=== PATIENT | male | born 1960 | race Asian ===

== ENCOUNTER 2016-09-11 18:20 | Emergency (ER) | payer SELFPAY ==
[2016-09-11] MEDS ORDERED: ASPIRIN 81 MG TABLET, CHEWABLE PO ONE (18:41)
[2016-09-11 19:02] LABS: ABSOLUTE EOSINOPHILS # (AUTO) 0.1 10^3/uL (0.0-0.6); ABSOLUTE LYMPHOCYTES (AUTO) 1.1 10^3/uL (0.5-4.7); ABSOLUTE MONOCYTES (AUTO) 0.4 10^3/uL (0.1-1.4); ABSOLUTE NEUT (AUTO) 2.6 10^3/uL (1.7-8.2); EOSINOPHILS % (AUTO) 2.5 % (0-6); HEMATOCRIT 41.3 % (37.9-51.0); HEMOGLOBIN 13.6 g/dL (13.5-17.0); HGB HCT DIFFERENCE -0.5; LYMPHOCYTES % (AUTO) 25.3 % (13-45); MEAN CORPUSCULAR HEMOGLOBIN 32.6 pg (27.0-33.4); MEAN CORPUSCULAR HGB CONC 32.9 g/dL (32.0-36.0); MEAN CORPUSCULAR VOLUME 99 fl (80-97); MONOCYTES % (AUTO) 9.1 % (3-13); RED BLOOD COUNT 4.17 10^6/uL (4.35-5.55); RED CELL DISTRIBUTION WIDTH 13.1 % (11.5-14.0); SEGMENTED NEUTROPHILS % (AUTO) 62.1 % (42-78); WHITE BLOOD COUNT 4.2 10^3/uL (4.0-10.5)
--- NOTE | 2016-09-11 19:12 | RADIOLOGY REPORT (SQ) ---
EXAM DESCRIPTION: CHEST SINGLE VIEW COMPLETED DATE/TIME: 09/11/2016 7:05 pm REASON FOR STUDY: bed 13 cp COMPARISON: 08/30/2015 EXAM PARAMETERS: NUMBER OF VIEWS: One view. TECHNIQUE: Single frontal radiographic view of the chest acquired. RADIATION DOSE: NA LIMITATIONS: None. FINDINGS: LUNGS AND PLEURA: No opacities, masses or pneumothorax. No pleural effusion. MEDIASTINUM AND HILAR STRUCTURES: No masses. Contour normal. HEART AND VASCULAR STRUCTURES: Heart normal in size. Normal vasculature. BONES: No acute findings. HARDWARE: EKG leads overlie the chest. OTHER: No other significant finding. IMPRESSION: NO ACUTE RADIOGRAPHIC FINDING IN THE CHEST. TECHNICAL DOCUMENTATION: JOB ID: [id number]
[2016-09-11 19:15] LABS: ALANINE AMINOTRANSFERASE 25 U/L (21-72); ALBUMIN 3.7 g/dL (3.5-5.0); ALKALINE PHOSPHATASE 56 U/L (38-126); ANION GAP 10 (5-19); ASPARTATE AMINO TRANSFERASE 26 U/L (17-59); BILIRUBIN,DIRECT 0.3 mg/dL (0.0-0.4); BILIRUBIN,TOTAL 0.8 mg/dL (0.2-1.3); BLOOD UREA NITROGEN 6 mg/dL (7-20); CALCIUM 8.9 mg/dL (8.4-10.2); CARBON DIOXIDE 23 mmol/L (22-30); CHLORIDE 105 mmol/L (98-107); CREATINE KINASE 236 U/L (55-170); CREATININE RESULT 0.83 mg/dL (0.52-1.25); GLUCOSE 91 mg/dL (75-110); POTASSIUM 3.9 mmol/L (3.6-5.0); SODIUM 138.1 mmol/L (137-145); TOTAL PROTEIN 6.4 g/dL (6.3-8.2)
[2016-09-11 19:27] LABS: CREATINE KINASE MB 1.24 ng/mL (<4.55)
[2016-09-11 19:28] LABS: TROPONIN I < 0.012 ng/mL
[2016-09-11] MEDS ORDERED: ALBUTEROL SULFATE 0.083% NEB 2.5 MG/3 ML AMPUL NEB ONE (19:54)
[2016-09-11] MEDS ORDERED: IBUPROFEN 600 MG TABLET PO ONE (19:54)
--- NOTE | 2016-09-11 19:56 | ER Document Report ---
ED Cardiac - General Chief Complaint: Chest Pain Stated Complaint: CHEST PAIN Time Seen by Provider: 09/11/16 18:50 Mode of Arrival: Ambulatory Information source: Patient TRAVEL OUTSIDE OF THE [place] IN LAST 30 DAYS: No - HPI Patient complains to provider of: Chest pain Was the onset of pain: Gradual When did pain begin: 3-4 days Is the pain a: New problem Chest pain location: Other - left chest wall Quality of pain: Achy Severity now: Mild Severity at worst: Mild Chest pain precipitating factors: At Rest Cardiac risk factors: Smoker Associated symptoms: Shortness of breath Exacerbated by: Coughing Similar symptoms previously: No Recently seen / treated by doctor: No Notes: Patient is a 55-year-old male in the emergency room complaining of left-sided chest wall pain that has been going on for the past 3-4 days, he reports it is worsened with coughing, or certain movements, he does report shortness of breath at times, denies a headache, no nausea or vomiting, states he has not had much of an appetite recently and has had decreased p.o. intake, he did not take anything for pain at home prior to coming to the emergency room, has no history of [place] or coronary artery disease that he is aware of - Related Data Allergies/Adverse Reactions: No Known Allergies Allergy (Verified 10/28/14 11:34) Past Medical History - General Information source: Patient - Social History Smoking Status: Current Every Day Smoker Chew tobacco use (# tins/day): Yes - 1/2 ppd Frequency of alcohol use: Rare Drug Abuse: None Family History: CAD, DM, Hyperlipidemia, Hypertension, Malignancy - Past Medical History Cardiac Medical History: Reports: Hx Heart Attack, Hx Hypercholesterolemia, Hx Hypertension Pulmonary Medical History: Reports: Hx Asthma, Hx Pneumonia Neurological Medical History: Reports: Hx Cerebrovascular Accident Endocrine Medical History: Reports: Hx Diabetes Mellitus Type 2 Musculoskeltal Medical History: Reports Hx Arthritis, Reports Hx Musculoskeletal Trauma Skin Medical History: Reports Hx Cellulitis Traumatic Medical History: Reports: Hx Fractures - Right ankle and leg Past Surgical History: Reports: Hx Appendectomy, Hx Orthopedic Surgery - orif left leg - Immunizations Immunizations up to date: Yes Hx Diphtheria, Pertussis, Tetanus Vaccination: Yes - PT UNSURE Review of Systems - Review of Systems Constitutional: No symptoms reported EENT: No symptoms reported Cardiovascular: See HPI Respiratory: See HPI Gastrointestinal: No symptoms reported Genitourinary: No symptoms reported Male Genitourinary: No symptoms reported Musculoskeletal: No symptoms reported Skin: No symptoms reported Hematologic/Lymphatic: No symptoms reported Neurological/Psychological: No symptoms reported -: Yes All other systems reviewed and negative Physical Exam - Vital signs Vitals: Pulse Ox 99 09/11/16 18:55 Interpretation: Normal - General General appearance: Appears well, Alert - HEENT Head: Normocephalic, Atraumatic Eyes: Normal Pupils: PERRL - Respiratory Respiratory status: No respiratory distress Chest status: Tender - tender to palpate in left anterior chest wall Breath sounds: Normal Chest palpation: Normal - Cardiovascular Rhythm: Regular Heart sounds: Normal auscultation Murmur: No - Abdominal Inspection: Normal Distension: No distension Bowel sounds: Normal Tenderness: Nontender Organomegaly: No organomegaly - Back Back: Normal, Nontender - Extremities General upper extremity: Normal inspection, Nontender, Normal color, Normal ROM , Normal temperature General lower extremity: Normal inspection, Nontender, Normal color, Normal ROM , Normal temperature, Normal weight bearing. No: Maria A's sign - Neurological Neuro grossly intact: Yes Cognition: Normal Orientation: AAOx4 [place] Coma Scale Eye Opening: Spontaneous [place] Coma Scale Verbal: Oriented [place] Coma Scale Motor: Obeys Commands [place] Coma Scale Total: 15 Speech: Normal Motor strength normal: LUE, RUE, LLE, RLE Sensory: Normal - Psychological Associated symptoms: Normal affect, Normal mood - Skin Skin Temperature: Warm Skin Moisture: Dry Skin Color: Normal Course - Re-evaluation Re-evalutation: 09/11/16 22:27 Patient symptoms consistent with musculoskeletal chest pain, likely from COPD/ bronchitis, he was advised to quit smoking, provided with an albuterol inhaler and prescription for Motrin, as well as information for follow-up, advised to return if any additional concerns, patient acknowledges understanding and agreement with this plan - Vital Signs Vital signs: Temp Pulse Resp BP Pulse Ox 98.3 F 16 149/83 H 97 09/11/16 19:02 09/11/16 21:01 09/11/16 21:01 09/11/16 21:01 - Laboratory Result Diagrams: 09/11/16 18:53 09/11/16 18:53 Laboratory results interpreted by me: 09/11/16 09/11/16 18:53 18:53 RBC 4.17 L MCV 99 H BUN 6 L Creatine Kinase 236 H - Diagnostic Test Radiology reviewed: Image reviewed, Reports reviewed - EKG Interpretation by Me EKG shows normal: Sinus rhythm Rate: Normal Rhythm: NSR Discharge - Discharge Clinical Impression: Chest wall pain, Bronchitis Condition: Stable Disposition: HOME, SELF-CARE Instructions: Bronchitis ([facility]), Bronchitis With Bronchospasm (Wheezing) ([facility]) Additional Instructions: Follow up with your primary care provider in one to 2 days. Return to the emergency room immediately if symptoms worsen or any additional concerns. Prescriptions: Albuterol Sulfate [Proair HFA Inhalation Aerosol 8.5 gm MDI] 1 puff IH Q4 PRN # 1 mdi PRN Reason: Ibuprofen [Motrin 600 Mg Tablet] 600 mg PO TID #30 tablet Forms: Smoking Cessation Education, Return to Work
[2016-09-11 21:14] VITALS: BP 149/83
--- NOTE | 2016-09-11 23:44 | EKG REPORT ---
SEVERITY:- ABNORMAL ECG - SINUS RHYTHM PROBABLE LEFT VENTRICULAR HYPERTROPHY ANTERIOR ST ELEVATION, PROBABLY DUE TO LVH : Confirmed by: Catalino Hsu 11-Sep-2016 23:43:35
== END 2016-09-11 21:21 | disposition home or self-care (01) ==
LOC: ER 18:20
DX: J40 Bronchitis, not specified as acute or chronic (principal); R07.89 Other chest pain; R06.02 Shortness of breath; F17.210 Nicotine dependence, cigarettes, uncomplicated; E78.00 Pure hypercholesterolemia, unspecified; I10 Essential (primary) hypertension; E11.9 Type 2 diabetes mellitus without complications; I25.2 Old myocardial infarction
CPT/HCPCS: 36415; 71010; 80053; 82550; 82553; 84484; 85025; 93005; 93010; 94640; 99285

== ENCOUNTER 2017-02-04 11:22 | Emergency (ER) | payer SELFPAY ==
[2017-02-04 11:29] VITALS: BP 120/78
== END 2017-02-04 12:37 | disposition left against medical advice (07) ==
LOC: ER 11:22
DX: Z53.21 Procedure and treatment not carried out due to patient leaving prior to being seen by health care provider (principal)

== ENCOUNTER 2017-03-18 16:47 | Emergency (ER) | payer SELFPAY ==
--- NOTE | 2017-03-18 17:47 | ER Document Report ---
ED Medical Screen (RME) - General Chief Complaint: Flu Symptoms Stated Complaint: SICK Time Seen by Provider: 03/18/17 17:40 Notes: 56-year-old heavy smoking alcoholic comes emergency room complaining of nausea vomiting, chest pain, chills, yellow productive cough sometimes with blood in it , yellow heavy nasal discharge with blood and sometimes. This going on for 3 weeks. No regular medical care. Brief exam shows patient have wheezes and rhonchi when he coughs. He does have nasal sinus congestion. There is a smell of alcohol although he claims he only drinks one a day. I have greeted and performed a rapid initial assessment of this patient. A comprehensive ED assessment and evaluation of the patient, analysis of test results and completion of the medical decision making process will be conducted by additional ED providers. TRAVEL OUTSIDE OF THE [place] IN LAST 30 DAYS: No - Related Data Allergies/Adverse Reactions: No Known Allergies Allergy (Verified 03/18/17 17:28) Home Medications: Current Home Medications No Home Medications 03/18/17 [History] Past Medical History - Social History Chew tobacco use (# tins/day): No Frequency of alcohol use: Occasional Drug Abuse: None - Past Medical History Cardiac Medical History: Reports: Hx Heart Attack, Hx Hypercholesterolemia, Hx Hypertension Pulmonary Medical History: Reports: Hx Asthma, Hx Bronchitis, Hx COPD, Hx Pneumonia Neurological Medical History: Reports: Hx Cerebrovascular Accident Endocrine Medical History: Reports: Hx Diabetes Mellitus Type 2 Renal/ Medical History: Denies: Hx Peritoneal Dialysis Musculoskeltal Medical History: Reports Hx Arthritis, Reports Hx Musculoskeletal Trauma Skin Medical History: Reports Hx Cellulitis Traumatic Medical History: Reports: Hx Fractures - Right ankle and leg Past Surgical History: Reports: Hx Appendectomy, Hx Orthopedic Surgery - orif left leg - Immunizations Immunizations up to date: Yes Hx Diphtheria, Pertussis, Tetanus Vaccination: Yes - PT UNSURE Physical Exam - Vital signs Vitals: Temp Pulse Resp BP Pulse Ox 97.8 F 88 12 95/64 L 97 03/18/17 17:03/18/17 17:09 03/18/17 17:03/18/17 17:03/18/17 17:09 Course - Vital Signs Vital signs: Temp Pulse Resp BP Pulse Ox 97.8 F 88 12 95/64 L 97 03/18/17 17:09 03/18/17 17:09 03/18/17 17:09 03/18/17 17:09 03/18/17 17:09
--- NOTE | 2017-03-18 18:07 | RADIOLOGY REPORT (SQ) ---
EXAM DESCRIPTION: CHEST PA/LAT COMPLETED DATE/TIME: 03/18/2017 5:55 pm REASON FOR STUDY: Wheezes, rhonchi, productive cough 3 weeks COMPARISON: 2015. TECHNIQUE: Frontal and lateral radiographic views of the chest acquired. NUMBER OF VIEWS: Two view. LIMITATIONS: None. FINDINGS: LUNGS AND PLEURA: No opacities, masses or pneumothorax. No pleural effusion. MEDIASTINUM AND HILAR STRUCTURES: No masses or contour abnormalities. HEART AND VASCULAR STRUCTURES: Heart normal size. No evidence for failure. BONES: No acute findings. HARDWARE: None in the chest. OTHER: No other significant finding. IMPRESSION: NO SIGNIFICANT RADIOGRAPHIC FINDING IN THE CHEST. TECHNICAL DOCUMENTATION: JOB ID: [id number] [employer]- All Rights Reserved
[2017-03-18 18:38] LABS: ABSOLUTE EOSINOPHILS # (AUTO) 0.1 10^3/uL (0.0-0.6); ABSOLUTE LYMPHOCYTES (AUTO) 1.3 10^3/uL (0.5-4.7); ABSOLUTE MONOCYTES (AUTO) 0.5 10^3/uL (0.1-1.4); EOSINOPHILS % (AUTO) 2.3 % (0-6); HEMATOCRIT 45.9 % (37.9-51.0); HEMOGLOBIN 15.4 g/dL (13.5-17.0); MEAN CORPUSCULAR HEMOGLOBIN 33.2 pg (27.0-33.4); MEAN CORPUSCULAR HGB CONC 33.5 g/dL (32.0-36.0); MEAN CORPUSCULAR VOLUME 99 fl (80-97); PLATELET COUNT 177 10^3/uL (150-450); RED BLOOD COUNT 4.64 10^6/uL (4.35-5.55); RED CELL DISTRIBUTION WIDTH 12.5 % (11.5-14.0); SEGMENTED NEUTROPHILS % (AUTO) 60.7 % (42-78); TOTAL CELLS COUNTED % (AUTO) 100 %; WHITE BLOOD COUNT 4.9 10^3/uL (4.0-10.5)
[2017-03-18 18:50] LABS: ALANINE AMINOTRANSFERASE 119 U/L (21-72); ALCOHOL 264 mg/dL (NONE DETECTED); ALKALINE PHOSPHATASE 77 U/L (38-126); ANION GAP 10 (5-19); ASPARTATE AMINO TRANSFERASE 212 U/L (17-59); BILIRUBIN,DIRECT 0.2 mg/dL (0.0-0.4); BILIRUBIN,TOTAL 0.6 mg/dL (0.2-1.3); BLOOD UREA NITROGEN 2 mg/dL (7-20); CALCIUM 9.3 mg/dL (8.4-10.2); CARBON DIOXIDE 25 mmol/L (22-30); CHLORIDE 92 mmol/L (98-107); GLUCOSE 86 mg/dL (75-110); POTASSIUM 4.2 mmol/L (3.6-5.0); TOTAL PROTEIN 6.6 g/dL (6.3-8.2)
[2017-03-18] MEDS ORDERED: NORMAL SALINE 1000 ML 1,000 ML IV PRN (19:38)
[2017-03-18] MEDS ORDERED: IPRATROPIUM/ALBUTEROL 0.5-2.5 MG/3 ML AMPUL NEB ONE (19:38)
[2017-03-18] MEDS ORDERED: DEXAMETHASONE SOD PHOS INJ 10 MG/1 ML VIAL IM ONE (19:38)
--- NOTE | 2017-03-18 19:43 | ER Document Report ---
ED General - General Chief Complaint: Flu Symptoms Stated Complaint: SICK Time Seen by Provider: 03/18/17 17:40 TRAVEL OUTSIDE OF THE [place] IN LAST 30 DAYS: No - HPI Notes: Patient is a 56-year-old male with a history of alcohol abuse and tobacco abuse who presents to the ED complaining of nasal congestion/discharge, subjective fever, body ache, dry nonproductive cough, wheezing 2-3 weeks. Patient states that he has a blood tinge in his nasal discharge at times when he blows his nose. Patient states that he has had 1 week of steady chest pain to the left anterior chest wall that worsens when he pushes on it per patient. Patient states that he did have an episode of nausea and vomiting over the last 1-2 days. Patient states that he is still eating and drinking, but does have a decreased p.o. intake at this time. Patient states that he is urinating normally and having normal bowel movements. Patient states that he is ready and wants to go home. PMH of NH (pt not sure if any stents), COPD, DM, HTN. Denies any drug allergies. Denies any headache, neck pain, URI, sore throat, palpitations, syncope, shortness of breath, dyspnea, abdominal pain, diarrhea, urinary retention, dysuria, hematuria, loss of control of bowel or bladder, numbness/tingling, saddle anesthesia, muscle paralysis/weakness, or rash. - Related Data Allergies/Adverse Reactions: No Known Allergies Allergy (Verified 03/18/17 17:28) Home Medications: Current Home Medications No Home Medications 03/18/17 [History] Past Medical History - Social History Smoking Status: Current Every Day Smoker Chew tobacco use (# tins/day): No Frequency of alcohol use: Occasional Drug Abuse: None Family History: CAD, DM, Hyperlipidemia, Hypertension, Malignancy Patient has suicidal ideation: No Patient has homicidal ideation: No - Past Medical History Cardiac Medical History: Reports: Hx Heart Attack, Hx Hypercholesterolemia, Hx Hypertension Pulmonary Medical History: Reports: Hx Asthma, Hx Bronchitis, Hx COPD, Hx Pneumonia Neurological Medical History: Reports: Hx Cerebrovascular Accident Endocrine Medical History: Reports: Hx Diabetes Mellitus Type 2 Renal/ Medical History: Denies: Hx Peritoneal Dialysis Musculoskeltal Medical History: Reports Hx Arthritis, Reports Hx Musculoskeletal Trauma Skin Medical History: Reports Hx Cellulitis Traumatic Medical History: Reports: Hx Fractures - Right ankle and leg Past Surgical History: Reports: Hx Appendectomy, Hx Orthopedic Surgery - orif left leg - Immunizations Immunizations up to date: Yes Hx Diphtheria, Pertussis, Tetanus Vaccination: Yes - PT UNSURE Review of Systems - Review of Systems Notes: REVIEW OF SYSTEMS: CONSTITUTIONAL : see hpi EENT: see hpi CARDIOVASCULAR: see hpi. Denies palpitations or racing or irregular heart beat. Denies ankle edema. RESPIRATORY: Denies cough, cold, or chest congestion. Denies shortness of breath, difficulty breathing, or wheezing. GASTROINTESTINAL: Denies abdominal pain or distention. see hpi. Denies blood in vomitus, stools, or per rectum. Denies black, tarry stools. Denies constipation. GENITOURINARY: Denies difficulty urinating, painful urination, burning, frequency, blood in urine, or discharge. MUSCULOSKELETAL: Denies back or neck pain or stiffness. Denies joint pain or swelling. SKIN: Denies rash, lesions or sores. NEUROLOGICAL: Denies passing out or loss of consciousness. Denies dizziness or lightheadedness. Denies headache. Denies weakness or paralysis or loss of use of either side. Denies problems with gait or speech. Denies sensory loss, numbness, or tingling. Denies seizures. ALL OTHER SYSTEMS REVIEWED AND NEGATIVE. Dictation was performed using [employer] voice recognition software Physical Exam - Vital signs Vitals: Temp Pulse Resp BP Pulse Ox 97.8 F 88 12 95/64 L 97 03/18/17 17:09 03/18/17 17:09 03/18/17 17:09 03/18/17 17:09 03/18/17 17:09 Notes: PHYSICAL EXAMINATION: GENERAL: Well-appearing, well-nourished and in no acute distress. A&Ox4, pt answers questions appropriately. Smell of ETOH noted. HEAD: Atraumatic, normocephalic. EYES: Pupils equal round and reactive to light, extraocular movements intact, sclera anicteric, conjunctiva are normal. ENT: EAC clear b/l. TM's intact b/l without erythema, fluid, or perforation. Nares patent and with yellow discharge. oropharynx clear without exudates. No tonsilar hypertrophy or erythema. Moist mucous membranes. No sinus tenderness. No airway compromise. NECK: Normal range of motion, supple without lymphadenopathy. No rigidity/ meningismus. LUNGS: Wheezing throughout, no retractions or distress HEART: Regular rate and rhythm without murmurs, rubs, gallops. ABDOMEN: Soft, nontender, nondistended abdomen. No guarding, no rebound. No masses appreciated. Normal bowel sounds present. No CVA tenderness bilaterally. Musculoskeletal: FROM to passive/active. Strength 5+/5. Maria A neg. No calf erythema/swelling Extremities: No cyanosis, clubbing, or edema b/l. Peripheral pulses 2+. Capillary refill less than 3 seconds. NEUROLOGICAL: Cranial nerves grossly intact. Normal speech, normal gait. Normal sensory, motor exams PSYCH: Normal mood, normal affect. SKIN: Warm, Dry, normal turgor, no rashes or lesions noted. Course - Re-evaluation Re-evalutation: 03/18/17 20:16 Patient is an afebrile, well-hydrated, 56-year-old male who presents the ED with a 264 blood alcohol, URI, acute bronchitis with wheezing, and chest wall pain found on physical exam. Vitals are stable. Upon entering the room, patient was resting that it is not worsening he is ready to go home. Patient answered all questions appropriately and was cognitively aware and on point. Patient is tolerating p.o. without any difficulties. Thoroughly reviewed with patient that I want to run cardiac labs as well as breathing treatments and medicine to help with his wheezing. Patient states that he is not worried about his breathing and just wants to go. Patient does have a ride home. Risks and benefits understood including the possibility of if testing is not completed and treatment aborted. Patient verbalized understanding of this decision and signed out AMA. Advised patient to follow-up closely with his primary care doctor in the next 1-2 days otherwise return to the ED with any worsening/ongoing symptoms. Patient is in agreement. - Vital Signs Vital signs: Temp Pulse Resp BP Pulse Ox 98.0 F 82 15 97/61 L 97 03/18/17 19:27 03/18/17 19:27 03/18/17 19:27 03/18/17 19:27 03/18/17 19:27 - Laboratory Result Diagrams: 03/18/17 18:08 03/18/17 18:08 Laboratory results interpreted by me: 03/18/17 03/18/17 03/18/17 18:08 18:08 18:08 MCV 99 H Sodium 127.0 L Chloride 92 L BUN 2 L AST 212 H ALT 119 H Creatine Kinase 341 H Discharge - Discharge Clinical Impression: Acute bronchitis Qualifiers: Bronchitis organism: unspecified organism Qualified Code(s): J20.9 - Acute bronchitis, unspecified Condition: Stable Disposition: AGAINST MEDICAL ADVICE
[2017-03-18 19:44] VITALS: BP 97/61
[2017-03-18] MEDS ORDERED: MAGNESIUM SULFATE/D5W 1 GM/100 ML RTUPB IV SCH (19:45)
== END 2017-03-18 19:55 | disposition left against medical advice (07) ==
LOC: ER 16:47
DX: J44.0 Chronic obstructive pulmonary disease with (acute) lower respiratory infection (principal); J20.9 Acute bronchitis, unspecified; J34.89 Other specified disorders of nose and nasal sinuses; R05 Cough; R07.89 Other chest pain; R11.2 Nausea with vomiting, unspecified; I10 Essential (primary) hypertension; I25.2 Old myocardial infarction; E11.9 Type 2 diabetes mellitus without complications; F17.200 Nicotine dependence, unspecified, uncomplicated; Z87.01 Personal history of pneumonia (recurrent); Z53.20 Procedure and treatment not carried out because of patient's decision for unspecified reasons
CPT/HCPCS: 36415; 71046; 80053; 80307; 82550; 85025; 87070; 87077; 87186; 87205; 99283

== ENCOUNTER 2017-03-25 20:07 | Emergency (ER) | payer SELFPAY ==
[2017-03-25] MEDS ORDERED: NORMAL SALINE 1000 ML 1,000 ML IV ONE (20:23)
--- NOTE | 2017-03-25 20:25 | ER Document Report ---
ED General - General Stated Complaint: RESPIRATORY DISTRESS Time Seen by Provider: 03/25/17 20:16 Notes: Patient is a 56-year-old male who comes emergency department for chief complaint of concerns about his breathing. Patient states that his neighbor called EMS after they had trouble arousing him. He has had some alcohol tonight , he has had cough and intermittent shortness of breath with wheezing for the past week or so. He denies fevers. He denies vomiting or chest pain. He states he hurts in his right flank intermittently as well. He denies injury. He takes a daily aspirin, smokes, does not take any daily medications otherwise. He states he was prescribed antibiotics for pneumonia 1 week ago but did not fill it. TRAVEL OUTSIDE OF THE [place] IN LAST 30 DAYS: No - Related Data Allergies/Adverse Reactions: No Known Allergies Allergy (Verified 03/18/17 17:28) Past Medical History - General Information source: Patient - Social History Smoking Status: Current Every Day Smoker Smoking Education Provided: Yes - <3 min Frequency of alcohol use: Heavy Lives with: Alone Family History: CAD, DM, Hyperlipidemia, Hypertension, Malignancy - Past Medical History Cardiac Medical History: Reports: Hx Heart Attack, Hx Hypercholesterolemia, Hx Hypertension Pulmonary Medical History: Reports: Hx Asthma, Hx Bronchitis, Hx COPD, Hx Pneumonia Neurological Medical History: Reports: Hx Cerebrovascular Accident Endocrine Medical History: Reports: Hx Diabetes Mellitus Type 2 Renal/ Medical History: Denies: Hx Peritoneal Dialysis Musculoskeltal Medical History: Reports Hx Arthritis, Reports Hx Musculoskeletal Trauma Skin Medical History: Reports Hx Cellulitis Traumatic Medical History: Reports: Hx Fractures - Right ankle and leg Past Surgical History: Reports: Hx Appendectomy, Hx Orthopedic Surgery - orif left leg - Immunizations Immunizations up to date: Yes Hx Diphtheria, Pertussis, Tetanus Vaccination: Yes - PT UNSURE Review of Systems - Review of Systems Constitutional: See HPI EENT: No symptoms reported Cardiovascular: See HPI Respiratory: See HPI Gastrointestinal: No symptoms reported Genitourinary: No symptoms reported Male Genitourinary: No symptoms reported Musculoskeletal: See HPI Skin: No symptoms reported Hematologic/Lymphatic: No symptoms reported Neurological/Psychological: No symptoms reported Physical Exam - Vital signs Vitals: Temp Pulse Resp BP Pulse Ox 97.4 F 80 12 126/77 H 97 03/25/17 20:07 03/25/17 20:07 03/25/17 20:07 03/25/17 20:07 03/25/17 20:07 - General General appearance: Other - Patient slurring his words and appears intoxicated but he is still alert, cooperative, conversational. He is unsteady on his feet In distress: None - HEENT Head: Normocephalic, Atraumatic Eyes: Normal Conjunctiva: Normal Extraocular movements intact: Yes Eyelashes: Normal Pupils: PERRL Mouth/Lips: Normal Mucous membranes: Normal Pharynx: Normal Neck: Normal - Respiratory Respiratory status: No respiratory distress. No: Respiratory distress, Labored , Tachypnea Breath sounds: Decreased air movement. No: Nonproductive cough, Productive cough, Rales, Rhonchi, Stridor, Wheezing - Cardiovascular Rhythm: Regular. No: Tachycardia Heart sounds: Normal auscultation, S1 appreciated, S2 appreciated - Abdominal Inspection: Normal Tenderness: Nontender. No: Tender, Guarding - Back Back: Normal, Nontender - Extremities General upper extremity: Normal inspection, Nontender, Normal strength, Normal temperature General lower extremity: Normal inspection, Nontender, Normal strength, Normal temperature - Neurological Neuro grossly intact: Yes Cognition: Normal Orientation: AAOx4 Cranial nerves: Normal Cerebellar coordination: Gait ataxia Motor strength normal: LUE, RUE, LLE, RLE Additional motor exam normals: Equal customer experience strategist - Skin Skin Temperature: Warm Skin Moisture: Dry Skin Color: Normal Course - Re-evaluation Re-evalutation: EKG showing questionable minimal anterior ST elevations. These appear to be consistent with prior. Discussed with Dr. Cassidy. Repeat EKG was performed approximately 30 minutes later and does not show any significant differences. 2 sets of troponins were obtained and shows no concerning elevation. Patient denying any chest pain, states he felt short of breath earlier and has intermittent cough and congestion with wheezing. Chest x-ray unremarkable. Venous blood gas unremarkable. Vital signs unremarkable. Patient in no respiratory distress on my examination, has a few scattered wheezes intermittently which clear with coughing. CBC unremarkable, chemistry shows mild elevation of liver function tests consistent with alcohol use tonight, patient states he "drank a some 40s". He is clinically intoxicated. He was initially given IV fluids. Urinalysis is unremarkable. Patient medically clear but he does not have a ride home and he is too intoxicated to leave. Patient will be monitored in the emergency department until he is either clinically sober and walking without any difficulty and without having any slurring of words or until he has a ride home. 03/26/17 06:50 Patient is easily arousable, stands and walks without difficulty, is clinically sober. He is waiting for a ride home. - Vital Signs Vital signs: Temp Pulse Resp BP Pulse Ox 97.4 F 80 16 126/85 H 97 03/25/17 20:07 03/25/17 20:07 03/26/17 02:31 03/26/17 02:31 03/26/17 02:31 - Laboratory Result Diagrams: 03/25/17 20:28 03/25/17 20:28 Laboratory results interpreted by me: 03/25/17 03/25/17 20:28 20:28 MCV 99 H AST 206 H ALT 182 H Discharge - Discharge Clinical Impression: Shortness of breath Alcohol intoxication Qualifiers: Complication of substance-induced condition: with unspecified complication Qualified Code(s): F10.929 - Alcohol use, unspecified with intoxication, unspecified Condition: Stable Disposition: HOME, SELF-CARE Additional Instructions: Fill and take your antibiotic as we discussed. Follow-up with your primary care this week for additional evaluation and management. Return for any concerning symptoms including fever, difficulty breathing, or any other concerning symptoms. Forms: Smoking Cessation Education
[2017-03-25 20:41] LABS: ABSOLUTE BASOPHILS # (AUTO) 0.1 10^3/uL (0.0-0.2); ABSOLUTE EOSINOPHILS # (AUTO) 0.1 10^3/uL (0.0-0.6); ABSOLUTE LYMPHOCYTES (AUTO) 1.6 10^3/uL (0.5-4.7); ABSOLUTE MONOCYTES (AUTO) 0.5 10^3/uL (0.1-1.4); ABSOLUTE NEUT (AUTO) 2.6 10^3/uL (1.7-8.2); BASOPHILS % (AUTO) 1.6 % (0-2); EOSINOPHILS % (AUTO) 2.5 % (0-6); HEMATOCRIT 43.4 % (37.9-51.0); HEMOGLOBIN 14.4 g/dL (13.5-17.0); LYMPHOCYTES % (AUTO) 32.8 % (13-45); MEAN CORPUSCULAR HEMOGLOBIN 32.9 pg (27.0-33.4); MEAN CORPUSCULAR HGB CONC 33.1 g/dL (32.0-36.0); MEAN CORPUSCULAR VOLUME 99 fl (80-97); MONOCYTES % (AUTO) 9.9 % (3-13); PLATELET COUNT 156 10^3/uL (150-450); RED BLOOD COUNT 4.37 10^6/uL (4.35-5.55); RED CELL DISTRIBUTION WIDTH 12.6 % (11.5-14.0); SEGMENTED NEUTROPHILS % (AUTO) 53.2 % (42-78); TOTAL CELLS COUNTED % (AUTO) 100 %
[2017-03-25 20:58] LABS: APPEARANCE,URINE CLEAR; BILIRUBIN,URINE NEGATIVE (NEGATIVE); COLOR,URINE STRAW; GLUCOSE, URINE NEGATIVE (NEGATIVE); KETONES,URINE NEGATIVE (NEGATIVE); LEUKOCYTE ESTERASE,URINE NEGATIVE (NEGATIVE); NITRITE,URINE NEGATIVE (NEGATIVE); PROTEIN,URINE NEGATIVE (NEGATIVE); URINE SPECIFIC GRAVITY 1.002; UROBILINOGEN,URINE NEGATIVE mg/dL (<2.0)
--- NOTE | 2017-03-25 20:58 | RADIOLOGY REPORT (SQ) ---
EXAM DESCRIPTION: CHEST SINGLE VIEW COMPLETED DATE/TIME: 03/25/2017 8:42 pm REASON FOR STUDY: shortness of breath COMPARISON: 03/18/2017 EXAM PARAMETERS: NUMBER OF VIEWS: One view. TECHNIQUE: Single frontal radiographic view of the chest acquired. RADIATION DOSE: NA LIMITATIONS: None. FINDINGS: LUNGS AND PLEURA: No opacities, masses or pneumothorax. No pleural effusion. MEDIASTINUM AND HILAR STRUCTURES: No masses. Contour normal. HEART AND VASCULAR STRUCTURES: Heart normal in size. Normal vasculature. BONES: No acute findings. HARDWARE: None in the chest. OTHER: No other significant finding. IMPRESSION: NO ACUTE RADIOGRAPHIC FINDING IN THE CHEST. TECHNICAL DOCUMENTATION: JOB ID: [id number] [employer] All Rights Reserved
[2017-03-25 20:59] LABS: ALANINE AMINOTRANSFERASE 182 U/L (21-72); ALKALINE PHOSPHATASE 87 U/L (38-126); ANION GAP 13 (5-19); ASPARTATE AMINO TRANSFERASE 206 U/L (17-59); BILIRUBIN,DIRECT 0.3 mg/dL (0.0-0.4); BILIRUBIN,TOTAL 0.5 mg/dL (0.2-1.3); BLOOD UREA NITROGEN 7 mg/dL (7-20); CALCIUM 9.6 mg/dL (8.4-10.2); CARBON DIOXIDE 23 mmol/L (22-30); CHLORIDE 102 mmol/L (98-107); GLUCOSE 82 mg/dL (75-110); POTASSIUM 4.2 mmol/L (3.6-5.0); SODIUM 137.6 mmol/L (137-145); TOTAL PROTEIN 6.7 g/dL (6.3-8.2)
[2017-03-25 21:20] LABS: VENOUS BLOOD HCO3 22.9 mmol/L (20-32); VENOUS BLOOD PH 7.38 (7.30-7.42)
[2017-03-26] MEDS ORDERED: FAMOTIDINE 20 MG TABLET PO ONE (03:16)
[2017-03-26] MEDS ORDERED: IBUPROFEN 600 MG TABLET PO ONE (03:16)
--- NOTE | 2017-03-26 06:43 | EKG REPORT ---
SEVERITY:- ABNORMAL ECG - SINUS RHYTHM ATRIAL PREMATURE COMPLEX PROBABLE LEFT VENTRICULAR HYPERTROPHY ANTERIOR ST ELEVATION, PROBABLY DUE TO LVH : Confirmed by: Fabricio Robles MD 26-Mar-2017 06:42:51
--- NOTE | 2017-03-26 06:45 | EKG REPORT ---
SEVERITY:- ABNORMAL ECG - SINUS RHYTHM PROBABLE LEFT VENTRICULAR HYPERTROPHY ST ELEVATION, CONSIDER ANTERIOR INJURY : Confirmed by: Fabricio Robles MD 26-Mar-2017 06:44:01
[2017-03-26 07:39] VITALS: BP 112/71
== END 2017-03-26 07:39 | disposition home or self-care (01) ==
LOC: ER 20:07
DX: R06.02 Shortness of breath (principal); F10.929 Alcohol use, unspecified with intoxication, unspecified; F17.200 Nicotine dependence, unspecified, uncomplicated; I25.2 Old myocardial infarction; E78.00 Pure hypercholesterolemia, unspecified; I10 Essential (primary) hypertension; J44.9 Chronic obstructive pulmonary disease, unspecified; Z86.73 Personal history of transient ischemic attack (TIA), and cerebral infarction without residual deficits; E11.9 Type 2 diabetes mellitus without complications
CPT/HCPCS: 93005; 99285; 96360; 36415; 85025; 80053; 81001; 84484; 82803; 71045; 93010; J7030

== ENCOUNTER 2017-04-01 12:25 | Emergency (ER) | payer SELFPAY ==
--- NOTE | 2017-04-01 12:59 | ER Document Report ---
ED General - General Chief Complaint: ETOH Abuse Stated Complaint: ETOH Time Seen by Provider: 04/01/17 12:37 Notes: The patient is a 56-year-old male, past medical history chronic alcoholism, COPD , current smoker, presents after he was drinking alcohol this morning. He said he was sleeping when his neighbor found him unresponsive. His neighbor began to do CPR and called 911. Patient says that he was only drinking alcohol this morning. He was just discharged from [facility] a few days ago for a COPD exacerbation. He is complaining of mild chest wall pain, but denies headache, blurry vision, focal weakness, numbness, tingling, open wounds, shortness of breath or fevers. TRAVEL OUTSIDE OF THE [place] IN LAST 30 DAYS: No - Related Data Allergies/Adverse Reactions: No Known Allergies Allergy (Verified 03/18/17 17:28) Past Medical History - General Information source: Patient - Social History Smoking Status: Current Every Day Smoker Frequency of alcohol use: Heavy Family History: CAD, DM, Hyperlipidemia, Hypertension, Malignancy - Past Medical History Cardiac Medical History: Reports: Hx Heart Attack, Hx Hypercholesterolemia, Hx Hypertension Pulmonary Medical History: Reports: Hx Asthma, Hx Bronchitis, Hx COPD, Hx Pneumonia Neurological Medical History: Reports: Hx Cerebrovascular Accident Endocrine Medical History: Reports: Hx Diabetes Mellitus Type 2 Renal/ Medical History: Denies: Hx Peritoneal Dialysis Musculoskeltal Medical History: Reports Hx Arthritis, Reports Hx Musculoskeletal Trauma Skin Medical History: Reports Hx Cellulitis Traumatic Medical History: Reports: Hx Fractures - Right ankle and leg Past Surgical History: Reports: Hx Appendectomy, Hx Orthopedic Surgery - orif left leg - Immunizations Immunizations up to date: Yes Hx Diphtheria, Pertussis, Tetanus Vaccination: Yes - PT UNSURE Review of Systems - Review of Systems Notes: REVIEW OF SYSTEMS: CONSTITUTIONAL: -fevers, -chills EENT: -eye pain, -difficulty swallowing, -nasal congestion CARDIOVASCULAR: +chest wall pain, -syncope. RESPIRATORY: -cough, -SOB GASTROINTESTINAL: -abdominal pain, -nausea, -vomiting, -diarrhea GENITOURINARY: -dysuria, -hematuria MUSCULOSKELETAL: -back pain, -neck pain SKIN: -rash or skin lesions. HEMATOLOGIC: -easy bruising or bleeding. LYMPHATIC: -swollen, enlarged glands. NEUROLOGICAL: -altered mental status, -headache, -neurologic symptoms PSYCHIATRIC: -anxiety, -depression, +ETOH abuse ALL OTHER SYSTEMS REVIEWED AND NEGATIVE. Physical Exam - Vital signs Vitals: Pulse Resp BP Pulse Ox 92 20 100/65 97 04/01/17 12:49 04/01/17 12:49 04/01/17 12:49 04/01/17 12:49 - Notes Notes: PHYSICAL EXAMINATION: GENERAL: Well-appearing, well-nourished and in no acute distress. Smells of ETOH. HEAD: Atraumatic, normocephalic. EYES: Pupils equal round and reactive to light, extraocular movements intact, sclera anicteric, conjunctiva are normal. ENT: nares patent, oropharynx clear without exudates. Moist mucous membranes. NECK: Normal range of motion, supple without lymphadenopathy LUNGS: Breath sounds clear to auscultation bilaterally and equal. No wheezes rales or rhonchi. HEART: Regular rate and rhythm without murmurs ABDOMEN: Soft, nontender, normoactive bowel sounds. No guarding, no rebound. No masses appreciated. EXTREMITIES: Normal range of motion, no pitting or edema. No cyanosis. NEUROLOGICAL: Cranial nerves grossly intact. Normal speech, normal gait. Normal sensory and motor exams. PSYCH: Normal mood, normal affect. SKIN: Warm, Dry, normal turgor, no rashes or lesions noted. Course - Re-evaluation Re-evalutation: Pt appears well and is in no acute distress. He said that he was only drinking alcohol this morning. Patient said that he is tired of hospitals because he was just admitted last week being [facility] for a COPD exacerbation. He does not want to stay. Convinced him to at least check blood work and x-ray. 04/01/17 13:36 Pt is adamant that he feels fine and is having no symptoms at this time. He appears clinically sober. Patient has the capacity to make decisions and understands the risk of leaving prior to the results of his blood tests. He was told that he could , have a heart attack or suffer permanent disability if he leaves AGAINST MEDICAL ADVICE. Patient is able to repeat these back. Instructed him to return at any time for further evaluation and treatment. Given very strict return precautions and he understands. He called his friend/neighbor who will be taking the patient home. - Vital Signs Vital signs: Temp Pulse Resp BP Pulse Ox 92 20 100/65 97 04/01/17 12:49 04/01/17 12:49 04/01/17 12:49 04/01/17 12:49 - Laboratory Result Diagrams: 04/01/17 13:17 04/01/17 13:17 Laboratory results interpreted by me: 04/01/17 13:17 WBC 3.3 L RBC 3.99 L Hgb 13.3 L MCV 101 H - Diagnostic Test Radiology reviewed: Image reviewed, Reports reviewed Radiology results interpreted by me: CXR: NAD Discharge - Discharge Clinical Impression: Alcohol abuse Condition: Stable Disposition: AGAINST MEDICAL ADVICE Additional Instructions: Return at any time for further evaluation and treatment. Cut down on your drinking! ACUTE ALCOHOL INTOXICATION and ALCOHOL ABUSE: Your evaluation revealed very high levels of alcohol. You can from drinking a large amount of alcohol rapidly! Further, there's the risk of falls , traffic accidents, and fights. A high portion (about 50 percent) of the serious injuries seen in hospital emergency rooms are caused by alcohol. Alcohol overdosage is usually due to an underlying emotional or psychiatric problem. You may benefit from counselling. If "binge" drinking is an ongoing problem for you, or if you drink ANY AMOUNT of alcohol EVERY day, you most likely have a tendency to alcoholism. You should avoid alcohol totally. We can refer you for treatment. Persons with alcohol problems are often also prone to other addictions -- you should discuss any use of medications or drugs with the doctor. You should be watched at home for the next several hours by someone who has not been drinking. Get extra fluids for the next 24 hours. Call the doctor if there is repeated vomiting, increasing headache, decreasing level of alertness, or any other worsening. CHRONIC ALCOHOLISM and ALCOHOL ABUSE: Your evaluation reveals evidence of chronic alcoholism, an addiction to alcohol. The tendency to alcoholism may be inherited. Chronic use of alcohol weakens muscles, causes fatty deposits in the liver , damages the stomach, makes you more prone to infections, and can cause defects in unborn children. In the long run, brain atrophy and cirrhosis of the liver result. You are also at greater risk for certain types of cancer, such as cancer of the mouth, throat, stomach, and liver. Counselling services are available to help you. In-hospital treatment programs often help. Support groups such as Alcoholics Anonymous can be very useful in beating this addiction. Your physician can make a referral for you. As alcoholics often are prone to other addictions, you should discuss your use of any other medications with the doctor. OVERDOSE / INGESTION: You have taken more medication than you should have. After your evaluation and care, it is felt that your overdose is not likely to be harmful or of any significant consequences to you and you are being discharged. In the future, you should be careful not to take more medications than what is prescribed for you. Although your overdose does not seem to be of any danger to you at this time, if you develop any unusual or unexpected symptoms after your discharge, you should return to the Emergency Department immediately for re-evaluation. FOLLOW-UP CARE: If you have been referred to a physician for follow-up care, call the physician s office for an appointment as you were instructed or within the next two days. If you experience worsening or a significant change in your symptoms, notify the physician immediately or return to the Emergency Department at any time for re-evaluation. Referrals: [facility] [Outside] - Follow up as needed
--- NOTE | 2017-04-01 13:16 | RADIOLOGY REPORT (SQ) ---
EXAM DESCRIPTION: CHEST SINGLE VIEW COMPLETED DATE/TIME: 04/01/2017 1:03 pm REASON FOR STUDY: SOB COMPARISON: 03/25/2017 EXAM PARAMETERS: NUMBER OF VIEWS: One view. TECHNIQUE: Single frontal radiographic view of the chest acquired. RADIATION DOSE: NA LIMITATIONS: None. FINDINGS: LUNGS AND PLEURA: No new opacities, masses or pneumothorax. No pleural effusion. MEDIASTINUM AND HILAR STRUCTURES: No masses. Contour normal. HEART AND VASCULAR STRUCTURES: Heart normal in size. Normal vasculature. BONES: No acute findings. HARDWARE: None in the chest. OTHER: No other significant finding. IMPRESSION: NO ACUTE RADIOGRAPHIC FINDING IN THE CHEST. NO SIGNIFICANT CHANGE FROM PRIOR STUDY. TECHNICAL DOCUMENTATION: JOB ID: [id number] [email or web address]- All Rights Reserved
[2017-04-01 13:27] LABS: ABSOLUTE EOSINOPHILS # (AUTO) 0.1 10^3/uL (0.0-0.6); ABSOLUTE LYMPHOCYTES (AUTO) 1.1 10^3/uL (0.5-4.7); ABSOLUTE MONOCYTES (AUTO) 0.3 10^3/uL (0.1-1.4); ABSOLUTE NEUT (AUTO) 1.8 10^3/uL (1.7-8.2); BASOPHILS % (AUTO) 1.3 % (0-2); EOSINOPHILS % (AUTO) 2.9 % (0-6); HEMATOCRIT 40.1 % (37.9-51.0); HEMOGLOBIN 13.3 g/dL (13.5-17.0); LYMPHOCYTES % (AUTO) 32.2 % (13-45); MEAN CORPUSCULAR HEMOGLOBIN 33.3 pg (27.0-33.4); MEAN CORPUSCULAR HGB CONC 33.1 g/dL (32.0-36.0); MEAN CORPUSCULAR VOLUME 101 fl (80-97); MONOCYTES % (AUTO) 9.4 % (3-13); PLATELET COUNT 162 10^3/uL (150-450); RED BLOOD COUNT 3.99 10^6/uL (4.35-5.55); RED CELL DISTRIBUTION WIDTH 12.8 % (11.5-14.0); SEGMENTED NEUTROPHILS % (AUTO) 54.2 % (42-78); TOTAL CELLS COUNTED % (AUTO) 100 %; WHITE BLOOD COUNT 3.3 10^3/uL (4.0-10.5)
[2017-04-01 13:29] VITALS: BP 100/65
[2017-04-01 13:47] LABS: ALANINE AMINOTRANSFERASE 81 U/L (21-72); ALBUMIN 3.3 g/dL (3.5-5.0); ALKALINE PHOSPHATASE 55 U/L (38-126); ANION GAP 10 (5-19); ASPARTATE AMINO TRANSFERASE 86 U/L (17-59); BILIRUBIN,DIRECT 0.2 mg/dL (0.0-0.4); BILIRUBIN,TOTAL 0.4 mg/dL (0.2-1.3); BLOOD UREA NITROGEN 5 mg/dL (7-20); CALCIUM 8.9 mg/dL (8.4-10.2); CARBON DIOXIDE 24 mmol/L (22-30); CHLORIDE 104 mmol/L (98-107); CREATINE KINASE 62 U/L (55-170); GLUCOSE 80 mg/dL (75-110); POTASSIUM 4.1 mmol/L (3.6-5.0); TOTAL PROTEIN 5.7 g/dL (6.3-8.2)
--- NOTE | 2017-04-01 17:22 | EKG REPORT ---
SEVERITY:- NORMAL ECG - SINUS RHYTHM : Confirmed by: Catalino Hsu 01-Apr-2017 17:21:34
== END 2017-04-01 14:15 | disposition left against medical advice (07) ==
LOC: ER 12:25
DX: F10.20 Alcohol dependence, uncomplicated (principal); J44.9 Chronic obstructive pulmonary disease, unspecified; R07.89 Other chest pain; I10 Essential (primary) hypertension; I25.2 Old myocardial infarction; E11.9 Type 2 diabetes mellitus without complications; F17.200 Nicotine dependence, unspecified, uncomplicated; Z53.29 Procedure and treatment not carried out because of patient's decision for other reasons
CPT/HCPCS: 36415; 71045; 80053; 82550; 84484; 85025; 93005; 93010; 99284

== ENCOUNTER 2017-04-18 00:46 | Emergency (ER) | payer SELFPAY ==
--- NOTE | 2017-04-18 01:04 | ER Document Report ---
ED General - General Chief Complaint: Shortness Of Breath Stated Complaint: SHORTNESS OF BREATH Time Seen by Provider: 04/18/17 00:56 Notes: Patient is a 56-year-old male who presents with complaint of difficulty breathing. He says difficulty breathing has been there for several months. He was recently admitted to [facility] and had cardiac stress testing CT scan of his lungs. He said all these tests are negative. He says he might have had some fluid in his lungs. He is a chronic alcoholic. He admits he still drinks. He also smokes every day. He denies any chest pain. Denies any recent fevers or infections. He has no other complaints at this time. TRAVEL OUTSIDE OF THE [place] IN LAST 30 DAYS: No - Related Data Allergies/Adverse Reactions: No Known Allergies Allergy (Verified 04/18/17 00:54) Past Medical History - Social History Smoking Status: Current Every Day Smoker Frequency of alcohol use: Heavy Drug Abuse: None Family History: CAD, DM, Hyperlipidemia, Hypertension, Malignancy - Past Medical History Cardiac Medical History: Reports: Hx Heart Attack, Hx Hypercholesterolemia, Hx Hypertension Pulmonary Medical History: Reports: Hx Asthma, Hx Bronchitis, Hx COPD, Hx Pneumonia Neurological Medical History: Reports: Hx Cerebrovascular Accident Endocrine Medical History: Reports: Hx Diabetes Mellitus Type 2 Renal/ Medical History: Denies: Hx Peritoneal Dialysis Musculoskeltal Medical History: Reports Hx Arthritis, Reports Hx Musculoskeletal Trauma Skin Medical History: Reports Hx Cellulitis Traumatic Medical History: Reports: Hx Fractures - Right ankle and leg Past Surgical History: Reports: Hx Appendectomy, Hx Orthopedic Surgery - orif left leg - Immunizations Immunizations up to date: Yes Hx Diphtheria, Pertussis, Tetanus Vaccination: Yes - PT UNSURE Review of Systems - Review of Systems Notes: My Normal Review Basic REVIEW OF SYSTEMS: CONSTITUTIONAL : Denies fever, chills, or sweats. Denies recent illness. EENT: Denies eye, ear, throat, or mouth pain or symptoms. Denies nasal or sinus congestion. CARDIOVASCULAR: Denies chest pain. RESPIRATORY: Difficulty breathing GASTROINTESTINAL: Denies abdominal pain. Denies nausea, vomiting, or diarrhea. GENITOURINARY: Denies difficulty urinating, painful urination, burning, frequency, or blood in urine. MUSCULOSKELETAL: Denies neck or back pain or joint pain or swelling. SKIN: Denies rash or skin lesions. NEUROLOGICAL: Denies altered mental status or loss of consciousness. Denies headache. Denies weakness or paralysis or loss of use of either side. Denies problems with gait or speech. Denies sensory or motor loss. ALL OTHER SYSTEMS REVIEWED AND NEGATIVE. Physical Exam - Vital signs Vitals: Resp Pulse Ox 20 99 04/18/17 00:57 04/18/17 00:57 - Notes Notes: General Appearance: Well nourished, alert, cooperative, no acute distress, no obvious discomfort. Well-appearing without any physical signs of shortness of breath. Can smell alcohol on patient's breath. Vitals: reviewed, See vital signs table. Head: no swelling or tenderness to the head Eyes: PERRL, EOMI, Conjuctiva clear Mouth: No decreasd moisture Neck: Supple, no neck tenderness, No thyromegaly Lungs: No wheezing, No rales, No rhonci, No accessory muscle use, good air exchange bilaterally. Heart: Normal rate, Regular rythm, No murmur, no rub Abdomen: Normal BS, soft, No rigidity, No abdominal tenderness, No guarding, no rebound, no abdominal masses, no organomegaly Extremities: strength 5/5 in all extremities, good pulses in all extremities, no swelling or tenderness in the extremities, no edema. Skin: warm, dry, appropriate color, no rash Neuro: speech clear, oriented x 3, normal affect, responds appropriately to questions. We will nerves II through XII are intact. Patient moves all extremities without difficulty. No tremor. Course - Re-evaluation Re-evalutation: 04/18/17 02:24 Patient's lung burns continue remain clear. Continue to look well. Continues to show no signs of distress. I did talk to him at length about his alcohol intake as well as smoking. I informed him that as long as he continues to smoke and drink alcohol that he will continue to most likely feel weaker than normal short of breath. Patient says he goes to return to [facility]. He says not very compliant with her follow-up. Says that he does not have any family in the area ever since his back in January. He says that he no longer drinks every day however I do not think this is true being that recently has been seen here a few times for severe alcohol intoxication. Also he currently smells of alcohol. I did stand him try to walk him. He did get dizzy upon first standing up. He is talking well without swelling is worse. I will give him some IV fluids. Will give some thiamine. I will then reassess to make sure that he is clinically sober and able to go home. I did ask him about following up with Alcoholics Anonymous and all other support groups. Patient currently says is not interested in these groups. 04/18/17 05:59 Patient is clinically sober and looks well. His oxygen saturations have been 98 -100% on room air the entire time is been here. He does not have chest pain. Clinically looks very well and has no distress his lung burns are clear. I explained to him that if he continues to smoke and drink alcohol he most likely will recurrently feel short of breath. I do not feel he needs any further cardiac workup. He has had a recent negative cardiac stress test and cardiac workup by [facility]. He also has no chest pain. I will help him by giving him a cab ride home. I did talk to him earlier about alcoholic rehab resources. Patient says that he feels that he is able to cut back on alcohol intake on his own. He says he will try to quit smoking. He says he is followed [facility] to follow-up with them. Encouraged to return to ER immediately if he has chest pain, worsening difficulty breathing, fevers, or if he feels unwell. Informed him that he needs to eat normal foods and stay hydrated with nonalcoholic and non- caffeinated beverages. Patient agrees with plan will be discharged home. - Vital Signs Vital signs: Temp Pulse Resp BP Pulse Ox 98.4 F 19 138/72 H 98 04/18/17 00:58 04/18/17 04:01 04/18/17 04:01 04/18/17 04:01 - Laboratory Result Diagrams: 04/18/17 00:55 04/18/17 00:55 Laboratory results interpreted by me: 04/18/17 04/18/17 00:55 00:55 WBC 3.1 L RBC 4.18 L MCV 100 H BUN 5 L - EKG Interpretation by Me Additional EKG results interpreted by me: 04/18/17 01:13 EKG is reviewed and interpreted by me. EKG shows sinus rhythm with rate of 80 bpm. He does have some concave up this ST segment elevation mainly in the anterior leads. He also has LVH. These changes most likely relation to the LVH. There is no reciprocal ST segment depressions. VT interval, QRS duration , QTc intervals are within normal range. The LVH findings are consistent with his old EKG from March 25, 2017. 04/18/17 01:15 Discharge - Discharge Clinical Impression: Alcohol abuse, Tobacco dependence Dyspnea Qualifiers: Dyspnea type: unspecified Qualified Code(s): R06.00 - Dyspnea, unspecified Condition: Good Disposition: HOME, SELF-CARE Additional Instructions: Please try to continue to cut back on your alcohol intake and please stop smoking. If you continue to smoke and drink alcohol you will continue to feel short of breath. Please return to the ER if you have chest pain, feel depressed or suicidal, or feel that you are having alcohol withdrawl. Please follow up with your doctor in 1-2 days.
[2017-04-18 01:12] LABS: ABSOLUTE EOSINOPHILS # (AUTO) 0.1 10^3/uL (0.0-0.6); ABSOLUTE LYMPHOCYTES (AUTO) 0.9 10^3/uL (0.5-4.7); ABSOLUTE MONOCYTES (AUTO) 0.3 10^3/uL (0.1-1.4); ABSOLUTE NEUT (AUTO) 1.8 10^3/uL (1.7-8.2); BASOPHILS % (AUTO) 0.6 % (0-2); EOSINOPHILS % (AUTO) 2.6 % (0-6); HEMATOCRIT 41.7 % (37.9-51.0); LYMPHOCYTES % (AUTO) 28.6 % (13-45); MEAN CORPUSCULAR HEMOGLOBIN 33.4 pg (27.0-33.4); MEAN CORPUSCULAR HGB CONC 33.5 g/dL (32.0-36.0); MEAN CORPUSCULAR VOLUME 100 fl (80-97); MONOCYTES % (AUTO) 11.1 % (3-13); PLATELET COUNT 183 10^3/uL (150-450); RED BLOOD COUNT 4.18 10^6/uL (4.35-5.55); RED CELL DISTRIBUTION WIDTH 13.8 % (11.5-14.0); SEGMENTED NEUTROPHILS % (AUTO) 57.1 % (42-78); TOTAL CELLS COUNTED % (AUTO) 100 %; WHITE BLOOD COUNT 3.1 10^3/uL (4.0-10.5)
[2017-04-18 01:24] LABS: ALANINE AMINOTRANSFERASE 24 U/L (21-72); ALBUMIN 3.8 g/dL (3.5-5.0); ALKALINE PHOSPHATASE 60 U/L (38-126); ANION GAP 7 (5-19); ASPARTATE AMINO TRANSFERASE 35 U/L (17-59); BILIRUBIN,DIRECT 0.4 mg/dL (0.0-0.4); BILIRUBIN,TOTAL 0.4 mg/dL (0.2-1.3); BLOOD UREA NITROGEN 5 mg/dL (7-20); CALCIUM 9.2 mg/dL (8.4-10.2); CARBON DIOXIDE 26 mmol/L (22-30); CHLORIDE 105 mmol/L (98-107); GLUCOSE 90 mg/dL (75-110); POTASSIUM 3.8 mmol/L (3.6-5.0); SODIUM 138.3 mmol/L (137-145); TOTAL PROTEIN 6.4 g/dL (6.3-8.2)
--- NOTE | 2017-04-18 01:44 | RADIOLOGY REPORT (SQ) ---
EXAM DESCRIPTION: CHEST SINGLE VIEW COMPLETED DATE/TIME: 04/18/2017 1:24 am REASON FOR STUDY: dyspnea COMPARISON: Chest x-ray 04/01/2017, 03/25/2017, 03/18/2017, 09/11/2016. EXAM PARAMETERS: NUMBER OF VIEWS: One view. TECHNIQUE: Single frontal radiographic view of the chest acquired. RADIATION DOSE: NA LIMITATIONS: None. FINDINGS: LUNGS AND PLEURA: No consolidation, pneumothorax or pleural effusion. MEDIASTINUM AND HILAR STRUCTURES: No masses. Contour normal. HEART AND VASCULAR STRUCTURES: Heart normal in size. Normal vasculature. BONES: No acute findings. HARDWARE: None in the chest. IMPRESSION: No acute radiographic finding in the chest. TECHNICAL DOCUMENTATION: JOB ID: [id number] [employer]- All Rights Reserved
[2017-04-18] MEDS ORDERED: RINGERS SOLUTION,LACTATED 1,000 ML IV ONE (02:22)
[2017-04-18] MEDS ORDERED: THIAMINE HCL 100 MG in NORMAL SALINE 50 ML IV ONE (02:23)
[2017-04-18] MEDS ORDERED: FOLIC ACID INJ 5 MG/1 ML 10 ML VIAL IV ONE (02:23)
[2017-04-18] MEDS ORDERED: THIAMINE HCL INJ 200 MG/2 ML VIAL ONE (02:51)
[2017-04-18 06:12] VITALS: BP 149/92
--- NOTE | 2017-04-18 07:31 | EKG REPORT ---
SEVERITY:- ABNORMAL ECG - SINUS RHYTHM ATRIAL PREMATURE COMPLEX PROBABLE LEFT VENTRICULAR HYPERTROPHY ANTERIOR ST ELEVATION, PROBABLY DUE TO LVH : Confirmed by: Fabricio Robles MD 18-Apr-2017 07:30:52
== END 2017-04-18 06:12 | disposition home or self-care (01) ==
LOC: ER 00:46
DX: F10.10 Alcohol abuse, uncomplicated (principal); R06.00 Dyspnea, unspecified; R06.02 Shortness of breath; F17.200 Nicotine dependence, unspecified, uncomplicated; E78.00 Pure hypercholesterolemia, unspecified; I10 Essential (primary) hypertension; J44.9 Chronic obstructive pulmonary disease, unspecified; E11.9 Type 2 diabetes mellitus without complications; I25.2 Old myocardial infarction
CPT/HCPCS: 93005; 99285; 96361; 96374; 96375; 36415; 85025; 80053; 84484; 71045; 93010; J3490; J3411; J7120

== ENCOUNTER 2017-05-30 10:40 | Emergency (ER) | payer SELFPAY ==
[2017-05-30] MEDS ORDERED: LORAZEPAM INJ 2 MG/1 ML VIAL IV ONE (11:07)
--- NOTE | 2017-05-30 11:07 | ER Document Report ---
ED General - General Stated Complaint: SYNCOPE Time Seen by Provider: 05/30/17 11:04 Notes: Patient brought in by EMS, very confused, wanting to leave without being evaluated, difficult to control and appears to be disoriented. 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 His work reported that he had not been to work for the past 2-3 days and then came to work this morning. Patient told someone that he had had a beer before starting his work. When EMS arrived, they found him unresponsive and not responsive to various tactile stimulation such as sternal rub. They report that his unresponsiveness lasted for perhaps 25 minutes. He was not observed to have seizure activity. Accu-Chek was 88. When the patient did awaken, he told EMS that he was not feeling well and he felt like he had been beaten up. Only past history available at this time is that the patient has been treated at our facility about a month ago for pneumonia and was transferred from here to [facility]. Someone reported that the patient is a daily drinker of alcohol. O2 sat at the scene was 100%. TRAVEL OUTSIDE OF THE [place] IN LAST 30 DAYS: No - Related Data Allergies/Adverse Reactions: No Known Allergies Allergy (Verified 04/18/17 00:54) Past Medical History - Social History Smoking Status: Unknown if Ever Smoked Family History: CAD, DM, Hyperlipidemia, Hypertension, Malignancy - Past Medical History Cardiac Medical History: Reports: Hx Heart Attack, Hx Hypercholesterolemia, Hx Hypertension Pulmonary Medical History: Reports: Hx Asthma, Hx Bronchitis, Hx COPD, Hx Pneumonia Neurological Medical History: Reports: Hx Cerebrovascular Accident Endocrine Medical History: Reports: Hx Diabetes Mellitus Type 2 Malignancy Medical History: Reports Other - Patient apparently has claimed to have cancer of the lung. Musculoskeltal Medical History: Reports Hx Arthritis, Reports Hx Musculoskeletal Trauma Skin Medical History: Reports Hx Cellulitis Traumatic Medical History: Reports: Hx Fractures - Right ankle and leg Past Surgical History: Reports: Hx Appendectomy, Hx Orthopedic Surgery - orif left leg - Immunizations Immunizations up to date: Yes Hx Diphtheria, Pertussis, Tetanus Vaccination: Yes - PT UNSURE Review of Systems - Review of Systems -: Yes ROS unobtainable due to patient's medical condition - confused and cannot follow commands or answer questions. Restrained. Physical Exam - Vital signs Vitals: Resp BP Pulse Ox 22 H 138/104 H 100 03/15/18 10:52 05/30/17 10:52 05/30/17 10:52 Interpretation: Normal. No: Hypoxic - Notes Notes: PHYSICAL EXAMINATION: GENERAL: Confused and cannot follow commands or answer questions. Vital signs were all normal. Not hypoxic. HEAD: Atraumatic, normocephalic. EYES: Pupils equal round and reactive to light, extraocular movements intact. ENT: oropharynx clear without exudates. Moist mucous membranes. NECK: Normal range of motion, supple. LUNGS: Breath sounds with a few scattered wheezes bilaterally. Good airflow bilaterally. HEART: Regular rate and rhythm without murmurs. ABDOMEN: Soft, nontender. No guarding or rebound. No masses. BACK: No tenderness throughout entire back. EXTREMITIES: Normal range of motion without pain. NEUROLOGICAL: Does not speak intelligibly and is not able to stand or walk. Normal sensory, motor, and reflex exams. Not awake, alert, and oriented x3. SKIN: Warm, dry, no rashes. Course - Re-evaluation Re-evalutation: 05/30/17 17:20 All labs essentially normal except for the patient's blood alcohol of 264. 05/30/17 17:23 Patient woke up about an hour or so ago. He wants to go home. By my calculations, patient is still quite intoxicated probably in the range of 150 alcohol level. I told him that I would let him go if he could find somebody sober who would come and pick him up. He does now have a ride of a responsible individual. - Vital Signs Vital signs: Temp Pulse Resp BP Pulse Ox 88 29 H 127/86 H 98 05/30/17 15:00 05/30/17 16:01 05/30/17 16:01 05/30/17 15:00 - Laboratory Result Diagrams: 05/30/17 10:53 05/30/17 10:53 Laboratory results interpreted by me: 05/30/17 05/30/17 10:53 10:53 WBC 3.8 L MCV 100 H BUN 5 L Direct Bilirubin 0.5 H - Diagnostic Test Radiology reviewed: Image reviewed, Reports reviewed - CT scan of the brain shows an old small lacunar infarct which is "stable". Radiology results interpreted by me: 05/30/17 17:21 Chest x-ray is normal. No acute processes. - EKG Interpretation by Me EKG shows normal: Sinus rhythm Rate: Normal Rhythm: NSR - At 85 Discharge - Discharge Clinical Impression: Alcohol intoxication, Alcohol dependence Condition: Stable Disposition: HOME, SELF-CARE Additional Instructions: ACUTE ALCOHOL INTOXICATION and ALCOHOL ABUSE: Your evaluation revealed very high levels of alcohol. You can from drinking a large amount of alcohol rapidly! Further, there's the risk of falls , traffic accidents, and fights. A high portion (about 50 percent) of the serious injuries seen in hospital emergency rooms are caused by alcohol. Alcohol overdosage is usually due to an underlying emotional or psychiatric problem. You may benefit from counselling. If "binge" drinking is an ongoing problem for you, or if you drink ANY AMOUNT of alcohol EVERY day, you most likely have a tendency to alcoholism. You should avoid alcohol totally. We can refer you for treatment. Persons with alcohol problems are often also prone to other addictions -- you should discuss any use of medications or drugs with the doctor. You should be watched at home for the next several hours by someone who has not been drinking. Get extra fluids for the next 24 hours. Call the doctor if there is repeated vomiting, increasing headache, decreasing level of alertness, or any other worsening. CHRONIC ALCOHOLISM and ALCOHOL ABUSE: Your evaluation reveals evidence of chronic alcoholism, an addiction to alcohol. The tendency to alcoholism may be inherited. Chronic use of alcohol weakens muscles, causes fatty deposits in the liver , damages the stomach, makes you more prone to infections, and can cause defects in unborn children. In the long run, brain atrophy and cirrhosis of the liver result. You are also at greater risk for certain types of cancer, such as cancer of the mouth, throat, stomach, and liver. Counselling services are available to help you. In-hospital treatment programs often help. Support groups such as Alcoholics Anonymous can be very useful in beating this addiction. Your physician can make a referral for you. As alcoholics often are prone to other addictions, you should discuss your use of any other medications with the doctor. INSTRUCTIONS FOR HOME CARE FOLLOWING DRUG OVERDOSAGE: The doctor feels it's safe for you to go home. You will need to be observed. If charcoal and a laxative was given to you, expect some loose black stools soon. Take no medications unless approved by a physician, including alcohol. If drowsy, lie on your stomach or side for sleeping to avoid aspiration if vomiting occurs. Take only liquids by mouth until there is no more nausea. FOR THE OBSERVER: Observe the patient for the next 24 hours and call or go to the hospital if any of the following are noted: prolonged or repeated vomiting, difficulty in arousing, convulsions (seizures or fits), fever, persistent cough, breathing that is too slow or too rapid, or confused or bizarre behavior. If a counselling visit has been arranged, make sure the patient attends. Call the physician or poison control if you have questions. FOLLOW-UP CARE: If you have been referred to a physician for follow-up care, call the physician s office for an appointment as you were instructed or within the next two days. If you experience worsening or a significant change in your symptoms, notify the physician immediately or return to the Emergency Department at any time for re-evaluation. Dr. Donahue has provided you with resource information for help in care with your alcohol problem.
[2017-05-30 11:17] LABS: ABSOLUTE EOSINOPHILS # (AUTO) 0.1 10^3/uL (0.0-0.6); ABSOLUTE MONOCYTES (AUTO) 0.3 10^3/uL (0.1-1.4); ABSOLUTE NEUT (AUTO) 2.3 10^3/uL (1.7-8.2); BASOPHILS % (AUTO) 0.9 % (0-2); EOSINOPHILS % (AUTO) 3.3 % (0-6); HEMATOCRIT 45.8 % (37.9-51.0); HEMOGLOBIN 15.3 g/dL (13.5-17.0); LYMPHOCYTES % (AUTO) 25.2 % (13-45); MEAN CORPUSCULAR HEMOGLOBIN 33.4 pg (27.0-33.4); MEAN CORPUSCULAR HGB CONC 33.5 g/dL (32.0-36.0); MEAN CORPUSCULAR VOLUME 100 fl (80-97); PLATELET COUNT 211 10^3/uL (150-450); RED BLOOD COUNT 4.59 10^6/uL (4.35-5.55); RED CELL DISTRIBUTION WIDTH 13.2 % (11.5-14.0); SEGMENTED NEUTROPHILS % (AUTO) 61.6 % (42-78); TOTAL CELLS COUNTED % (AUTO) 100 %; WHITE BLOOD COUNT 3.8 10^3/uL (4.0-10.5)
[2017-05-30 11:25] LABS: INTERNATIONAL RATION (INR) 0.89; PROTHROMBIN TIME 12.7 SEC (11.4-15.4)
[2017-05-30 11:40] LABS: ALANINE AMINOTRANSFERASE 23 U/L (21-72); ALBUMIN 4.1 g/dL (3.5-5.0); ALCOHOL 264 mg/dL (NONE DETECTED); ALKALINE PHOSPHATASE 55 U/L (38-126); ANION GAP 7 (5-19); ASPARTATE AMINO TRANSFERASE 49 U/L (17-59); BILIRUBIN,DIRECT 0.5 mg/dL (0.0-0.4); BILIRUBIN,TOTAL 0.8 mg/dL (0.2-1.3); BLOOD UREA NITROGEN 5 mg/dL (7-20); CALCIUM 9.4 mg/dL (8.4-10.2); CARBON DIOXIDE 29 mmol/L (22-30); CHLORIDE 102 mmol/L (98-107); GLUCOSE 89 mg/dL (75-110); POTASSIUM 4.4 mmol/L (3.6-5.0); SODIUM 137.9 mmol/L (137-145); TOTAL PROTEIN 7.1 g/dL (6.3-8.2)
--- NOTE | 2017-05-30 11:49 | RADIOLOGY REPORT (SQ) ---
EXAM DESCRIPTION: CT HEAD WITHOUT COMPLETED DATE/TIME: 05/30/2017 11:32 am REASON FOR STUDY: Altered mental status, confusion COMPARISON: 12/18/2015 TECHNIQUE: Axial images acquired through the brain without intravenous contrast. Images reviewed wi th bone, brain and subdural windows. Images stored on PACS. All CT scanners at this facility use dose modulation, iterative reconstruction, and/or weight based d osing when appropriate to reduce radiation dose to as low as reasonably achievable (ALARA). [facility]: Dose Right [facility]: CareDose [facility]: Dose Right [facility]: Teradose 4D [facility]: [employer] RADIATION DOSE: CT Rad equipment meets quality standard of care and radiation dose reduction techniq ues were employed. CTDIvol: 64.6 mGy. DLP: 1163 mGy-cm. mGy. LIMITATIONS: None. FINDINGS: VENTRICLES: Normal size and contour. CEREBRUM: No masses. No hemorrhage. No midline shift. No evidence for acute infarction. There is a small, stable lacunar infarct in the right thalamus. Normal olson/white matter differentiation. No a reas of low density in the white matter. CEREBELLUM: No masses. No hemorrhage. No alteration of density. No evidence for acute infarction. EXTRAAXIAL SPACES: No fluid collections. No masses. ORBITS AND GLOBE: No intra- or extraconal masses. Normal contour of globe without masses. CALVARIUM: No fracture. PARANASAL SINUSES: No fluid or mucosal thickening. SOFT TISSUES: No mass or hematoma. OTHER: No other significant finding. IMPRESSION: Stable small lacunar infarct in the right thalamus. There is no acute imaging finding i n the brain P EVIDENCE OF ACUTE STROKE: NO. COMMENT: Findings were discussed with the ordering physician at 1143 hours on this date. Quality ID # [id number]: Final reports with documentation of one or more dose reduction techniques (e.g., Au tomated exposure control, adjustment of the mA and/or kV according to patient size, use of iterative reconstruction technique) TECHNICAL DOCUMENTATION: JOB ID: [id number] [employer]- All Rights Reserved Reading location - IP/workstation name: [email or web address]
--- NOTE | 2017-05-30 11:50 | RADIOLOGY REPORT (SQ) ---
EXAM DESCRIPTION: CHEST SINGLE VIEW COMPLETED DATE/TIME: 05/30/2017 11:36 am REASON FOR STUDY: bed 9 sepsis protocol COMPARISON: 04/18/2017. EXAM PARAMETERS: NUMBER OF VIEWS: One view. TECHNIQUE: Single frontal radiographic view of the chest acquired. RADIATION DOSE: NA LIMITATIONS: None. FINDINGS: LUNGS AND PLEURA: No opacities, masses or pneumothorax. No pleural effusion. MEDIASTINUM AND HILAR STRUCTURES: No masses. Contour normal. HEART AND VASCULAR STRUCTURES: Heart normal in size. Normal vasculature. BONES: No acute findings. HARDWARE: None in the chest. OTHER: No other significant finding. IMPRESSION: NO ACUTE RADIOGRAPHIC FINDING IN THE CHEST. TECHNICAL DOCUMENTATION: JOB ID: [id number] [employer]- All Rights Reserved Reading location - IP/workstation name: [email or web address]-[email or web address]
[2017-05-30 13:40] LABS: APPEARANCE,URINE CLEAR; BILIRUBIN,URINE NEGATIVE (NEGATIVE); COLOR,URINE YELLOW; GLUCOSE, URINE NEGATIVE (NEGATIVE); KETONES,URINE NEGATIVE (NEGATIVE); LEUKOCYTE ESTERASE,URINE NEGATIVE (NEGATIVE); NITRITE,URINE NEGATIVE (NEGATIVE); PROTEIN,URINE NEGATIVE (NEGATIVE); URINE SPECIFIC GRAVITY 1.006; UROBILINOGEN,URINE NEGATIVE mg/dL (<2.0)
--- NOTE | 2017-05-30 13:58 | EKG REPORT ---
SEVERITY:- ABNORMAL ECG - SINUS RHYTHM PROBABLE LEFT VENTRICULAR HYPERTROPHY ANTERIOR ST ELEVATION, PROBABLY DUE TO LVH : Confirmed by: Fabricio Robles MD 30-May-2017 13:57:04
[2017-05-30 14:35] LABS: VENOUS BLOOD BASE EXCESS -1.5 mmol/L; VENOUS BLOOD HCO3 24.2 mmol/L (20-32); VENOUS BLOOD PCO2 44.6 mmHg (35-63); VENOUS BLOOD PH 7.35 (7.30-7.42)
[2017-05-30 15:15] LABS: URINE AMPHETAMINES SCREEN NEGATIVE; URINE BARBITURATES SCREEN NEGATIVE; URINE BENZODIAZEPINES SCREEN NEGATIVE; URINE COCAINE SCREEN NEGATIVE; URINE MARIJUANA (THC) SCREEN NEGATIVE; URINE METHADONE SCREEN NEGATIVE; URINE PHENCYCLIDINE SCREEN NEGATIVE
[2017-05-30 16:46] VITALS: BP 127/86
== END 2017-05-30 17:00 | disposition home or self-care (01) ==
LOC: ER 10:40
DX: F10.229 Alcohol dependence with intoxication, unspecified (principal); Y90.8 Blood alcohol level of 240 mg/100 ml or more; I10 Essential (primary) hypertension; I25.2 Old myocardial infarction; J44.9 Chronic obstructive pulmonary disease, unspecified; E11.9 Type 2 diabetes mellitus without complications; Z86.73 Personal history of transient ischemic attack (TIA), and cerebral infarction without residual deficits
CPT/HCPCS: 93005; 99285; 96374; 36415; 87040; 87086; 80307 ×2; 85025; 85610; 80053; 81001; 82803; 83605; 71045; 70450; 93010; J2060

== ENCOUNTER 2018-08-11 12:10 | Emergency (ER) | payer SELFPAY ==
--- NOTE | 2018-08-11 13:50 | ER Document Report ---
ED Fall - General Chief Complaint: Back Pain Stated Complaint: BACK PAIN Time Seen by Provider: 08/11/18 13:06 Mode of Arrival: Wheelchair Information source: Patient Notes: 57-year-old male presented to ED for pain to his back for about a month that is gotten worse. He states it comes and goes but last night he got up to go outside on the porch and the pain was so sharp that it caused him to fall landing on his left side. He now has pain to the left ribs and left flank area. Patient is alert oriented respirations regular and unlabored speaking in full sentences walks with a steady gait. TRAVEL OUTSIDE OF THE [place] IN LAST 30 DAYS: No - HPI Occurred: Other - Pain is been for the month but he fell last night causing pain to the left ribs. 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 Lives with: Alone Family History: CAD, DM, Hyperlipidemia, Hypertension, Malignancy Patient has suicidal ideation: No Patient has homicidal ideation: No - Past Medical History Cardiac Medical History: Reports: Hx Heart Attack, Hx Hypercholesterolemia, Hx Hypertension Pulmonary Medical History: Reports: Hx Asthma, Hx Bronchitis, Hx COPD, Hx Pneumonia EENT Medical History: Reports: None Neurological Medical History: Reports: Hx Cerebrovascular Accident Endocrine Medical History: Reports: Hx Diabetes Mellitus Type 2 Renal/ Medical History: Reports: None Malignancy Medical History: Reports None GI Medical History: Reports: None Musculoskeletal Medical History: Reports Hx Arthritis, Reports Hx Musculoskeletal Trauma Skin Medical History: Reports Hx Cellulitis Psychiatric Medical History: Reports: None Traumatic Medical History: Reports: Hx Fractures - Right ankle and leg Infectious Medical History: Reports: None Past Surgical History: Reports: Hx Appendectomy, Hx Orthopedic Surgery - orif left leg - Immunizations Immunizations up to date: Yes Hx Diphtheria, Pertussis, Tetanus Vaccination: Yes - PT UNSURE Review of Systems - Review of Systems Constitutional: No symptoms reported EENT: No symptoms reported Cardiovascular: No symptoms reported Respiratory: Hurts to breathe, Other - Left rib pain Gastrointestinal: No symptoms reported Genitourinary: Flank pain - Left flank pain Male Genitourinary: No symptoms reported Musculoskeletal: No symptoms reported Skin: No symptoms reported Hematologic/Lymphatic: No symptoms reported Neurological/Psychological: No symptoms reported -: Yes All other systems reviewed and negative Physical Exam - Vital signs Vitals: Temp Pulse Resp BP Pulse Ox 98.3 F 85 16 119/70 97 08/11/18 12:27 08/11/18 12:27 08/11/18 12:27 08/11/18 12:27 08/11/18 12:27 Interpretation: Normal - General General appearance: Appears well, Alert - HEENT Head: Normocephalic, Atraumatic Eyes: Normal Pupils: PERRL - Respiratory Respiratory status: No respiratory distress Chest status: Tender, Pain with deep breathing Breath sounds: Normal Chest palpation: Normal - Cardiovascular Rhythm: Regular Heart sounds: Normal auscultation Murmur: No - Abdominal Inspection: Normal Distension: No distension Bowel sounds: Normal Tenderness: Nontender Organomegaly: No organomegaly - Back Back: Normal, Nontender - Extremities General upper extremity: Normal inspection, Nontender, Normal color, Normal ROM, Normal temperature General lower extremity: Normal inspection, Nontender, Normal color, Normal ROM, Normal temperature, Normal weight bearing. No: Maria A's sign - Neurological Neuro grossly intact: Yes Cognition: Normal Orientation: AAOx4 Orma Coma Scale Eye Opening: Spontaneous Orma Coma Scale Verbal: Oriented Orma Coma Scale Motor: Obeys Commands Lesvia Coma Scale Total: 15 Speech: Normal Motor strength normal: LUE, RUE, LLE, RLE Sensory: Normal - Psychological Associated symptoms: Normal affect, Normal mood - Skin Skin Temperature: Warm Skin Moisture: Dry Skin Color: Normal Course - Re-evaluation Re-evalutation: 08/11/18 19:17 Labs and radiologic test discussed with patient and written report given to patient to follow-up with primary care doctor. Patient was discharged home and instructed to please stay away from the cocaine and cigarettes. Patient was instructed on reducing his alcohol intake. Patient was discharged home after verbalized understanding and agreement with treatment plan. - Vital Signs Vital signs: Temp Pulse Resp BP Pulse Ox 98.3 F 60 18 142/80 H 100 08/11/18 12:27 08/11/18 14:49 08/11/18 14:49 08/11/18 14:49 08/11/18 14:49 - Laboratory Laboratory results interpreted by me: 08/11/18 13:40 Urine Urobilinogen 2.0 H - Diagnostic Test Radiology reviewed: Image reviewed, Reports reviewed Discharge - Discharge Clinical Impression: Left flank pain, Rib pain on left side Fall Qualifiers: Encounter type: initial encounter Qualified Code(s): W19.XXXA - Unspecified fall, initial encounter Condition: Stable Disposition: HOME, SELF-CARE Instructions: Family Physicians / Practices Additional Instructions: Flank Pain We weren't able to prove an exact cause for your flank pain. Pain in the flank can be caused by a muscle strain or spasm. Sometimes a kidney stone causes pain, but can't be found on our tests. Infection in the kidney should be evident on a urine test. Early shingles can occasionally cause flank pain, without the rash that proves the diagnosis. On rare occasions, disease of the pancreas, aorta, spleen, or colon can create pain in the flank. At this time, there's no evidence of a dangerous condition, and it seems safe for you to be at home. If the pain goes away and does not come back, no further testing will be needed. If pain persists, or becomes more severe, we may need to repeat some tests or order additional new testing. Blood in the urine, urgency to urinate frequently, and pain that radiates to the groin can indicate a kidney stone. Fever may mean that the pain is due to infection, either of the kidney or the colon (diverticulitis). If your pain is early shingles, you should develop an eruption of blisters in the painful area within a few days. Call the doctor or return if you have pain that is spreading or becoming more severe, pain that does not resolve with time, fever, or any other new symptoms. Rib Contusion You have been diagnosed as having bruised ribs. It will usually take a few weeks for these injured ribs to heal. You should cough or take a deep breath at least every hour or two to prev ent lung complications. You should not engage in any strenuous physical activity until released by your physician. The usual rule is "if it hurts, don't do it." Return if you develop any of the following: (1) Fever or chills. (2) Persistent cough, coughing up blood, or shortness of breath. (3) Increasing pain. (4) Weakness, lightheadedness, or fainting. Ibuprofen Ibuprofen is an excellent, safe drug for pain control. In addition, it has potent antiinflammatory effects which are beneficial, especially in the treatment of injuries, arthritis, or tendonitis. It's best to take ibuprofen with food. Persons with ulcer disease or allergy to aspirin should notify their physician of this before taking ibuprofen. Take the medication exactly as prescribed. Don't take additional doses unless instructed to do so by your doctor. If you develop wheezing, shortness of breath, hives, faintness, stomach pain, vomiting, or dark black stools, return for re-evaluation at once. FOLLOW-UP CARE: If you have been referred to a physician for follow-up care, call the physicians office for an appointment as you were instructed or within the next two days. If you experience worsening or a significant change in your symptoms, notify the physician immediately or return to the Emergency Department at any time for re-evaluation. Forms: Smoking Cessation Education, Return to Work
[2018-08-11 13:58] LABS: APPEARANCE,URINE CLEAR; BILIRUBIN,URINE NEGATIVE (NEGATIVE); COLOR,URINE YELLOW; GLUCOSE, URINE NEGATIVE (NEGATIVE); KETONES,URINE NEGATIVE (NEGATIVE); LEUKOCYTE ESTERASE,URINE NEGATIVE (NEGATIVE); NITRITE,URINE NEGATIVE (NEGATIVE); PROTEIN,URINE NEGATIVE (NEGATIVE); URINE SPECIFIC GRAVITY 1.019
--- NOTE | 2018-08-11 14:06 | RADIOLOGY REPORT (SQ) ---
EXAM DESCRIPTION: RIBS LEFT W/PA CHEST COMPLETED DATE/TIME: 08/11/2018 1:57 pm REASON FOR STUDY: pain left ribs and flank COMPARISON: None. TECHNIQUE: Frontal view of the chest and additional views of the left ribs acquired. NUMBER OF VIEWS: Four views. PA chest. Three-view rib detail. LIMITATIONS: None. FINDINGS: FRONTAL CXR: No acute infiltrates or effusions. Minimal left apical pleural thickening. RIBS: No displaced rib fractures. No lytic or blastic bony lesions. OTHER: No other significant finding. IMPRESSION: NO PNEUMOTHORAX. NO DISPLACED RIB FRACTURES. TECHNICAL DOCUMENTATION: JOB ID: [id number] [employer]- All Rights Reserved Reading location - IP/workstation name: [email or web address]
[2018-08-11 14:14] LABS: URINE AMPHETAMINES SCREEN NEGATIVE; URINE BARBITURATES SCREEN NEGATIVE; URINE BENZODIAZEPINES SCREEN NEGATIVE; URINE COCAINE SCREEN UNCONFIRMED POSITIVE; URINE MARIJUANA (THC) SCREEN NEGATIVE; URINE METHADONE SCREEN NEGATIVE; URINE PHENCYCLIDINE SCREEN NEGATIVE
--- NOTE | 2018-08-11 14:24 | RADIOLOGY REPORT (SQ) ---
EXAM DESCRIPTION: CT ABD/PELVIS NO ORAL OR IV COMPLETED DATE/TIME: 08/11/2018 2:07 pm REASON FOR STUDY: pain left ribs and flank COMPARISON: None. TECHNIQUE: CT scan of the abdomen and pelvis performed without intravenous or oral contrast. Images reviewed with lung, soft tissue, and bone windows. Reconstructed coronal and sagittal MPR images revi ewed. All images stored on PACS. All CT scanners at this facility use dose modulation, iterative reconstruction, and/or weight based d osing when appropriate to reduce radiation dose to as low as reasonably achievable (ALARA). [facility]: Dose Right [facility]: CareDose [facility]: Dose Right [facility]: Teradose 4D [facility]: [employer] RADIATION DOSE: CT Rad equipment meets quality standard of care and radiation dose reduction techniq ues were employed. CTDIvol: 4.8 mGy. DLP: 250 mGy-cm.mGy. LIMITATIONS: None. FINDINGS: LOWER CHEST: No significant findings. No nodules or infiltrates. NON-CONTRASTED LIVER, SPLEEN, ADRENALS: Evaluation limited by lack of IV contrast. No identified sign ificant masses. PANCREAS: No masses. No peripancreatic inflammatory changes. GALLBLADDER: No identified stones by CT criteria. No inflammatory changes to suggest cholecystitis. RIGHT KIDNEY AND URETER: No suspicious masses. Assessment limited by lack of IV contrast. No signif icant calcifications. No hydronephrosis or hydroureter. LEFT KIDNEY AND URETER: No suspicious masses. Assessment limited by lack of IV contrast. No signifi cant calcifications. No hydronephrosis or hydroureter. AORTA AND RETROPERITONEUM: No aneurysm. No retroperitoneal masses or adenopathy. Calcific atheroscle rosis. BOWEL AND PERITONEAL CAVITY: No obvious masses or inflammatory changes. No free fluid. APPENDIX: Normal. PELVIS, BLADDER, AND ABDOMINAL WALL:No abnormal masses. No free fluid. Bladder normal. BONES: No significant findings. OTHER: No other significant finding. IMPRESSION: No noncontrast CT findings to explain left flank or rib pain. No evidence of urinary tr act calculus or hydronephrosis. COMMENT: Quality ID # [id number]: Final reports with documentation of one or more dose reduction techniques (e.g., Automated exposure control, adjustment of the mA and/or kV according to patient size, use of iterative reconstruction technique) TECHNICAL DOCUMENTATION: JOB ID: [id number] All Rights Reserved Reading location - IP/workstation name: [email or web address]
[2018-08-11] MEDS ORDERED: IBUPROFEN 600 MG TABLET PO ONE (14:41)
[2018-08-11 14:51] VITALS: BP 142/80
== END 2018-08-11 14:51 | disposition home or self-care (01) ==
LOC: ER 12:10
DX: R07.81 Pleurodynia (principal); R10.9 Unspecified abdominal pain; W19.XXXA Unspecified fall, initial encounter; Y93.89 Activity, other specified; Y92.009 Unspecified place in unspecified non-institutional (private) residence as the place of occurrence of the external cause; M54.9 Dorsalgia, unspecified; F17.210 Nicotine dependence, cigarettes, uncomplicated; Z71.6 Tobacco abuse counseling; I10 Essential (primary) hypertension; J44.9 Chronic obstructive pulmonary disease, unspecified; E11.9 Type 2 diabetes mellitus without complications
CPT/HCPCS: 74176; 80307; 81001; 99284; 99406

== ENCOUNTER 2018-12-22 23:18 | Emergency (ER) | payer SELFPAY ==
[2018-12-22] MEDS ORDERED: ASPIRIN 81 MG TABLET, CHEWABLE PO ONE (23:21)
[2018-12-23 00:08] LABS: HEMATOCRIT 42.3 % (37.9-51.0); HEMOGLOBIN 13.8 g/dL (13.5-17.0); MEAN CORPUSCULAR HEMOGLOBIN 32.6 pg (27.0-33.4); MEAN CORPUSCULAR HGB CONC 32.7 g/dL (32.0-36.0); MEAN CORPUSCULAR VOLUME 100 fl (80-97); PLATELET COUNT 155 10^3/uL (150-450); RED BLOOD COUNT 4.25 10^6/uL (4.35-5.55); RED CELL DISTRIBUTION WIDTH 14.3 % (11.5-14.0); WHITE BLOOD COUNT 5.5 10^3/uL (4.0-10.5)
[2018-12-23] MEDS ORDERED: ONDANSETRON HCL INJ/PF 4 MG/2 ML SDV IV ONE (00:21)
[2018-12-23] MEDS ORDERED: FAMOTIDINE 20 MG TABLET PO ONE (00:21)
[2018-12-23 00:23] LABS: ABSOLUTE LYMPHOCYTES# (MANUAL) 0.9 10^3/uL (0.5-4.7); ABSOLUTE MONOCYTES # (MANUAL) 0.3 10^3/uL (0.1-1.4); BAND NEUTROPHILS % (MANUAL) 1 % (3-5); BASOPHILS % (MANUAL) 0 % (0-2); EOSINOPHILS % (MANUAL) 1 % (0-6); LYMPHOCYTES % (MANUAL) 16 % (13-45); MONOCYTES % (MANUAL) 6 % (3-13); SEGMENTED NEUTROPHILS % (MAN) 76 % (42-78); TOTAL CELLS COUNTED 100
[2018-12-23 00:24] LABS: ANISOCYTOSIS SLIGHT; PLATELET COMMENT ADEQUATE
--- NOTE | 2018-12-23 00:24 | ER Document Report ---
ED General - General Chief Complaint: Chest Pain > 30 Stated Complaint: CHEST PAIN Time Seen by Provider: 12/23/18 00:15 Notes: Patient is a 58-year-old male that comes emergency department for chief complaint of pain in the left side of his chest, this has been present for approximately 2 days or so now. He states it hurts to move, hurts to take a deep breath. Reports frequent cough, denies fever or shortness of breath. He denies trauma. He does admit to both smoking and very frequent alcohol, he states he has had "a few beers tonight". He states he was told in the past that he had "2 little heart attacks", denies cardiac catheterization, stent, CABG. He does state he is diagnosed with COPD. He denies fevers. He denies any other complaints. TRAVEL OUTSIDE OF THE [place] IN LAST 30 DAYS: No - Related Data Allergies/Adverse Reactions: No Known Allergies Allergy (Verified 08/11/18 12:14) Past Medical History - General Information source: Patient - Social History Smoking Status: Current Every Day Smoker Frequency of alcohol use: most days some Drug Abuse: None Lives with: Family Family History: CAD, DM, Hyperlipidemia, Hypertension, Malignancy Patient has suicidal ideation: No Patient has homicidal ideation: No - Past Medical History Cardiac Medical History: Reports: Hx Heart Attack, Hx Hypercholesterolemia, Hx Hypertension Pulmonary Medical History: Reports: Hx Asthma, Hx Bronchitis, Hx COPD, Hx Pneumonia Neurological Medical History: Reports: Hx Cerebrovascular Accident Endocrine Medical History: Reports: Hx Diabetes Mellitus Type 2 Renal/ Medical History: Denies: Hx Peritoneal Dialysis Musculoskeletal Medical History: Reports Hx Arthritis, Reports Hx Musculoskeletal Trauma Skin Medical History: Reports Hx Cellulitis Traumatic Medical History: Reports: Hx Fractures - Right ankle and leg Past Surgical History: Reports: Hx Appendectomy, Hx Orthopedic Surgery - orif left leg - Immunizations Immunizations up to date: Yes Hx Diphtheria, Pertussis, Tetanus Vaccination: Yes - PT UNSURE Review of Systems - Review of Systems Constitutional: No symptoms reported EENT: No symptoms reported Cardiovascular: See HPI Respiratory: See HPI Gastrointestinal: No symptoms reported Genitourinary: No symptoms reported Male Genitourinary: No symptoms reported Musculoskeletal: See HPI Skin: No symptoms reported Hematologic/Lymphatic: No symptoms reported Neurological/Psychological: No symptoms reported Physical Exam - Vital signs Vitals: Temp Pulse Resp BP Pulse Ox 97.7 F 63 18 130/83 H 98 12/22/18 23:20 12/22/18 23:20 12/22/18 23:20 12/22/18 23:20 12/22/18 23:20 - Notes Notes: GENERAL: Alert, interacts well. Does not appear to be intoxicated HEAD: Normocephalic, atraumatic. EYES: Pupils equal, round, and reactive to light. Extraocular movements intact. ENT: Oral mucosa moist, tongue midline. Oropharynx unremarkable. Airway patent. NECK: Full range of motion. Supple. Trachea midline. LUNGS: Decreased breath sounds, frequent congested cough, few scattered coarse breath sounds but no overt wheezing or rhonchi. No respiratory distress. Minimally tender over the anterior chest wall on the left side. No erythema or swelling, no crepitus. HEART: Regular rate and rhythm. No murmur ABDOMEN: Soft, non-tender. Non-distended. Bowel sounds present in all 4 quadrants. GENITOURINARY: Deferred EXTREMITIES: Moves all 4 extremities spontaneously. No edema, normal radial and dorsalis pedis pulses bilaterally. No cyanosis. BACK: no cervical, thoracic, lumbar midline tenderness. No saddle anesthesia, normal distal neurovascular exam. Moves all extremities in full range of motion. NEUROLOGICAL: Alert and oriented x3. Normal speech. Cranial nerves II through XII grossly intact. PSYCH: Normal affect, normal mood. SKIN: Warm, dry, normal turgor. No rashes or lesions noted. Course - Re-evaluation Re-evalutation: Patient with congested cough on exam, few coarse breath sounds, mild tenderness over the left chest wall, however he is sober, no slurring of his words, steady, alert. He is well-appearing. He is in no respiratory distress. He is not hypoxic, febrile, hypotensive, or tachycardic. EKG nonspecific with no concerning ischemic findings, CBC nonspecific, chemistry nonspecific, 2 sets of negative troponins obtained. Chest x-ray appears to show a left lower pneumonia which is in the locations of patient's discomfort. Based on patient's persistent cough, location of pain, and work-up I feel this most likely that he has pneumonia. I did discuss with patient. Patient will be started on Rocephin and doxycycline here, doxycycline at home, and he will follow-up closely with primary care. I discussed return precautions in detail. Patient states understanding and agreement. Stable time of discharge. - Vital Signs Vital signs: Temp Pulse Resp BP Pulse Ox 98.9 F 53 L 15 123/80 96 12/23/18 06:18 12/23/18 06:18 12/23/18 06:18 12/23/18 06:18 12/23/18 06:18 - Laboratory Result Diagrams: 12/22/18 23:50 12/23/18 00:40 Laboratory results interpreted by me: 12/22/18 12/23/18 23:50 00:40 RBC 4.25 L MCV 100 H RDW 14.3 H Band Neutrophils % 1 L Creatine Kinase 295 H - EKG Interpretation by Me Additional EKG results interpreted by me: EKG shows sinus rhythm at a rate of 66, QTC of 428, normal axis, no T wave inversions or ST segment changes in consecutive leads. Discharge - Discharge Clinical Impression: Left-sided chest pain Pneumonia Qualifiers: Pneumonia type: due to unspecified organism Laterality: left Lung location: lower lobe of lung Qualified Code(s): J18.1 - Lobar pneumonia, unspecified organism Condition: Stable Disposition: HOME, SELF-CARE Additional Instructions: Your work-up indicates what appears to be pneumonia on the left side. This could be the source of your symptoms. I recommend you take the doxycycline antibiotic as prescribed to completion. Follow-up close with primary care. Return if you worsen including difficulty breathing, fever, passing out, severe worsening pain, or any other concerning symptoms. Prescriptions: Doxycycline Hyclate 100 mg PO BID #14 capsule Forms: Return to Work, Smoking Cessation Education
--- NOTE | 2018-12-23 01:14 | RADIOLOGY REPORT (SQ) ---
EXAM DESCRIPTION: XR CHEST 2 VIEWS COMPLETED DATE/TME: 12/23/2018 00:22 CLINICAL HISTORY: 58 years, Male, left sided chest pain COMPARISON: X-ray chest 08/11/2018 NUMBER OF VIEWS: TECHNIQUE: LIMITATIONS: None. FINDINGS: There may be patchy infiltrate/atelectasis at the left lung base, raising the possibility of pneumonia. This is a new finding, as compared with the prior study. The lungs are otherwise clear. No evidence of pneumothorax or pleural effusion. The heart and mediastinum are unremarkable. Pulmonary vascularity appears normal. IMPRESSION: Possible left basilar pneumonia. copyright 2010 [employer]- All Rights Reserved
[2018-12-23 03:08] LABS: ALKALINE PHOSPHATASE 60 U/L (38-126); ANION GAP 9 (5-19); ASPARTATE AMINO TRANSFERASE 28 U/L (17-59); BILIRUBIN,DIRECT 0.2 mg/dL (0.0-0.4); BILIRUBIN,TOTAL 0.9 mg/dL (0.2-1.3); BLOOD UREA NITROGEN 11 mg/dL (7-20); CARBON DIOXIDE 26 mmol/L (22-30); CHLORIDE 105 mmol/L (98-107); CREATINE KINASE 295 U/L (55-170); GLUCOSE 87 mg/dL (75-110); POTASSIUM 4.3 mmol/L (3.6-5.0); TOTAL PROTEIN 6.7 g/dL (6.3-8.2)
[2018-12-23 03:20] LABS: CREATINE KINASE MB 1.46 ng/mL (<4.55)
[2018-12-23 03:30] LABS: TROPONIN I < 0.012 ng/mL
[2018-12-23] MEDS ORDERED: CEFTRIAXONE 1 GM/D5W RTU 1 GM/50 ML RTUPB IV ONE (04:29)
[2018-12-23] MEDS ORDERED: DOXYCYCLINE HYCLATE 100 MG TABLET PO ONE (04:29)
[2018-12-23 06:20] VITALS: BP 123/80
--- NOTE | 2018-12-23 07:54 | EKG REPORT ---
SEVERITY:- ABNORMAL ECG - SINUS RHYTHM PROBABLE LEFT VENTRICULAR HYPERTROPHY NONSPECIFIC LATERAL ST-T CHANGES : Confirmed by: Fabricio Robles MD 23-Dec-2018 07:54:10
== END 2018-12-23 06:20 | disposition home or self-care (01) ==
LOC: ER 23:18
DX: J18.1 Lobar pneumonia, unspecified organism (principal); R07.9 Chest pain, unspecified; R05 Cough; F17.200 Nicotine dependence, unspecified, uncomplicated; F10.10 Alcohol abuse, uncomplicated; I25.2 Old myocardial infarction; J44.9 Chronic obstructive pulmonary disease, unspecified; I10 Essential (primary) hypertension; E11.9 Type 2 diabetes mellitus without complications
CPT/HCPCS: 93005; 99285; 96375; 96365; 36415; 82553; 82550; 83690; 85025; 80053; 84484; 71046; 93010; J2405; J0696

== ENCOUNTER 2019-03-16 07:52 | Observation (INO) | payer SELFPAY ==
[2019-03-16 08:28] LABS: ABSOLUTE EOSINOPHILS # (AUTO) 0.1 10^3/uL (0.0-0.6); ABSOLUTE LYMPHOCYTES (AUTO) 1.3 10^3/uL (0.5-4.7); ABSOLUTE MONOCYTES (AUTO) 0.2 10^3/uL (0.1-1.4); ABSOLUTE NEUT (AUTO) 3.3 10^3/uL (1.7-8.2); BASOPHILS % (AUTO) 0.8 % (0-2); EOSINOPHILS % (AUTO) 2.4 % (0-6); HEMOGLOBIN 14.4 g/dL (13.5-17.0); LYMPHOCYTES % (AUTO) 26.3 % (13-45); MEAN CORPUSCULAR HEMOGLOBIN 32.9 pg (27.0-33.4); MEAN CORPUSCULAR HGB CONC 33.5 g/dL (32.0-36.0); MEAN CORPUSCULAR VOLUME 98 fl (80-97); MONOCYTES % (AUTO) 4.9 % (3-13); PLATELET COUNT 209 10^3/uL (150-450); RED BLOOD COUNT 4.37 10^6/uL (4.35-5.55); RED CELL DISTRIBUTION WIDTH 12.9 % (11.5-14.0); SEGMENTED NEUTROPHILS % (AUTO) 65.6 % (42-78); TOTAL CELLS COUNTED % (AUTO) 100 %
[2019-03-16] MEDS ORDERED: ALBUTEROL SULFATE 0.083% NEB 2.5 MG/3 ML AMPUL NEB ONE (08:43)
--- NOTE | 2019-03-16 08:48 | ER Document Report ---
ED General - General Chief Complaint: Chest Pain Stated Complaint: CHEST PAIN Time Seen by Provider: 03/16/19 08:32 TRAVEL OUTSIDE OF THE [place] IN LAST 30 DAYS: No - HPI Notes: Patient with history of COPD was recently treated for pneumonia approximately 3 weeks ago per the patient presents with worsening cough yellow sputum production and sharp pleuritic chest pain worse with taking a deep breath and movement. He is a daily smoker. He states he has a inhaler that he uses sometimes for his COPD otherwise does not take any medications. Abdominal pain or fevers. Per nursing staff he was 83% on room air upon arrival. Placed on 2 L nasal cannula. - Related Data Allergies/Adverse Reactions: No Known Allergies Allergy (Verified 08/11/18 12:14) Past Medical History - Social History Smoking Status: Current Every Day Smoker Chew tobacco use (# tins/day): No Frequency of alcohol use: Heavy Drug Abuse: None Family History: CAD, DM, Hyperlipidemia, Hypertension, Malignancy Patient has suicidal ideation: No Patient has homicidal ideation: No - Past Medical History Cardiac Medical History: Reports: Hx Heart Attack, Hx Hypercholesterolemia, Hx Hypertension Pulmonary Medical History: Reports: Hx Asthma, Hx Bronchitis, Hx COPD, Hx Pneumonia Neurological Medical History: Reports: Hx Cerebrovascular Accident Endocrine Medical History: Reports: Hx Diabetes Mellitus Type 2 Renal/ Medical History: Denies: Hx Peritoneal Dialysis Musculoskeletal Medical History: Reports Hx Arthritis, Reports Hx Musculoskeletal Trauma Skin Medical History: Reports Hx Cellulitis Traumatic Medical History: Reports: Hx Fractures - Right ankle and leg Past Surgical History: Reports: Hx Appendectomy, Hx Orthopedic Surgery - orif left leg - Immunizations Immunizations up to date: Yes Hx Diphtheria, Pertussis, Tetanus Vaccination: Yes - PT UNSURE Review of Systems - Review of Systems Constitutional: No symptoms reported EENT: No symptoms reported Cardiovascular: See HPI Respiratory: See HPI Gastrointestinal: No symptoms reported Genitourinary: No symptoms reported Male Genitourinary: No symptoms reported Musculoskeletal: No symptoms reported Skin: No symptoms reported Hematologic/Lymphatic: No symptoms reported Neurological/Psychological: No symptoms reported Physical Exam - Vital signs Vitals: Pulse Ox 100 03/16/19 07:54 - General General appearance: Appears well, Alert - HEENT Head: Normocephalic, Atraumatic Eyes: Normal Conjunctiva: Normal Cornea: Normal Pupils: PERRL - Respiratory Respiratory status: No respiratory distress Chest status: Nontender Breath sounds: Decreased air movement Chest palpation: Normal - Cardiovascular Rhythm: Regular Heart sounds: Normal auscultation Murmur: No - Abdominal Inspection: Normal Distension: No distension - Back Back: Normal - Neurological Neuro grossly intact: Yes Cognition: Normal Orientation: AAOx4 - Psychological Associated symptoms: Normal affect Course - Re-evaluation Re-evalutation: 03/16/19 11:51 CTA negative for pulmonary emboli or with pneumonia and labs within normal limits are nonsignificant. Patient symptoms improved with nebulizer treatment. Due to initial hypoxia and tight air movement will be admitted for COPD exacerbation. - Vital Signs Vital signs: Temp Pulse Resp BP Pulse Ox 97.7 F 16 104/72 98 03/16/19 08:10 03/16/19 11:01 03/16/19 11:01 03/16/19 11:01 - Laboratory Result Diagrams: 03/16/19 08:00 03/16/19 08:00 Laboratory results interpreted by me: 03/16/19 03/16/19 03/16/19 08:00 08:00 10:37 MCV 98 H ABG pH 7.33 L Creatine Kinase 185 H Discharge - Discharge Clinical Impression: COPD exacerbation Condition: Good Disposition: ADMITTED INPATIENT Admitting Provider: Chela (Hospitalist) Unit Admitted: Telemetry
[2019-03-16 08:51] LABS: ALBUMIN 4.2 g/dL (3.5-5.0); ALKALINE PHOSPHATASE 64 U/L (38-126); ANION GAP 12 (5-19); ASPARTATE AMINO TRANSFERASE 31 U/L (17-59); BILIRUBIN,DIRECT 0.2 mg/dL (0.0-0.4); BILIRUBIN,TOTAL 0.5 mg/dL (0.2-1.3); BLOOD UREA NITROGEN 7 mg/dL (7-20); CALCIUM 9.2 mg/dL (8.4-10.2); CARBON DIOXIDE 23 mmol/L (22-30); CHLORIDE 107 mmol/L (98-107); CREATINE KINASE 185 U/L (55-170); GLUCOSE 109 mg/dL (75-110); POTASSIUM 4.2 mmol/L (3.6-5.0); TOTAL PROTEIN 7.1 g/dL (6.3-8.2)
[2019-03-16 09:02] LABS: CREATINE KINASE MB 1.51 ng/mL (<4.55)
[2019-03-16] MEDS: IPRATROPIUM BROMIDE 0.02% NEB 0.5 MG/2.5 ML AMPUL NEB PRN ×2 (09:03→12:19)
[2019-03-16 09:11] LABS: TROPONIN I < 0.012 ng/mL
--- NOTE | 2019-03-16 10:01 | RADIOLOGY REPORT (SQ) ---
EXAM DESCRIPTION: CTA CHEST COMPLETED DATE/TIME: 03/16/2019 9:38 am REASON FOR STUDY: chest pain, sharp, hypoxia, eval for PE COMPARISON: 11/06/2010. TECHNIQUE: CT scan of the chest performed using helical scanning technique with dynamic intravenous contrast injection. Images reviewed with lung, soft tissue and bone windows. Reconstructed coronal and sagittal MPR images reviewed. Additional 3 dimensional post-processing performed to develop Maximal Intensity Projection images (AL P). All images stored on PACS. All CT scanners at this facility use dose modulation, iterative reconstruction, and/or weight based d osing when appropriate to reduce radiation dose to as low as reasonably achievable (ALARA). [facility]: Dose Right [facility]: CareDose [facility]: Dose Right [facility]: Teradose 4D [facility]: Linear Labs CONTRAST TYPE AND DOSE: contrast/concentration: Isovue 350.00 mg/ml; Total Contrast Delivered: 56.0 ml; Total Saline Delivered: 70.0 ml Contrast bolus adequate for pulmonary arteries and aorta. RENAL FUNCTION: BUN 7 creatinine 0.87. RADIATION DOSE: CT Rad equipment meets quality standard of care and radiation dose reduction techniq ues were employed. CTDIvol: 14.3 - 16.5 mGy. DLP: 605 mGy-cm. . LIMITATIONS: None. FINDINGS: LUNGS AND PLEURA: Apical bullae and apical scarring. Scarring in the right middle lobe. Faint ground-glass sub solid nodules. 4.7 mm nodule in the right upper lobe (axial series 4, image 2 7) and 5.3 mm nodule in the lateral right upper lobe (axial series 4, image 46). No masses, infiltra yung, or pneumothorax. No pleural effusions or pleural calcifications. AORTA AND GREAT VESSELS: No aneurysm. No dissection. HEART: No pericardial effusion. No significant coronary artery calcifications. PULMONARY ARTERIES: No emboli visualized in the main pulmonary arteries or the segmental branches. HILAR AND MEDIASTINAL STRUCTURES: No identified masses or abnormal nodes. HARDWARE: None in the chest. UPPER ABDOMEN: No significant findings. Limited exam. THYROID AND OTHER SOFT TISSUES: No masses. No adenopathy. BONES: No acute or significant finding. 3D MIPS: Confirm above findings. OTHER: No other significant finding. IMPRESSION: 1. NORMAL CTA OF THE CHEST. NO PULMONARY EMBOLI. 2. MILD SCARRING. SMALL NONSPECIFIC SUB SOLID GROUND-GLASS NODULES MEASURING 4.7 MM AND 5.3 MM. FOL LOW-UP CLINICALLY INDICATED. NO OTHER SIGNIFICANT FINDINGS. COMMENT: Fleischner Criteria for Ground Glass Nodules: <6 mm subsolid multiple nodules: CT 3-6 mo, then consider CT at 2 and 4 yr. Quality ID # [id number]: Final reports with documentation of one or more dose reduction techniques (e.g., Au tomated exposure control, adjustment of the mA and/or kV according to patient size, use of iterative reconstruction technique) TECHNICAL DOCUMENTATION: JOB ID: [id number] [employer]- All Rights Reserved Reading location - IP/workstation name: [email or web address]-
[2019-03-16 10:59] LABS: ARTERIAL BLOOD BASE EXCESS -3.6 mmol/L; ARTERIAL BLOOD H2CO3 1.29 mmol/L (1.05-1.35); ARTERIAL BLOOD HCO3 22.2 mmol/L (20-24); ARTERIAL BLOOD O2 SATURATION 96.6 % (94-98); ARTERIAL BLOOD PCO2 42.9 mmHg (35-45); ARTERIAL BLOOD PH 7.33 (7.35-7.45); ARTERIAL BLOOD PO2 92.5 mmHg (80-100); ARTERIAL BLOOD TOTAL CO2 23.5 mmol/L (23-27)
[2019-03-16 11:00] LABS: ARTERIAL BLOOD FIO2 ROOM AIR
[2019-03-16] MEDS ORDERED: PREDNISONE 20 MG TABLET PO ONE (11:50)
[2019-03-16] MEDS ORDERED: DOXYCYCLINE HYCLATE INJ 100 MG VIAL IV ONE (11:50)
--- NOTE | 2019-03-16 13:23 | EKG REPORT ---
SEVERITY:- ABNORMAL ECG - SINUS RHYTHM ATRIAL PREMATURE COMPLEX PROBABLE LEFT VENTRICULAR HYPERTROPHY : Confirmed by: Fabricio Robles MD 16-Mar-2019 13:23:19
[2019-03-16] MEDS ORDERED: ACETAMINOPHEN 325 MG TABLET PO PRN (18:22)
[2019-03-16] MEDS ORDERED: PROMETHAZINE HCL INJ 25 MG/1 ML VIAL IV PRN (18:22)
[2019-03-16] MEDS ORDERED: NORMAL SALINE 1000 ML 1,000 ML IV PRN (18:22)
[2019-03-16] MEDS ORDERED: MAGNESIUM HYDROXIDE SUSP 30 ML UDCUP PO PRN (18:22)
--- NOTE | 2019-03-16 18:44 | PDOC H&P ---
History of Present Illness Admission Date/PCP: 03/16/19 13:29 History of Present Illness: ERYN BARLOW is a 58 year old male who comes into the hospital with a history of worsening of shortness of breath and left-sided chest wall pain. Patient was here in the emergency room on 12/22/2018 with the same symptoms. At that time patient was treated with 1 dose of IV Rocephin and sent home with a prescription for doxycycline. At that time he did appear to have a pneumonia in the left lower lobe by chest x-ray Today he comes in with almost the exact same symptoms. Today however CT angiogram of the chest shows no signs of pneumonia only, small nodules that were not there back in 2010 by comparison. Actually called the radiologist and spoke to him dated that these nodules are new since 2010. Also stated that there is no sign of pneumonia on today's CT scan of the chest. Put patient in the hospital and consult cardiology even though all of his troponins are negative, sed rate, just thinking about pericarditis. We will empirically start him on some steroids and IV Zithromax. Cultures are pending. Patient denies other chronic illnesses such as diabetes or hypertension Does smoke about 1 pack of cigarettes per day and he drinks beer on a regular basis. He says sometimes he will go we cannot drink any beer. Patient does have a history of cardiac disease over 20 years ago when he was cathed at [facility]. Though no stents and no CABG was performed Past Medical History Cardiac Medical History: Reports: Myocardial Infarction, Hyperlipidema, Hypertension Pulmonary Medical History: Reports: Asthma, Bronchitis, Chronic Obstructive Pulmonary Disease (COPD), Pneumonia Endocrine Medical History: Reports: Diabetes Mellitus Type 2 Musculoskeltal Medical History: Reports: Arthritis Past Surgical History Past Surgical History: Reports: Appendectomy, Orthopedic Surgery - orif left leg Social History Smoking Status: Current Every Day Smoker Electronic Cigarette use?: No Frequency of Alcohol Use: Occasional Hx Recreational Drug Use: No Hx Prescription Drug Abuse: No - Advance Directive Resuscitation Status: Do Not Resuscitate Family History Family History: CAD, DM, Hyperlipidemia, Hypertension, Malignancy Parental Family History Reviewed: No Children Family History Reviewed: No Sibling(s) Family History Reviewed.: No Medication/Allergy Home Medications: Aspirin [Aspir-Low] 81 mg PO DAILY 03/16/19 Allergies/Adverse Reactions: No Known Allergies Allergy (Verified 08/11/18 12:14) Review of Systems Constitutional: ABSENT: chills, fever(s), headache(s), weight gain, weight loss Cardiovascular: PRESENT: other - Chest wall pain Respiratory: PRESENT: dyspnea Neurological: ABSENT: abnormal gait, abnormal speech, confusion, dizziness, focal weakness, syncope Psychiatric: ABSENT: anxiety, depression, homidical ideation, suicidal ideation Physical Exam Vital Signs: Temp Pulse Resp BP Pulse Ox 97.7 F 18 128/83 H 96 03/16/19 08:10 03/16/19 17:01 03/16/19 17:00 03/16/19 17:01 Intake & Output 03/15/19 03/16/19 03/17/19 06:59 06:59 06:59 Weight 72.575 kg General appearance: PRESENT: mild distress Respiratory exam: PRESENT: clear to auscultation jazmine. ABSENT: rales, rhonchi, wheezes Cardiovascular exam: PRESENT: RRR, other - Patient is tender to palpate over the left anterior chest wall in the left axilla. Pain does seem to be reproducible with palpation. ABSENT: diastolic murmur, rubs, systolic murmur Neurological exam: PRESENT: alert, awake, oriented to person, oriented to place, oriented to time, oriented to situation, CN II-XII grossly intact. ABSENT: motor sensory deficit Psychiatric exam: PRESENT: appropriate affect, normal mood. ABSENT: homicidal ideation, suicidal ideation Results Laboratory Results: 03/16/19 08:00 03/16/19 08:00 03/16/19 03/16/19 03/16/19 08:00 08:00 08:00 WBC 5.0 RBC 4.37 Hgb 14.4 Hct 43.0 MCV 98 H MCH 32.9 MCHC 33.5 RDW 12.9 Plt Count 209 Seg Neutrophils % 65.6 Carbonic Acid HCO3/H2CO3 Ratio ABG pH ABG pCO2 ABG pO2 ABG HCO3 ABG O2 Saturation ABG Base Excess FiO2 Sodium 142.3 Potassium 4.2 Chloride 107 Carbon Dioxide 23 Anion Gap 12 BUN 7 Creatinine 0.87 Est GFR ( Amer) > 60 Glucose 109 Lactic Acid Calcium 9.2 Magnesium 1.9 Total Bilirubin 0.5 AST 31 Alkaline Phosphatase 64 Total Protein 7.1 Albumin 4.2 03/16/19 03/16/19 10:10 10:37 WBC RBC Hgb Hct MCV MCH MCHC RDW Plt Count Seg Neutrophils % Carbonic Acid 1.29 HCO3/H2CO3 Ratio 17:1 ABG pH 7.33 L ABG pCO2 42.9 ABG pO2 92.5 ABG HCO3 22.2 ABG O2 Saturation 96.6 ABG Base Excess -3.6 FiO2 ROOM AIR Sodium Potassium Chloride Carbon Dioxide Anion Gap BUN Creatinine Est GFR ( Amer) Glucose Lactic Acid 1.9 Calcium Magnesium Total Bilirubin AST Alkaline Phosphatase Total Protein Albumin 03/16/19 03/16/19 03/16/19 08:00 08:00 11:00 Creatine Kinase 185 H CK-MB (CK-2) 1.51 Troponin I < 0.012 < 0.012 Impressions: Chest/Abdomen CTA 03/16/19 08:42 IMPRESSION: 1. NORMAL CTA OF THE CHEST. NO PULMONARY EMBOLI. 2. MILD SCARRING. SMALL NONSPECIFIC SUB SOLID GROUND-GLASS NODULES MEASURING 4.7 MM AND 5.3 MM. FOLLOW-UP CLINICALLY INDICATED. NO OTHER SIGNIFICANT FINDINGS. Assessment and Plan - Diagnosis (1) Chest wall pain Is this a current diagnosis for this admission?: Yes (2) Alcohol abuse Is this a current diagnosis for this admission?: Yes (3) Tobacco abuse Is this a current diagnosis for this admission?: Yes (4) History of coronary artery disease Is this a current diagnosis for this admission?: Yes (5) COPD exacerbation Is this a current diagnosis for this admission?: Yes - Plan Summary Summary: And empirically starting him on IV Zithromax and IV steroids. Consulting cardiology even though his troponins were negative back in December and also negative now. Sed rate looking for pericarditis possibilities. I have not started patient on beta-blockers or statins, pending further work-up. Patient does seem to be noncompliant. Patient is in no distress. Use IV Toradol for his pain management - Time Time Spent with patient: 35 or more minutes
[2019-03-16 19:37] LABS: CREATINE KINASE MB 0.89 ng/mL (<4.55); NT PRO BNP 40 pg/mL (<125)
[2019-03-16 19:39] LABS: TROPONIN I < 0.012 ng/mL
[2019-03-16] MEDS: IPRATROPIUM/ALBUTEROL 0.5-2.5 MG/3 ML AMPUL NEB SCH (21:18)
[2019-03-16] MEDS: METHYLPREDNISOLONE INJ 40 MG/1 ML SDV IV SCH (23:37)
[2019-03-16] MEDS: KETOROLAC TROMETHAMINE INJ/PF 30 MG/1 ML SDV IV SCH (23:37)
[2019-03-16] MEDS: ENOXAPARIN SODIUM INJ 40 MG/0.4 ML DISP.SYRIN SUBCUT SCH (23:37)
[2019-03-16] MEDS: FAMOTIDINE 20 MG TABLET PO SCH (23:38)
[2019-03-17] MEDS: KETOROLAC TROMETHAMINE INJ/PF 30 MG/1 ML SDV IV SCH ×4 (03:38→18:59)
[2019-03-17 05:12] LABS: HEMATOCRIT 44.2 % (37.9-51.0); HEMOGLOBIN 14.7 g/dL (13.5-17.0); MEAN CORPUSCULAR HEMOGLOBIN 33.1 pg (27.0-33.4); MEAN CORPUSCULAR HGB CONC 33.3 g/dL (32.0-36.0); MEAN CORPUSCULAR VOLUME 99 fl (80-97); PLATELET COUNT 179 10^3/uL (150-450); RED BLOOD COUNT 4.45 10^6/uL (4.35-5.55); WHITE BLOOD COUNT 7.7 10^3/uL (4.0-10.5)
[2019-03-17 05:51] LABS: ABSOLUTE LYMPHOCYTES# (MANUAL) 0.3 10^3/uL (0.5-4.7); BAND NEUTROPHILS % (MANUAL) 1 % (3-5); BASOPHILS % (MANUAL) 1 % (0-2); EOSINOPHILS % (MANUAL) 0 % (0-6); LYMPHOCYTES % (MANUAL) 4 % (13-45); MONOCYTES % (MANUAL) 0 % (3-13); PLATELET COMMENT ADEQUATE; SEGMENTED NEUTROPHILS % (MAN) 94 % (42-78); TOTAL CELLS COUNTED 100
[2019-03-17 05:53] LABS: ANION GAP 9 (5-19); BLOOD UREA NITROGEN 19 mg/dL (7-20); CALCIUM 9.9 mg/dL (8.4-10.2); CARBON DIOXIDE 25 mmol/L (22-30); CHLORIDE 105 mmol/L (98-107); GLUCOSE 154 mg/dL (75-110)
[2019-03-17] MEDS: METHYLPREDNISOLONE INJ 40 MG/1 ML SDV IV SCH ×3 (06:32→21:41)
[2019-03-17] MEDS: IPRATROPIUM/ALBUTEROL 0.5-2.5 MG/3 ML AMPUL NEB SCH ×4 (08:10→20:21)
[2019-03-17] MEDS: DOCUSATE SODIUM 100 MG CAPSULE PO SCH (10:46)
[2019-03-17] MEDS: ASPIRIN 81 MG TABLET, ENT COATED PO SCH (10:46)
[2019-03-17] MEDS: ENOXAPARIN SODIUM INJ 40 MG/0.4 ML DISP.SYRIN SUBCUT SCH (10:46)
[2019-03-17] MEDS: FAMOTIDINE 20 MG TABLET PO SCH ×2 (10:46→21:41)
[2019-03-17 10:58] LABS: APPEARANCE,URINE CLEAR; BILIRUBIN,URINE NEGATIVE (NEGATIVE); COLOR,URINE YELLOW; GLUCOSE, URINE >=500 mg/dL (NEGATIVE); KETONES,URINE NEGATIVE (NEGATIVE); LEUKOCYTE ESTERASE,URINE NEGATIVE (NEGATIVE); NITRITE,URINE NEGATIVE (NEGATIVE); PROTEIN,URINE 30 mg/dL (NEGATIVE); URINE SPECIFIC GRAVITY 1.031; UROBILINOGEN,URINE NEGATIVE mg/dL (<2.0)
[2019-03-17 11:15] LABS: URINE AMPHETAMINES SCREEN NEGATIVE; URINE BARBITURATES SCREEN NEGATIVE; URINE BENZODIAZEPINES SCREEN NEGATIVE; URINE COCAINE SCREEN NEGATIVE; URINE MARIJUANA (THC) SCREEN NEGATIVE; URINE METHADONE SCREEN NEGATIVE; URINE PHENCYCLIDINE SCREEN NEGATIVE
[2019-03-17] MEDS: AZITHROMYCIN 500 MG in DEXTROSE 5%-WATER 250 ML IV SCH (14:36)
--- NOTE | 2019-03-17 15:28 | Progress Note ---
Provider Note Provider Note: CARDIOLOGY PROGRESS NOTE by Dr. Deja Starr on 03/17/2019. SUBJECTIVE: The patient states his chest pain is much improved and he has no chest pain at rest or with deep breathing. But if he moves his arms and especially his left shoulder and if he contracts his left pectoral muscle, and also on palpation of the left front of the chest reproduces his pain it is clearly noncardiac. He states he has cough but is not productive producing any sputum but the cough is very much improved. He denies any PND orthopnea. There is no shortness of breath at rest. There is no arrhythmia seen on the monitor. PHYSICAL EXAMINATION the patient is well-built. And well-nourished. In no acute distress. Selected Entries 03/17/19 12:14 Temperature 98.0 F Temperature Oral Source Pulse Rate 66 Respiratory 16 Rate Blood Pressure 130/75 H Blood Pressure 93 Mean BP Location Right Arm BP Position Supine O2 Sat by Pulse 98 Oximetry Oxygen Delivery Room Air Method Head: Is atraumatic normocephalic. EYES: Pupils are equal round regular reactive to light accommodation. EARS: Tympanic membranes are intact external auditory canals are clear. EYES: Pupils are equal round regular reactive to light and accommodation. Extraocular movements are normal. There is no conjunctival pallor. NOSE: There is no deviated nasal septum. There is no inflammation of the nasal mucous membrane. MOUTH: Mucous membranes of the mouth are moist. There is no bleeding from the gums.. THROAT: There is no redness of the oropharynx. There is no exudates. SKIN: There is no skin rashes. There is no skin lesions. There is no skin petechia or ecchymosis. NECK: Supple. There is no JVD. Carotids are equal there is no bruit. LUNGS: There is diminished air entry prolonged expiration. On percussion there is hyperresonance. There is a few scattered rhonchi. Pressing on the patient's left chest wall reproduces the patient's symptoms. HEART: S1-S2 is heard. There is no S3 gallop. There is no S4 gallop. Systolic murmur left sternal border and the apex there is no rub. ABDOMEN is soft. Nontender there is no paraspinal megaly. Bowel sounds are well heard. EXTREMITIES: Femorals are diminished there is no femoral bruits. Leg pulses are diminished. There is no pedal edema. There is no DVT or cellulitis. There is no calf tenderness. There is no cyanosis or clubbing. POLYMER SPECIALIST: The patient is conscious awake alert oriented x3 with no focal deficits. PSYCHIATRIC: The patient judgment insight are intact her affect is normal. Labs- All tests 24 hr 03/17/19 03/17/19 03/17/19 04:18 04:18 10:28 WBC 7.7 RBC 4.45 Hgb 14.7 Hct 44.2 MCV 99 H MCH 33.1 MCHC 33.3 RDW 13.0 Plt Count 179 Lymph % (Auto) Not Reportable [place] % (Auto) Not Reportable Eos % (Auto) Not Reportable Baso % (Auto) Not Reportable Absolute Neuts (auto) Not Reportable Absolute Lymphs (auto) Not Reportable Absolute Monos (auto) Not Reportable Absolute Eos (auto) Not Reportable Absolute Basos (auto) Not Reportable Total Counted 100 Seg Neutrophils % Not Reportable Seg Neuts % (Manual) 94 H Band Neutrophils % 1 L Lymphocytes % (Manual) 4 L Monocytes % (Manual) 0 L Eosinophils % (Manual) 0 Basophils % (Manual) 1 Abs Neuts (Manual) 7.3 Abs Lymphs (Manual) 0.3 L Abs Monocytes (Manual) 0.0 L Absolute Eos (Manual) 0.0 Abs Basophils (Manual) 0.1 Platelet Comment ADEQUATE Macrocytosis SLIGHT Sodium 138.9 Potassium 5.0 Chloride 105 Carbon Dioxide 25 Anion Gap 9 BUN 19 Creatinine 0.96 Est GFR ( Amer) > 60 Est GFR (MDRD) Non-Af > 60 Glucose 154 H Calcium 9.9 Magnesium 2.0 Urine Color YELLOW Urine Appearance CLEAR Urine pH 6.0 Ur Specific [place] 1.031 Urine Protein 30 H Urine Glucose (UA) >=500 H Urine Ketones NEGATIVE Urine Blood NEGATIVE Urine Nitrite NEGATIVE Urine Bilirubin NEGATIVE Urine Urobilinogen NEGATIVE Ur Leukocyte Esterase NEGATIVE Urine RBC (Auto) 2 Squamous Epi Cells Auto <1 Urine Mucus (Auto) OCC Urine Ascorbic Acid NEGATIVE Urine Opiates Screen Urine Methadone Screen Ur Barbiturates Screen Ur Phencyclidine Scrn Ur Amphetamines Screen U Benzodiazepines Scrn Urine Cocaine Screen U Marijuana (THC) Screen 03/17/19 10:28 WBC RBC Hgb Hct MCV MCH MCHC RDW Plt Count Lymph % (Auto) [place] % (Auto) Eos % (Auto) Baso % (Auto) Absolute Neuts (auto) Absolute Lymphs (auto) Absolute Monos (auto) Absolute Eos (auto) Absolute Basos (auto) Total Counted Seg Neutrophils % Seg Neuts % (Manual) Band Neutrophils % Lymphocytes % (Manual) Monocytes % (Manual) Eosinophils % (Manual) Basophils % (Manual) Abs Neuts (Manual) Abs Lymphs (Manual) Abs Monocytes (Manual) Absolute Eos (Manual) Abs Basophils (Manual) Platelet Comment Macrocytosis Sodium Potassium Chloride Carbon Dioxide Anion Gap BUN Creatinine Est GFR ( Amer) Est GFR (MDRD) Non-Af Glucose Calcium Magnesium Urine Color Urine Appearance Urine pH Ur Specific [place] Urine Protein Urine Glucose (UA) Urine Ketones Urine Blood Urine Nitrite Urine Bilirubin Urine Urobilinogen Ur Leukocyte Esterase Urine RBC (Auto) Squamous Epi Cells Auto Urine Mucus (Auto) Urine Ascorbic Acid Urine Opiates Screen NEGATIVE Urine Methadone Screen NEGATIVE Ur Barbiturates Screen NEGATIVE Ur Phencyclidine Scrn NEGATIVE Ur Amphetamines Screen NEGATIVE U Benzodiazepines Scrn NEGATIVE Urine Cocaine Screen NEGATIVE U Marijuana (THC) Screen NEGATIVE Chest/Abdomen CTA 03/16/19 08:42 IMPRESSION: 1. NORMAL CTA OF THE CHEST. NO PULMONARY EMBOLI. 2. MILD SCARRING. SMALL NONSPECIFIC SUB SOLID GROUND-GLASS NODULES MEASURING 4.7 MM AND 5.3 MM. FOLLOW-UP CLINICALLY INDICATED. NO OTHER SIGNIFICANT FINDINGS. IMPRESSION/RECOMMENDATION: 1. CHEST pain this is clearly noncardiac and chest wall pain. 2. COPD with acute exacerbation: Getting better. 3. Tobacco abuse disorder. 4. Hypertension: Blood pressure well controlled. Medications reviewed medical regimen discussed with the attending physician including the management plan. The patient is asked to follow-up with me in the office. Plan to further test as an outpatient. The patient does have risk factors for CAD namely age hypertension, family history of CAD and tobacco abuse. Will sign off the case. Medical decision making is a moderate complexity. 40 minutes spent as patient more than 50% of time spent in direct patient care. Will follow.
--- NOTE | 2019-03-17 17:39 | PDOC PROGRESS REPORT ---
Subjective Progress Note for:: 03/17/19 Subjective:: This is a 58-year-old male with CAD and COPD who presented with increased shortness of breath and pleuritic chest pain. Patient was admitted for COPD exacerbation but he was added on IV steroids and breathing treatments. His troponins and EKGs were also cycled. No acute event overnight. Upon encounter this morning, he appears comfortable. He says that his shortness of breath is significantly improved and he feels like he is starting to return to his baseline. Reason For Visit: COPD EXACERBATION,CHEST WALL PAIN,TOBACCO ABUSE Physical Exam Vital Signs: Temp Pulse Resp BP Pulse Ox 98.0 F 78 18 126/71 H 95 03/17/19 14:51 03/17/19 16:31 03/17/19 16:31 03/17/19 14:51 03/17/19 16:31 Intake & Output 03/16/19 03/17/19 03/18/19 06:59 06:59 06:59 Intake Total 840 720 Output Total 500 550 Balance 340 170 Weight 142 lb 13.753 oz General appearance: PRESENT: no acute distress, well-developed, well-nourished Head exam: PRESENT: atraumatic, normocephalic Eye exam: PRESENT: conjunctiva pink, EOMI, PERRLA. ABSENT: scleral icterus Ear exam: PRESENT: normal external ear exam Mouth exam: PRESENT: moist, tongue midline Neck exam: ABSENT: carotid bruit, JVD, lymphadenopathy, thyromegaly Respiratory exam: PRESENT: rhonchi, wheezes. ABSENT: rales Cardiovascular exam: PRESENT: RRR. ABSENT: diastolic murmur, rubs, systolic murmur Pulses: PRESENT: normal dorsalis pedis pul GI/Abdominal exam: PRESENT: normal bowel sounds, soft. ABSENT: distended, guarding, mass, organolmegaly, rebound, tenderness Rectal exam: PRESENT: deferred Extremities exam: PRESENT: full ROM. ABSENT: calf tenderness, clubbing, pedal edema Neurological exam: PRESENT: alert, awake, oriented to person, oriented to place, oriented to time, oriented to situation, CN II-XII grossly intact. ABSENT: motor sensory deficit Results Laboratory Results: 03/17/19 04:18 03/17/19 04:18 03/17/19 03/17/19 03/17/19 04:18 04:18 10:28 WBC 7.7 RBC 4.45 Hgb 14.7 Hct 44.2 MCV 99 H MCH 33.1 MCHC 33.3 RDW 13.0 Plt Count 179 Seg Neutrophils % Not Reportable Sodium 138.9 Potassium 5.0 Chloride 105 Carbon Dioxide 25 Anion Gap 9 BUN 19 Creatinine 0.96 Est GFR ( Amer) > 60 Glucose 154 H Calcium 9.9 Magnesium 2.0 Urine Color YELLOW Urine Appearance CLEAR Urine pH 6.0 Ur Specific [place] 1.031 Urine Protein 30 H Urine Glucose (UA) >=500 H Urine Ketones NEGATIVE Urine Blood NEGATIVE Urine Nitrite NEGATIVE Ur Leukocyte Esterase NEGATIVE Urine RBC (Auto) 2 03/16/19 03/16/19 03/16/19 08:00 08:00 11:00 Creatine Kinase 185 H CK-MB (CK-2) 1.51 Troponin I < 0.012 < 0.012 NT-Pro-B Natriuret Pep 03/16/19 18:53 Creatine Kinase CK-MB (CK-2) 0.89 Troponin I < 0.012 NT-Pro-B Natriuret Pep 40 Impressions: Chest/Abdomen CTA 03/16/19 08:42 IMPRESSION: 1. NORMAL CTA OF THE CHEST. NO PULMONARY EMBOLI. 2. MILD SCARRING. SMALL NONSPECIFIC SUB SOLID GROUND-GLASS NODULES MEASURING 4.7 MM AND 5.3 MM. FOLLOW-UP CLINICALLY INDICATED. NO OTHER SIGNIFICANT FINDINGS. Assessment and Plan - Diagnosis (1) COPD exacerbation Is this a current diagnosis for this admission?: Yes Plan: Improving. Decrease Solu-Medrol to every 12. Continue breathing treatments. Anticipate switching to oral steroids and possible discharge in the next 24 hours if he continues to improve towards his baseline. (2) CAD (coronary artery disease) Is this a current diagnosis for this admission?: Yes Plan: Stable. Continue home meds. (3) Pulmonary nodules Is this a current diagnosis for this admission?: Yes Plan: Will set up patient with Dr. Paolmo outpatient for further pulmonology recommendations. (4) Chest wall pain Is this a current diagnosis for this admission?: Yes Plan: Troponins have been negative. EKGs did not show ischemic changes. Chest pain was likely related to COPD exacerbation. - Plan Summary Summary: And empirically starting him on IV Zithromax and IV steroids. Consulting cardiology even though his troponins were negative back in December and also negative now. Sed rate looking for pericarditis possibilities. I have not started patient on beta-blockers or statins, pending further work-up. Patient does seem to be noncompliant. Patient is in no distress. Use IV Toradol for his pain management - Time Time Spent with patient: 25-34 minutes
[2019-03-17] MEDS: OXYCODONE-ACETAMINOPHEN 5-325 MG TABLET PO PRN (21:37)
[2019-03-18] MEDS: KETOROLAC TROMETHAMINE INJ/PF 30 MG/1 ML SDV IV SCH ×3 (05:17→14:11)
[2019-03-18] MEDS: METHYLPREDNISOLONE INJ 40 MG/1 ML SDV IV SCH ×2 (05:39→14:12)
[2019-03-18] MEDS: IPRATROPIUM/ALBUTEROL 0.5-2.5 MG/3 ML AMPUL NEB SCH ×2 (08:14→12:02)
[2019-03-18] MEDS: DOCUSATE SODIUM 100 MG CAPSULE PO SCH (09:54)
[2019-03-18] MEDS: ASPIRIN 81 MG TABLET, ENT COATED PO SCH (09:54)
[2019-03-18] MEDS: FAMOTIDINE 20 MG TABLET PO SCH (09:54)
[2019-03-18] MEDS: ENOXAPARIN SODIUM INJ 40 MG/0.4 ML DISP.SYRIN SUBCUT SCH (09:55)
[2019-03-18] MEDS: OXYCODONE-ACETAMINOPHEN 5-325 MG TABLET PO PRN (10:04)
[2019-03-18] MEDS: AZITHROMYCIN 500 MG in DEXTROSE 5%-WATER 250 ML IV SCH (10:56)
[2019-03-18 12:53] VITALS: BP 117/71
[2019-03-18] MEDS ORDERED: FLUTICASONE/VILANTEROL 100-25 MCG/DOSE IH SCH (16:00)
--- NOTE | 2019-03-18 17:53 | PDOC DISCHARGE SUMMARY ---
Impression - Admit/DC Date/PCP Admission Date/Primary Care Provider: 03/16/19 13:29 Discharge Date: 03/18/19 - Discharge Diagnosis (1) COPD exacerbation Is this a current diagnosis for this admission?: Yes (2) CAD (coronary artery disease) Is this a current diagnosis for this admission?: Yes (3) Pulmonary nodules Is this a current diagnosis for this admission?: Yes (4) Chest wall pain Is this a current diagnosis for this admission?: Yes - Assessment Summary: And empirically starting him on IV Zithromax and IV steroids. Consulting cardiology even though his troponins were negative back in December and also negative now. Sed rate looking for pericarditis possibilities. I have not started patient on beta-blockers or statins, pending further work-up. Patient does seem to be noncompliant. Patient is in no distress. Use IV Toradol for his pain management - Additional Information Resuscitation Status: Do Not Resuscitate Discharge Diet: As Tolerated Discharge Activity: Activity As Tolerated, Balance Activity w/Rest Referrals: [facility] [Outside] MAR HARPER MD [ACTIVE STAFF] - (DX Pulmonary nodules) Prescriptions: Fluticasone/Salmeterol [Advair HFA 115-21 mcg Inhaler] 1 puff IH BID #1 mdi Prednisone [Deltasone 20 mg Tablet] 20 mg PO BID 5 Days #10 tablet Ipratropium/Albuterol Sulfate [Duoneb 3 ml Ampul] 3 ml NEB RTQ6HP PRN #30 vial.neb PRN Reason: for SOB or wheezing Tiotropium [place] [Spiriva Handihaler 5 Cap/Kit (18 Mcg/Cap)] 1 cap IH DAILY #30 capsule Home Medications: Aspirin [Aspir-Low] 81 mg PO DAILY 03/16/19 Fluticasone/Salmeterol [Advair HFA 115-21 mcg Inhaler] 1 puff IH BID #1 mdi 03/18/19 Ipratropium/Albuterol Sulfate [Duoneb 3 ml Ampul] 3 ml NEB RTQ6HP PRN #30 vial.neb 03/18/19 Prednisone [Deltasone 20 mg Tablet] 20 mg PO BID 5 Days #10 tablet 03/18/19 Tiotropium [place] [Spiriva Handihaler 5 Cap/Kit (18 Mcg/Cap)] 1 cap IH DAILY #30 capsule 03/18/19 History of Present Illiness History of Present Illness: Admitting hospitalist's H&P: ERYN BARLOW is a 58 year old male who comes into the hospital with a history of worsening of shortness of breath and left-sided chest wall pain. Patient was here in the emergency room on 12/22/2018 with the same symptoms. At that time patient was treated with 1 dose of IV Rocephin and sent home with a prescription for doxycycline. At that time he did appear to have a pneumonia in the left lower lobe by chest x-ray Today he comes in with almost the exact same symptoms. Today however CT angiogram of the chest shows no signs of pneumonia only, small nodules that were not there back in 2010 by comparison. Actually called the radiologist and spoke to him dated that these nodules are new since 2010. Also stated that there is no sign of pneumonia on today's CT scan of the chest. Put patient in the hospital and consult cardiology even though all of his troponins are negative, sed rate, just thinking about pericarditis. We will empirically start him on some steroids and IV Zithromax. Cultures are pending. Patient denies other chronic illnesses such as diabetes or hypertension. Does smoke about 1 pack of cigarettes per day and he drinks beer on a regular basis. He says sometimes he will go we cannot drink any beer. Patient does have a history of cardiac disease over 20 years ago when he was cathed at [facility]. Though no stents and no CABG was performed. Hospital Course Hospital Course: This is a 58-year-old male with CAD and COPD who presented with increased shortness of breath and chest pain. Patient was admitted for COPD exacerbation but he was added on IV steroids and breathing treatments. His troponins and EKGs were also cycled. He was also seen by cardiology. Chest pain is non cardiac and is musculoskeletal in origin. He did improve significantly with steroids and breathing treatments. He returned to his baseline. He will complete 5 more days of prednisone. He will follow up with Dr. Lopez for possible outpatient stress testing. Physical Exam Vital Signs: Temp Pulse Resp BP Pulse Ox 97.6 F 74 16 117/71 98 03/18/19 12:00 03/18/19 12:04 03/18/19 12:04 03/18/19 12:00 03/18/19 12:04 Intake & Output 1203/18/19 03/19/19 06:59 06:59 06:59 Intake Total 840 1470 Output Total 500 1500 Balance 340 -30 Weight 142 lb 13.753 oz 152 lb 1.903 oz General appearance: PRESENT: no acute distress, well-developed, well-nourished Head exam: PRESENT: atraumatic, normocephalic Eye exam: PRESENT: conjunctiva pink, EOMI, PERRLA. ABSENT: scleral icterus Ear exam: PRESENT: normal external ear exam Mouth exam: PRESENT: moist, tongue midline Neck exam: ABSENT: carotid bruit, JVD, lymphadenopathy, thyromegaly Respiratory exam: PRESENT: rhonchi. ABSENT: rales, wheezes Cardiovascular exam: PRESENT: RRR. ABSENT: diastolic murmur, rubs, systolic murmur Pulses: PRESENT: normal dorsalis pedis pul GI/Abdominal exam: PRESENT: normal bowel sounds, soft. ABSENT: distended, guarding, mass, organolmegaly, rebound, tenderness Rectal exam: PRESENT: deferred Extremities exam: PRESENT: full ROM. ABSENT: calf tenderness, clubbing, pedal edema Neurological exam: PRESENT: alert, awake, oriented to person, oriented to place, oriented to time, oriented to situation, CN II-XII grossly intact. ABSENT: motor sensory deficit Results Laboratory Results: WBC 7.7 10^3/uL (4.0-10.5) 03/17/19 04:18 RBC 4.45 10^6/uL (4.35-5.55) 03/17/19 04:18 Hgb 14.7 g/dL (13.5-17.0) 03/17/19 04:18 Hct 44.2 % (37.9-51.0) 03/17/19 04:18 MCV 99 fl (80-97) H 03/17/19 04:18 MCH 33.1 pg (27.0-33.4) 03/17/19 04:18 MCHC 33.3 g/dL (32.0-36.0) 03/17/19 04:18 RDW 13.0 % (11.5-14.0) 03/17/19 04:18 Plt Count 179 10^3/uL (150-450) 03/17/19 04:18 Lymph % (Auto) Not Reportable 03/17/19 04:18 [place] % (Auto) Not Reportable 03/17/19 04:18 Eos % (Auto) Not Reportable 03/17/19 04:18 Baso % (Auto) Not Reportable 03/17/19 04:18 Absolute Neuts (auto) Not Reportable 03/17/19 04:18 Absolute Lymphs (auto) Not Reportable 03/17/19 04:18 Absolute Monos (auto) Not Reportable 03/17/19 04:18 Absolute Eos (auto) Not Reportable 03/17/19 04:18 Absolute Basos (auto) Not Reportable 03/17/19 04:18 Total Counted 100 03/17/19 04:18 Seg Neutrophils % Not Reportable 03/17/19 04:18 Seg Neuts % (Manual) 94 % (42-78) H 03/17/19 04:18 Band Neutrophils % 1 % (3-5) L 03/17/19 04:18 Lymphocytes % (Manual) 4 % (13-45) L 03/17/19 04:18 Monocytes % (Manual) 0 % (3-13) L 03/17/19 04:18 Eosinophils % (Manual) 0 % (0-6) 03/17/19 04:18 Basophils % (Manual) 1 % (0-2) 03/17/19 04:18 Abs Neuts (Manual) 7.3 10^3/uL (1.7-8.2) 03/17/19 04:18 Abs Lymphs (Manual) 0.3 10^3/uL (0.5-4.7) L 03/17/19 04:18 Abs Monocytes (Manual) 0.0 10^3/uL (0.1-1.4) L 03/17/19 04:18 Absolute Eos (Manual) 0.0 10^3/uL (0.0-0.6) 03/17/19 04:18 Abs Basophils (Manual) 0.1 10^3/uL (0.0-0.2) 03/17/19 04:18 Platelet Comment ADEQUATE 03/17/19 04:18 Macrocytosis SLIGHT 03/17/19 04:18 ESR 7 mm/hr (0-20) 03/16/19 18:53 Carbonic Acid 1.29 mmol/L (1.05-1.35) 03/16/19 10:37 HCO3/H2CO3 Ratio 17:1 03/16/19 10:37 ABG pH 7.33 (7.35-7.45) L 03/16/19 10:37 ABG pCO2 42.9 mmHg (35-45) 03/16/19 10:37 ABG pO2 92.5 mmHg (80-100) 03/16/19 10:37 ABG HCO3 22.2 mmol/L (20-24) 03/16/19 10:37 ABG Total CO2 23.5 mmol/L (23-27) 03/16/19 10:37 ABG O2 Saturation 96.6 % (94-98) 03/16/19 10:37 ABG Base Excess -3.6 mmol/L 03/16/19 10:37 FiO2 ROOM AIR 03/16/19 10:37 Sodium 138.9 mmol/L (137-145) 03/17/19 04:18 Potassium 5.0 mmol/L (3.6-5.0) 03/17/19 04:18 Chloride 105 mmol/L (98-107) 03/17/19 04:18 Carbon Dioxide 25 mmol/L (22-30) 03/17/19 04:18 Anion Gap 9 (5-19) 03/17/19 04:18 BUN 19 mg/dL (7-20) 03/17/19 04:18 Creatinine 0.96 mg/dL (0.52-1.25) 03/17/19 04:18 Est GFR ( Amer) > 60 (>60) 03/17/19 04:18 Est GFR (MDRD) Non-Af > 60 (>60) 03/17/19 04:18 Glucose 154 mg/dL (75-110) H 03/17/19 04:18 Lactic Acid 1.9 mmol/L (0.7-2.1) 03/16/19 10:10 Calcium 9.9 mg/dL (8.4-10.2) 03/17/19 04:18 Magnesium 2.0 mg/dL (1.6-2.3) 03/17/19 04:18 Total Bilirubin 0.5 mg/dL (0.2-1.3) 03/16/19 08:00 Direct Bilirubin 0.2 mg/dL (0.0-0.4) 03/16/19 08:00 Neonat Total Bilirubin Not Reportable 03/16/19 08:00 Neonat Direct Bilirubin Not Reportable 03/16/19 08:00 Neonat Indirect Bili Not Reportable 03/16/19 08:00 AST 31 U/L (17-59) 03/16/19 08:00 ALT 20 U/L (<50) 03/16/19 08:00 Alkaline Phosphatase 64 U/L (38-126) 03/16/19 08:00 Creatine Kinase 185 U/L (55-170) H 03/16/19 08:00 CK-MB (CK-2) 0.89 ng/mL (<4.55) 03/16/19 18:53 Troponin I < 0.012 ng/mL 03/16/19 18:53 NT-Pro-B Natriuret Pep 40 pg/mL (<125) 03/16/19 18:53 Total Protein 7.1 g/dL (6.3-8.2) 03/16/19 08:00 Albumin 4.2 g/dL (3.5-5.0) 03/16/19 08:00 Urine Color YELLOW 03/17/19 10:28 Urine Appearance CLEAR 03/17/19 10:28 Urine pH 6.0 (5.0-9.0) 03/17/19 10:28 Ur Specific [place] 1.031 03/17/19 10:28 Urine Protein 30 mg/dL (NEGATIVE) H 03/17/19 10:28 Urine Glucose (UA) >=500 mg/dL (NEGATIVE) H 03/17/19 10:28 Urine Ketones NEGATIVE mg/dL (NEGATIVE) 03/17/19 10:28 Urine Blood NEGATIVE (NEGATIVE) 03/17/19 10:28 Urine Nitrite NEGATIVE (NEGATIVE) 03/17/19 10:28 Urine Bilirubin NEGATIVE (NEGATIVE) 03/17/19 10:28 Urine Urobilinogen NEGATIVE mg/dL (<2.0) 03/17/19 10:28 Ur Leukocyte Esterase NEGATIVE (NEGATIVE) 03/17/19 10:28 Urine RBC (Auto) 2 /HPF 03/17/19 10:28 Squamous Epi Cells Auto <1 /HPF 03/17/19 10:28 Urine Mucus (Auto) OCC /LPF 03/17/19 10:28 Urine Ascorbic Acid NEGATIVE (NEGATIVE) 03/17/19 10:28 Urine Opiates Screen NEGATIVE 03/17/19 10:28 Urine Methadone Screen NEGATIVE 03/17/19 10:28 Ur Barbiturates Screen NEGATIVE 03/17/19 10:28 Ur Phencyclidine Scrn NEGATIVE 03/17/19 10:28 Ur Amphetamines Screen NEGATIVE 03/17/19 10:28 U Benzodiazepines Scrn NEGATIVE 03/17/19 10:28 Urine Cocaine Screen NEGATIVE 03/17/19 10:28 U Marijuana (THC) Screen NEGATIVE 03/17/19 10:28 03/16/19 03/16/19 03/16/19 08:00 11:00 18:53 CK-MB (CK-2) 1.51 0.89 Troponin I < 0.012 < 0.012 < 0.012 NT-Pro-B Natriuret Pep 40 Impressions: Chest/Abdomen CTA 03/16/19 08:42 IMPRESSION: 1. NORMAL CTA OF THE CHEST. NO PULMONARY EMBOLI. 2. MILD SCARRING. SMALL NONSPECIFIC SUB SOLID GROUND-GLASS NODULES MEASURING 4.7 MM AND 5.3 MM. FOLLOW-UP CLINICALLY INDICATED. NO OTHER SIGNIFICANT FINDINGS. Stroke Is this a Stroke Patient?: No Acute Heart Failure - Is this a Heart Failure Patient?: No
== END 2019-03-18 14:15 | disposition home or self-care (01) ==
LOC: ER 07:52 → EH 13:29 → INTOOBSV 13:29 → 4N 18:08
PROVIDERS: ADMIT Internal Medicine; ATTEND Internal Medicine
DX: J44.1 Chronic obstructive pulmonary disease with (acute) exacerbation (principal); I25.10 Atherosclerotic heart disease of native coronary artery without angina pectoris; R91.8 Other nonspecific abnormal finding of lung field; R07.89 Other chest pain; F17.210 Nicotine dependence, cigarettes, uncomplicated; F10.10 Alcohol abuse, uncomplicated; I25.2 Old myocardial infarction; R09.02 Hypoxemia; Z66 Do not resuscitate; Z79.899 Other long term (current) drug therapy; Z82.49 Family history of ischemic heart disease and other diseases of the circulatory system; Z87.01 Personal history of pneumonia (recurrent)
CPT/HCPCS: 93005; 94640 ×5; 99285; 96365; 36415 ×2; 87040; 82553; 82803; 82550; 83605; 83735 ×2; 85025 ×2; 85652; 80048; 80053; 81001; 84484; 80307; 83880; 71275; 93010; 36600; G0378 ×3; J3490 ×3; J2920 ×3; J1885 ×3; J1650 ×3; J7512; J7060 ×2; J0456 ×2; J7620 ×3

== ENCOUNTER 2019-04-17 00:57 | Emergency (ER) | payer SELFPAY ==
[2019-04-17 01:41] LABS: ABSOLUTE EOSINOPHILS # (AUTO) 0.2 10^3/uL (0.0-0.6); ABSOLUTE LYMPHOCYTES (AUTO) 1.4 10^3/uL (0.5-4.7); ABSOLUTE MONOCYTES (AUTO) 0.3 10^3/uL (0.1-1.4); ABSOLUTE NEUT (AUTO) 1.7 10^3/uL (1.7-8.2); BASOPHILS % (AUTO) 0.7 % (0-2); EOSINOPHILS % (AUTO) 4.4 % (0-6); HEMATOCRIT 40.4 % (37.9-51.0); HEMOGLOBIN 13.7 g/dL (13.5-17.0); LYMPHOCYTES % (AUTO) 39.3 % (13-45); MEAN CORPUSCULAR HEMOGLOBIN 33.5 pg (27.0-33.4); MEAN CORPUSCULAR HGB CONC 33.9 g/dL (32.0-36.0); MEAN CORPUSCULAR VOLUME 99 fl (80-97); MONOCYTES % (AUTO) 7.5 % (3-13); PLATELET COUNT 200 10^3/uL (150-450); RED BLOOD COUNT 4.09 10^6/uL (4.35-5.55); RED CELL DISTRIBUTION WIDTH 14.2 % (11.5-14.0); SEGMENTED NEUTROPHILS % (AUTO) 48.1 % (42-78); TOTAL CELLS COUNTED % (AUTO) 100 %; WHITE BLOOD COUNT 3.5 10^3/uL (4.0-10.5)
[2019-04-17 01:48] LABS: ALBUMIN 3.9 g/dL (3.5-5.0); ALKALINE PHOSPHATASE 70 U/L (38-126); ANION GAP 10 (5-19); ASPARTATE AMINO TRANSFERASE 45 U/L (17-59); BILIRUBIN,DIRECT 0.3 mg/dL (0.0-0.4); BILIRUBIN,TOTAL 0.3 mg/dL (0.2-1.3); BLOOD UREA NITROGEN 6 mg/dL (7-20); CALCIUM 9.3 mg/dL (8.4-10.2); CARBON DIOXIDE 27 mmol/L (22-30); CHLORIDE 107 mmol/L (98-107); CREATINE KINASE 549 U/L (55-170); GLUCOSE 94 mg/dL (75-110); TOTAL PROTEIN 6.8 g/dL (6.3-8.2)
[2019-04-17 02:05] LABS: CREATINE KINASE MB 5.46 ng/mL (<4.55)
[2019-04-17 02:06] LABS: TROPONIN I < 0.012 ng/mL
--- NOTE | 2019-04-17 02:27 | ER Document Report ---
ED General - General Chief Complaint: Chest Pain Stated Complaint: CHEST PAIN SECONDARY TO PNEUMONIA Time Seen by Provider: 04/17/19 01:37 Information source: Patient TRAVEL OUTSIDE OF THE [place] IN LAST 30 DAYS: No - HPI Patient complains to provider of: chest pain Onset: Other - for months Onset/Duration: Gradual, Constant Severity: Moderate Context: 58 year old male with known COPD - still a current everyday smoker - is here with sharp left sided chest pain. Constant pain is worse with a cough and has been present for "months." Drank 2 tall beers today he reports. Tells of recent admission here for "penumonia" and visit with lung specialist recently. He converses easily in full sentences. Exacerbated by: Denies Relieved by: Denies - Related Data Allergies/Adverse Reactions: No Known Allergies Allergy (Verified 08/11/18 12:14) Home Medications: albuterol, atrovent, spiriva Past Medical History - Social History Smoking Status: Current Every Day Smoker Family History: CAD, DM, Hyperlipidemia, Hypertension, Malignancy Patient has suicidal ideation: No Patient has homicidal ideation: No - Past Medical History Cardiac Medical History: Reports: Hx Heart Attack, Hx Hypercholesterolemia, Hx Hypertension Pulmonary Medical History: Reports: Hx Asthma, Hx Bronchitis, Hx COPD, Hx Pneumonia Neurological Medical History: Reports: Hx Cerebrovascular Accident Endocrine Medical History: Reports: Hx Diabetes Mellitus Type 2 Renal/ Medical History: Denies: Hx Peritoneal Dialysis Musculoskeletal Medical History: Reports Hx Arthritis, Reports Hx Musculoskeletal Trauma Skin Medical History: Reports Hx Cellulitis Traumatic Medical History: Reports: Hx Fractures - Right ankle and leg Past Surgical History: Reports: Hx Appendectomy, Hx Orthopedic Surgery - orif left leg - Immunizations Immunizations up to date: Yes Hx Diphtheria, Pertussis, Tetanus Vaccination: Yes - PT UNSURE Review of Systems - Review of Systems Constitutional: No symptoms reported EENT: No symptoms reported Cardiovascular: See HPI, Chest pain Respiratory: No symptoms reported Gastrointestinal: No symptoms reported Genitourinary: No symptoms reported Male Genitourinary: No symptoms reported Musculoskeletal: No symptoms reported Skin: No symptoms reported Hematologic/Lymphatic: No symptoms reported Neurological/Psychological: No symptoms reported Physical Exam - Vital signs Vitals: Resp Pulse Ox 18 100 04/17/19 01:03 04/17/19 01:03 Interpretation: Normal - General General appearance: Appears well, Alert - HEENT Head: Normocephalic, Atraumatic Eyes: Normal Pupils: PERRL - Respiratory Respiratory status: No respiratory distress Chest status: Nontender Breath sounds: Decreased air movement, Wheezing - exp. No: Normal Chest palpation: Normal - Cardiovascular Rhythm: Regular Heart sounds: Normal auscultation Murmur: No - Abdominal Inspection: Normal Distension: No distension Bowel sounds: Normal Tenderness: Nontender Organomegaly: No organomegaly - Back Back: Normal, Nontender - Extremities General upper extremity: Normal inspection, Nontender, Normal color, Normal ROM, Normal temperature General lower extremity: Normal inspection, Nontender, Normal color, Normal ROM, Normal temperature, Normal weight bearing. No: Maria A's sign - Neurological Neuro grossly intact: Yes Cognition: Normal Orientation: AAOx4 Wickes Coma Scale Eye Opening: Spontaneous Wickes Coma Scale Verbal: Oriented Lesvia Coma Scale Motor: Obeys Commands Lesvia Coma Scale Total: 15 Speech: Normal Motor strength normal: LUE, RUE, LLE, RLE Sensory: Normal - Psychological Associated symptoms: Normal affect, Normal mood - Skin Skin Temperature: Warm Skin Moisture: Dry Skin Color: Normal Course - Re-evaluation Re-evalutation: 04/17/19 04:06 MDM 58 year old with chest pain. Cough that is nonproductive and no fever and workup here that is reassuring. 2 sets of Trop are neg and EKG does not appear ischemic. Additionally he has a COPD exac and this chest pain has been con stantly present for the few months. Discussed follow with this gentlaman and he expressed understadning. 04/17/19 05:42 He does feel improved with treatment here. Have discussed seeing pulmonary do ctor in follow up and stoping smoking. He also understands return precautions. Counselled to stop smoking. - Vital Signs Vital signs: Temp Pulse Resp BP Pulse Ox 98.3 F 13 104/61 99 04/17/19 01:20 04/17/19 04:01 04/17/19 04:01 04/17/19 04:01 - Laboratory Result Diagrams: 04/17/19 00:55 04/17/19 00:55 Laboratory results interpreted by me: 04/17/19 04/17/19 04/17/19 00:55 00:55 00:55 WBC 3.5 L RBC 4.09 L MCV 99 H MCH 33.5 H RDW 14.2 H BUN 6 L Creatine Kinase 549 H CK-MB (CK-2) 5.46 H Lipase 04/17/19 00:55 WBC RBC MCV MCH RDW BUN Creatine Kinase CK-MB (CK-2) Lipase 338.7 H - Diagnostic Test Radiology reviewed: Image reviewed, Reports reviewed - EKG Interpretation by Me EKG shows normal: Sinus rhythm Rate: Normal Rhythm: No: NSR - NSR Nl [place] [address] elevtion or depression my interpretation. Discharge - Discharge Clinical Impression: Chest wall pain, COPD exacerbation Condition: Good Disposition: HOME, SELF-CARE Instructions: Chest Wall Pain ([facility]), Chronic Obstructive Lung Disease ([facility]), Family Physicians / Practices, Stop Smoking ([facility]) Additional Instructions: Stop smoking. Do not drink alcohol and if you do drink only in moderation. Please return here for any problems or any concerns. Prescriptions: Cephalexin Monohydrate [Keflex 500 mg Capsule] 500 mg PO TID #30 capsule Prednisone 10 mg PO 12 #1 tab.ds.pk Albuterol Sulfate [Proair HFA Inhalation Aerosol 8.5 gm MDI] 2 puff IH Q4H PRN #1 mdi PRN Reason: Forms: Smoking Cessation Education
--- NOTE | 2019-04-17 02:28 | RADIOLOGY REPORT (SQ) ---
Chest one view on 04/17/2019 1:48 AM CLINICAL INDICATION: Chest pain, shortness of breath COMPARISON: 12/23/2018 FINDINGS: The lungs are clear. Cardiac, hilar and mediastinal contours are within normal limits. Pulmonary vascularity is within normal limits. No bony abnormality is noted. IMPRESSION: No active disease.
[2019-04-17] MEDS ORDERED: IPRATROPIUM/ALBUTEROL 0.5-2.5 MG/3 ML AMPUL NEB ONE (04:01)
[2019-04-17] MEDS ORDERED: METHYLPREDNISOLONE INJ 125 MG/2 ML SDV IV ONE (04:01)
[2019-04-17] MEDS ORDERED: FENTANYL CITRATE INJ/PF 100 MCG/2 ML AMPUL IV ONE (04:02)
[2019-04-17 07:02] VITALS: BP 126/72
--- NOTE | 2019-04-17 13:03 | EKG REPORT ---
SEVERITY:- ABNORMAL ECG - SINUS RHYTHM PROBABLE LEFT VENTRICULAR HYPERTROPHY : Confirmed by: Catalino Hsu 17-Apr-2019 13:02:07
== END 2019-04-17 07:02 | disposition home or self-care (01) ==
LOC: ER 00:57
DX: R07.89 Other chest pain (principal); J44.1 Chronic obstructive pulmonary disease with (acute) exacerbation; R05 Cough; F17.200 Nicotine dependence, unspecified, uncomplicated; I10 Essential (primary) hypertension; E11.9 Type 2 diabetes mellitus without complications; Z87.01 Personal history of pneumonia (recurrent)
CPT/HCPCS: 93005; 94640; 99284; 96374; 96375; 36415; 82553; 82550; 83690; 85025; 80053; 84484; 71045; 93010; J3010; J2930; J7620

== ENCOUNTER 2019-04-19 23:44 | Inpatient (IN) | payer SELFPAY ==
[2019-04-19] MEDS ORDERED: LORAZEPAM INJ 2 MG/1 ML VIAL IV ONE (23:48)
[2019-04-19] MEDS: VECURONIUM BROMIDE INJ 10 MG VIAL IV ONE (23:55)
[2019-04-20 00:02] LABS: ABSOLUTE EOSINOPHILS # (AUTO) 0.1 10^3/uL (0.0-0.6); ABSOLUTE LYMPHOCYTES (AUTO) 2.4 10^3/uL (0.5-4.7); ABSOLUTE MONOCYTES (AUTO) 0.4 10^3/uL (0.1-1.4); ABSOLUTE NEUT (AUTO) 2.2 10^3/uL (1.7-8.2); BASOPHILS % (AUTO) 0.9 % (0-2); EOSINOPHILS % (AUTO) 2.7 % (0-6); HEMATOCRIT 40.2 % (37.9-51.0); HEMOGLOBIN 13.5 g/dL (13.5-17.0); LYMPHOCYTES % (AUTO) 46.8 % (13-45); MEAN CORPUSCULAR HEMOGLOBIN 33.5 pg (27.0-33.4); MEAN CORPUSCULAR HGB CONC 33.7 g/dL (32.0-36.0); MEAN CORPUSCULAR VOLUME 100 fl (80-97); MONOCYTES % (AUTO) 6.9 % (3-13); PLATELET COUNT 185 10^3/uL (150-450); RED BLOOD COUNT 4.04 10^6/uL (4.35-5.55); RED CELL DISTRIBUTION WIDTH 14.2 % (11.5-14.0); SEGMENTED NEUTROPHILS % (AUTO) 42.7 % (42-78); TOTAL CELLS COUNTED % (AUTO) 100 %; WHITE BLOOD COUNT 5.2 10^3/uL (4.0-10.5)
[2019-04-20 00:22] LABS: ALBUMIN 3.3 g/dL (3.5-5.0); ALCOHOL 235 mg/dL (NONE DETECTED); ALKALINE PHOSPHATASE 67 U/L (38-126); ANION GAP 10 (5-19); ASPARTATE AMINO TRANSFERASE 27 U/L (17-59); BILIRUBIN,TOTAL 0.5 mg/dL (0.2-1.3); BLOOD UREA NITROGEN 5 mg/dL (7-20); CALCIUM 8.6 mg/dL (8.4-10.2); CARBON DIOXIDE 22 mmol/L (22-30); CHLORIDE 108 mmol/L (98-107); GLUCOSE 104 mg/dL (75-110); POTASSIUM 3.5 mmol/L (3.6-5.0); TOTAL PROTEIN 5.9 g/dL (6.3-8.2)
--- NOTE | 2019-04-20 00:22 | EKG REPORT ---
SEVERITY:- BORDERLINE ECG - SINUS TACHYCARDIA BORDERLINE PROLONGED QT INTERVAL LVH : Confirmed by: Catalino Hsu 20-Apr-2019 00:22:22
--- NOTE | 2019-04-20 00:24 | RADIOLOGY REPORT (SQ) ---
EXAM DESCRIPTION: XR CHEST 1 VIEW COMPLETED DATE/TME: 04/19/2019 23:49 CLINICAL HISTORY: 58 years, Male, post intubation COMPARISON: April 17, 2019 NUMBER OF VIEWS: Single TECHNIQUE: LIMITATIONS: None. FINDINGS: Cardiomediastinal silhouette is normal. Lungs are grossly clear. Endotracheal tube tip and nasogastric tube tip are in satisfactory position IMPRESSION: Lungs grossly clear. Satisfactory placement of supportive appliances copyright 2010 [employer]- All Rights Reserved
[2019-04-20 00:42] LABS: APPEARANCE,URINE CLEAR; BILIRUBIN,URINE NEGATIVE (NEGATIVE); COLOR,URINE STRAW; GLUCOSE, URINE NEGATIVE (NEGATIVE); KETONES,URINE NEGATIVE (NEGATIVE); LEUKOCYTE ESTERASE,URINE NEGATIVE (NEGATIVE); NITRITE,URINE NEGATIVE (NEGATIVE); PROTEIN,URINE 30 mg/dL (NEGATIVE); URINE SPECIFIC GRAVITY 1.004; UROBILINOGEN,URINE NEGATIVE mg/dL (<2.0)
[2019-04-20 00:44] LABS: URINE AMPHETAMINES SCREEN NEGATIVE; URINE BARBITURATES SCREEN NEGATIVE; URINE BENZODIAZEPINES SCREEN UNCONFIRMED POSITIVE; URINE COCAINE SCREEN NEGATIVE; URINE MARIJUANA (THC) SCREEN NEGATIVE; URINE METHADONE SCREEN NEGATIVE; URINE PHENCYCLIDINE SCREEN NEGATIVE
--- NOTE | 2019-04-20 00:53 | ER Document Report ---
Entered by ROMAIN KEMP SCRIBE 04/19/19 2440 Acting as scribe for:SALINA MANZO IV, MD ED General - General Stated Complaint: RESPIRATORY FAILURE Mode of Arrival: Medic Information source: Emergency Med Personnel Notes: This 58 year old male patient with a history of COPD, HTN, Asthma, and a WI brought in by EMS presents to the ED today with complaints of dyspnea that occurred prior to arrival per EMS. EMS states that the patient called 911 with complaints of difficulty breathing and that they found the patient laying on the floor beside the front door unresponsive. EMS reports that they intubated the patient RSI and administered a total of 5 mg Versed, 1 mg Epinephrine, and 120 mg Ketamine post intubation. TRAVEL OUTSIDE OF THE [place] IN LAST 30 DAYS: No - Related Data Allergies/Adverse Reactions: No Known Allergies Allergy (Verified 08/11/18 12:14) Past Medical History - General Information source: Emergency Med Personnel, COUNTS INCLUDE 234 BEDS AT THE [facility] Records - Social History Smoking Status: Unknown if Ever Smoked Cigarette use (# per day): No Chew tobacco use (# tins/day): No Smoking Education Provided: No Family History: Reviewed & Not Pertinent, CAD, DM, Hyperlipidemia, Hypertension, Malignancy - Past Medical History Cardiac Medical History: Reports: Hx Heart Attack, Hx Hypercholesterolemia, Hx Hypertension Pulmonary Medical History: Reports: Hx Asthma, Hx Bronchitis, Hx COPD, Hx Pneumonia Neurological Medical History: Reports: Hx Cerebrovascular Accident Endocrine Medical History: Reports: Hx Diabetes Mellitus Type 2 Musculoskeletal Medical History: Reports Hx Arthritis, Reports Hx Musculos keletal Trauma Skin Medical History: Reports Hx Cellulitis Traumatic Medical History: Reports: Hx Fractures - Right ankle and leg Past Surgical History: Reports: Hx Appendectomy, Hx Orthopedic Surgery - orif left leg - Immunizations Immunizations up to date: Yes Hx Diphtheria, Pertussis, Tetanus Vaccination: Yes - PT UNSURE Review of Systems - Review of Systems Constitutional: No symptoms reported EENT: No symptoms reported Cardiovascular: See HPI, Dyspnea Respiratory: No symptoms reported Gastrointestinal: No symptoms reported Genitourinary: No symptoms reported Musculoskeletal: No symptoms reported Skin: No symptoms reported Hematologic/Lymphatic: No symptoms reported Neurological/Psychological: See HPI, Other - Unresponsive -: Yes All other systems reviewed and negative Physical Exam - Vital signs Vitals: Pulse Ox 99 04/19/19 23:45 - General General appearance: Unresponsive, Other - Intubated - HEENT Head: Normocephalic, Atraumatic Eyes: Normal Pupils: PERRL - Respiratory Respiratory status: No respiratory distress Chest status: Nontender Breath sounds: Normal Chest palpation: Normal - Cardiovascular Rhythm: Regular Heart sounds: Normal auscultation Murmur: No - Abdominal Inspection: Normal Distension: No distension Bowel sounds: Normal Tenderness: Nontender - Abdomen soft Organomegaly: No organomegaly - Back Back: Normal, Nontender - Extremities General upper extremity: Normal inspection General lower extremity: Normal inspection - Neurological Neuro grossly intact: Yes - Psychological Associated symptoms: Other - Unresponsive - Skin Skin Temperature: Warm Skin Moisture: Dry Skin Color: Normal Course - Vital Signs Vital signs: Temp Pulse Resp BP Pulse Ox 94.2 F L 16 100/78 100 04/20/19 00:09 04/20/19 00:25 04/20/19 00:25 04/20/19 00:25 - Laboratory Result Diagrams: 04/19/19 23:45 04/19/19 23:45 Laboratory results interpreted by me: 04/19/19 04/19/19 04/20/19 23:45 23:45 00:11 RBC 4.04 L MCV 100 H MCH 33.5 H RDW 14.2 H Lymph % (Auto) 46.8 H Potassium 3.5 L Chloride 108 H BUN 5 L Total Protein 5.9 L Albumin 3.3 L Urine Protein 30 H - Consults DR. CABALLERO, W[facility] Time consulted: 01:44 - ACCEPTED PT Reason for consultation: 04/20/19 01:45 RESPIRATORY FAILURE Consulted provider: will see as inpatient Critical Care Note - Critical Care Note Total time excluding time spent on procedures (mins): 30 Discharge - Discharge Clinical Impression: Acute respiratory failure Qualifiers: Respiratory failure complication: unspecified whether with hypoxia or hypercapnia Qualified Code(s): J96.00 - Acute respiratory failure, unspecified whether with hypoxia or hypercapnia Alcohol intoxication Qualifiers: Complication of substance-induced condition: with unspecified complication Qualified Code(s): F10.929 - Alcohol use, unspecified with intoxication, unspecified Condition: Critical Disposition: ADMITTED INPATIENT Admitting Provider: [facility]) Unit Admitted: ICU I personally performed the services described in the documentation, reviewed and edited the documentation which was dictated to the scribe in my presence, and it accurately records my words and actions.
[2019-04-20] MEDS ORDERED: MIDAZOLAM 2 MG/2 ML INJ IV ONE (01:07)
[2019-04-20] MEDS ORDERED: MIDAZOLAM 2 MG/2 ML INJ ONE (01:08)
[2019-04-20] MEDS: MIDAZOLAM HCL 50 MG/100 ML RTUINJ IV PRN ×2 (01:15→06:48)
[2019-04-20] MEDS: VECURONIUM BROMIDE INJ 10 MG VIAL IV ONE (01:29)
[2019-04-20 01:54] LABS: ARTERIAL BLOOD BASE EXCESS -2.7 mmol/L; ARTERIAL BLOOD H2CO3 1.35 mmol/L (1.05-1.35); ARTERIAL BLOOD HCO3 23.3 mmol/L (20-24); ARTERIAL BLOOD O2 SATURATION 94.5 % (94-98); ARTERIAL BLOOD PCO2 44.7 mmHg (35-45); ARTERIAL BLOOD PH 7.33 (7.35-7.45); ARTERIAL BLOOD PO2 76.8 mmHg (80-100); ARTERIAL BLOOD TOTAL CO2 24.6 mmol/L (23-27)
[2019-04-20 01:55] LABS: ARTERIAL BLOOD FIO2 60%
[2019-04-20] MEDS ORDERED: VECURONIUM BROMIDE INJ 10 MG VIAL IV ONE (02:10)
--- NOTE | 2019-04-20 03:18 | RADIOLOGY REPORT (SQ) ---
CT angiogram chest with contrast on 04/20/2019 at 2:38 AM CLINICAL INDICATION: Acute respiratory failure TECHNIQUE: Multiple axial images are obtained throughout the chest following the administration of IV contrast. Computer generated 3D reconstructions/MIPS were performed. 60 mL of Omnipaque 350 contrast was administered intravenously. This exam was performed according to our departmental dose-optimization program, which includes automated exposure control, adjustment of the mA and/or kV according to patient size and/or use of iterative reconstruction technique. Total DLP is 579.38 mGy*cm. COMPARISON: 03/16/2019 FINDINGS: ET tube tip is in the mid thoracic trachea. NG tube extends into the upper stomach. Limited visualized upper abdomen is unremarkable. Bolus timing is suboptimal for evaluation of pulmonary embolus as this is much more of an aortic arterial exam. Coronary artery calcifications are noted. There is no thoracic aortic aneurysm or dissection. There is no pleural or pericardial effusion. There is no thoracic adenopathy. No large or central filling defect is noted in the pulmonary arteries to suggest pulmonary emboli. No definite pulmonary emboli are noted but would be difficult to fully exclude small peripheral pulmonary emboli from this exam. Minimal biapical scarring is noted. There is mild bilateral lower lung atelectasis. There are multiple small bilateral pulmonary nodules greatest in the right upper lobe and superior segment of the right lower lobe, these are all very similar in size with the largest likely on axial image 49 of series 3 in the superior segment of the right lower lobe measuring 4 mm. These are new compared with an old exam from 11/06/2010 but appears stable when compared with the more recent prior exam. Per Fleischner Society recommendations [address] follow-up in one year. Lungs are otherwise clear. Degenerative changes are noted in the spine. IMPRESSION: 1. Bolus timing is suboptimal for evaluation of pulmonary embolus with no evidence of a large or central pulmonary embolus and no definite pulmonary emboli on this exam but would be difficult to fully exclude small peripheral pulmonary emboli from this exam. 2. Mild bilateral lower lung atelectasis. 3. Several less than 5 mm bilateral pulmonary nodules, as above consider optional CT follow-up in one year.
--- NOTE | 2019-04-20 03:32 | CRITICAL CARE ADMISSION REPORT ---
HPI Date:: 04/20/19 Time:: 02:30 Reason for ICU Reason:: Respiratory Failure HPI: 58-year-old male history of COPD, EtOH abuse, hypertension asthma and PR. Recent CT scan February of last year shows a small nodule versus scarring pending further work-up. He has had multiple admissions with similar symptoms. Patient called EMS for severe shortness of breath. Upon arrival, EMS discovered patient with agonal breathing and he was intubated. Urine tox being was posi tive for alcohol and benzodiazepines. CT scan performed prior to admission to ICU. Results pending. No signs of cardiac etiology contributing to shortness of breath. History obtained from:: Medical record - Diagnosis/Plan (1) Acute respiratory failure Qualifiers: Respiratory failure complication: unspecified whether with hypoxia or hypercapnia Qualified Code(s): J96.00 - Acute respiratory failure, unspecified whether with hypoxia or hypercapnia Is this a current diagnosis for this admission?: Yes Plan: It is unclear precisely how long patient was hypoxemic prior to intubation. Given his frequent admissions with similar symptoms, we will acutely treat empirically for COPD exacerbation. Continue current vent settings. Adjust according to ABG. Wean FiO2 to maintain SPO2 between 90 to 95%. (2) Alcohol intoxication Qualifiers: Complication of substance-induced condition: with unspecified complication Qualified Code(s): F10.929 - Alcohol use, unspecified with intoxication, unspecified Is this a current diagnosis for this admission?: Yes Plan: Patient at risk for alcohol withdrawal given his known heavy alcohol use. Monitor for signs of withdrawal. Continue Versed drip for now. (3) COPD exacerbation Is this a current diagnosis for this admission?: Yes Plan: Start Solu-Medrol, doxycycline, duo nebs every 4. - . Plan Summary: Patient with acute respiratory failure. CT scan pending to rule out PE. This most likely represents an acute COPD exacerbation will be treated with IV antibiotics, IV Solu-Medrol and short acting bronchodilators. Plan will be to wean sedation and wean ventilator as tolerated. Past Medical History Cardiac Medical History: Reports: Myocardial Infarction, Hyperlipidema, Hypertension Pulmonary Medical History: Reports: Asthma, Bronchitis, Chronic Obstructive Pulmonary Disease (COPD), Pneumonia Pulmonary History Note: With multiple admissions for COPD exacerbation. Endocrine Medical History: Reports: Diabetes Mellitus Type 2 Malignancy History Note: 1, confirmed malignancy, however, patient has a CT scan in February which shows a suspicious marking on his right upper lobe. Patient is currently pending 6- month follow-up CT. Musculoskeltal Medical History: Reports: Arthritis Past Surgical History Past Surgical History: Reports: Appendectomy, Orthopedic Surgery - orif left leg Social/Family History - Social History Smoking Status: Smoker,Current Status Unk Frequency of Alcohol Use: Occasional Last Alcohol Use: 04/20/19 Hx Recreational Drug Use: No Drugs: None, Other - Urine toxicology positive for benzodiazepines. Hx Prescription Drug Abuse: No - Medication/Allergies Home Medications: Aspirin [Aspir-Low] 81 mg PO DAILY 03/16/19 Fluticasone Propion/Salmeterol [Advair HFA 115-21 mcg Inhaler] 1 puff IH BID #1 mdi 03/18/19 Ipratropium/Albuterol Sulfate [Duoneb 3 ml Ampul] 3 ml NEB [id number] PRN #30 vial.neb 03/18/19 Prednisone [Deltasone 20 mg Tablet] 20 mg PO BID 5 Days #10 tablet 03/18/19 Tiotropium [place] [Spiriva Handihaler 5 Cap/Kit (18 Mcg/Cap)] 1 cap IH DAILY #30 capsule 03/18/19 Albuterol Sulfate [Proair HFA Inhalation Aerosol 8.5 gm MDI] 2 puff IH Q4H PRN #1 mdi 04/17/19 Cephalexin Monohydrate [Keflex 500 mg Capsule] 500 mg PO TID #30 capsule 04/17/19 Prednisone 10 mg PO 12 #1 tab.ds.pk 04/17/19 Allergies/Adverse Reactions: No Known Allergies Allergy (Verified 08/11/18 12:14) Review of Systems ROS unobtainable: Due to endotracheal tube - No family available for interview. Patient is sedated and on mechanical ventilation. Unable to obtain review of systems. Physical Exam Vital Signs: Temp Pulse Resp BP Pulse Ox 96.9 F L 16 128/93 H 98 04/20/19 01:50 04/20/19 01:50 04/20/19 01:41 04/20/19 01:50 Intake & Output 04/18/19 04/19/19 04/20/19 06:59 06:59 06:59 Intake Total 14 Balance 14 Exam: Intubated and sedated. In no distress. Respiratory exam: PRESENT: decreased breath sounds. ABSENT: rhonchi, wheezes Cardiovascular exam: PRESENT: RRR, +S1, +S2 Pulses: PRESENT: +2 pedal pulses bilateral Vascular exam: PRESENT: normal capillary refill GI/Abdominal exam: PRESENT: hypoactive bowel sounds, soft. ABSENT: ascites, dis tended, mass, rigid Neurological exam: PRESENT: CN II-XII grossly intact, other - Dated on Versed drip Tubes/Lines: PRESENT: Endotracheal Tube Laboratory/Radiographs Laboratory Results: 04/19/19 23:45 04/19/19 23:45 04/19/19 04/19/19 04/20/19 23:45 23:45 00:11 WBC 5.2 RBC 4.04 L Hgb 13.5 Hct 40.2 MCV 100 H MCH 33.5 H MCHC 33.7 RDW 14.2 H Plt Count 185 Seg Neutrophils % 42.7 Carbonic Acid HCO3/H2CO3 Ratio ABG pH ABG pCO2 ABG pO2 ABG HCO3 ABG O2 Saturation ABG Base Excess FiO2 Sodium 140.2 Potassium 3.5 L Chloride 108 H Carbon Dioxide 22 Anion Gap 10 BUN 5 L Creatinine 0.66 Est GFR ( Amer) > 60 Glucose 104 Calcium 8.6 Total Bilirubin 0.5 AST 27 Alkaline Phosphatase 67 Total Protein 5.9 L Albumin 3.3 L Urine Color STRAW Urine Appearance CLEAR Urine pH 7.0 Ur Specific [place] 1.004 Urine Protein 30 H Urine Glucose (UA) NEGATIVE Urine Ketones NEGATIVE Urine Blood NEGATIVE Urine Nitrite NEGATIVE Ur Leukocyte Esterase NEGATIVE Urine WBC (Auto) 1 Urine RBC (Auto) 0 04/20/19 01:14 WBC RBC Hgb Hct MCV MCH MCHC RDW Plt Count Seg Neutrophils % Carbonic Acid 1.35 HCO3/H2CO3 Ratio 17:1 ABG pH 7.33 L ABG pCO2 44.7 ABG pO2 76.8 L ABG HCO3 23.3 ABG O2 Saturation 94.5 ABG Base Excess -2.7 FiO2 60% Sodium Potassium Chloride Carbon Dioxide Anion Gap BUN Creatinine Est GFR ( Amer) Glucose Calcium Total Bilirubin AST Alkaline Phosphatase Total Protein Albumin Urine Color Urine Appearance Urine pH Ur Specific [place] Urine Protein Urine Glucose (UA) Urine Ketones Urine Blood Urine Nitrite Ur Leukocyte Esterase Urine WBC (Auto) Urine RBC (Auto) 04/19/19 04/19/19 23:45 23:45 Troponin I < 0.012 NT-Pro-B Natriuret Pep 37 Impressions: Chest X-Ray 04/19/19 23:49 IMPRESSION: Lungs grossly clear. Satisfactory placement of supportive appliances copyright 2010 [employer]- All Rights Reserved All labs, radiographs, diagnostic studies and EKGs were personally reviewed: Yes In addition, reports of radiographic and diagnostic studies were read: Yes Critical Time Critical Time (minutes): 65 -: The care of a critically ill patient is dynamic. This note represents a static moment in the admission process. Orders and treatments may be given simultaneously and urgently, and time is not sales representative graphic art of the treatment process. This patient requires Critical Care secondary to life threatening organ or limb dysfunction. Without Critical Care services, the patient is at risk for increased mortality and morbidity.
[2019-04-20] MEDS ORDERED: DOXYCYCLINE HYCLATE INJ 100 MG VIAL IV ONE (03:35)
[2019-04-20] MEDS: RINGERS SOLUTION,LACTATED 1,000 ML IV PRN (03:40)
[2019-04-20] MEDS ORDERED: DOXYCYCLINE HYCLATE INJ 100 MG VIAL ONE (04:10)
[2019-04-20] MEDS: IPRATROPIUM/ALBUTEROL 0.5-2.5 MG/3 ML AMPUL NEB SCH ×6 (04:33→23:52)
[2019-04-20] MEDS: METHYLPREDNISOLONE INJ 125 MG/2 ML SDV IV SCH ×2 (05:21→17:47)
[2019-04-20] MEDS: ASPIRIN 81 MG TABLET, CHEWABLE PO SCH (09:58)
--- NOTE | 2019-04-20 12:55 | PDOC CRITICAL CARE PROG REPORT ---
General Date:: 04/20/19 ICU Day:: 2 Ventilator Day:: 2 Hospital Day:: 2 Resuscitation Status: Full Code Events in the past 12 to 24 Hours:: Extubated Review of systems relevant to events:: Neorological and respiratory. Reason for ICU Addmission:: Respiratory Failure and on ventilator. - Medications: Medications reviewed and adjusted accordingly: Yes Vasopressors:: None Sedation:: None Physical Exam Vital Signs: Temp Pulse Resp BP Pulse Ox 99.1 F 92 14 127/80 H 100 04/20/19 12:30 04/20/19 12:16 04/20/19 12:16 04/20/19 12:30 04/20/19 12:30 Intake & Output 04/19/19 04/20/19 04/21/19 06:59 06:59 06:59 Intake Total 99 41 Output Total 350 100 Balance -251 -59 Weight 67.3 kg Weight/Height Weight 67.3 kg Height 5 ft 10 in General appearance: PRESENT: no acute distress, disheveled, thin Head exam: PRESENT: atraumatic, normocephalic Eye exam: PRESENT: conjunctiva pink, EOMI, PERRLA. ABSENT: scleral icterus Ear exam: PRESENT: normal external ear exam Mouth exam: PRESENT: moist, tongue midline Respiratory exam: PRESENT: clear to auscultation jazmine. ABSENT: rales, rhonchi, wheezes Cardiovascular exam: PRESENT: RRR. ABSENT: diastolic murmur, rubs, systolic murmur GI/Abdominal exam: PRESENT: normal bowel sounds, soft. ABSENT: distended, guarding, mass, organolmegaly, rebound, tenderness Rectal exam: PRESENT: deferred Gentrourinary exam: PRESENT: indwelling catheter Musculoskeletal exam: PRESENT: normal inspection Neurological exam: PRESENT: altered Skin exam: PRESENT: dry, intact, warm. ABSENT: cyanosis, rash Laboratory/Radiographs Laboratory Results: 04/19/19 23:45 04/19/19 23:45 04/19/19 04/19/19 04/20/19 23:45 23:45 00:11 WBC 5.2 RBC 4.04 L Hgb 13.5 Hct 40.2 MCV 100 H MCH 33.5 H MCHC 33.7 RDW 14.2 H Plt Count 185 Seg Neutrophils % 42.7 Carbonic Acid HCO3/H2CO3 Ratio ABG pH ABG pCO2 ABG pO2 ABG HCO3 ABG O2 Saturation ABG Base Excess FiO2 Sodium 140.2 Potassium 3.5 L Chloride 108 H Carbon Dioxide 22 Anion Gap 10 BUN 5 L Creatinine 0.66 Est GFR ( Amer) > 60 Glucose 104 Calcium 8.6 Total Bilirubin 0.5 AST 27 Alkaline Phosphatase 67 Total Protein 5.9 L Albumin 3.3 L Urine Color STRAW Urine Appearance CLEAR Urine pH 7.0 Ur Specific [place] 1.004 Urine Protein 30 H Urine Glucose (UA) NEGATIVE Urine Ketones NEGATIVE Urine Blood NEGATIVE Urine Nitrite NEGATIVE Ur Leukocyte Esterase NEGATIVE Urine WBC (Auto) 1 Urine RBC (Auto) 0 04/20/19 01:14 WBC RBC Hgb Hct MCV MCH MCHC RDW Plt Count Seg Neutrophils % Carbonic Acid 1.35 HCO3/H2CO3 Ratio 17:1 ABG pH 7.33 L ABG pCO2 44.7 ABG pO2 76.8 L ABG HCO3 23.3 ABG O2 Saturation 94.5 ABG Base Excess -2.7 FiO2 60% Sodium Potassium Chloride Carbon Dioxide Anion Gap BUN Creatinine Est GFR ( Amer) Glucose Calcium Total Bilirubin AST Alkaline Phosphatase Total Protein Albumin Urine Color Urine Appearance Urine pH Ur Specific [place] Urine Protein Urine Glucose (UA) Urine Ketones Urine Blood Urine Nitrite Ur Leukocyte Esterase Urine WBC (Auto) Urine RBC (Auto) 04/19/19 04/19/19 23:45 23:45 Troponin I < 0.012 NT-Pro-B Natriuret Pep 37 Impressions: Chest X-Ray 04/19/19 23:49 IMPRESSION: Lungs grossly clear. Satisfactory placement of supportive appliances copyright 2011 [employer]- All Rights Reserved Chest/Abdomen CTA 04/20/19 01:49 IMPRESSION: 1. Bolus timing is suboptimal for evaluation of pulmonary embolus with no evidence of a large or central pulmonary embolus and no definite pulmonary emboli on this exam but would be difficult to fully exclude small peripheral pulmonary emboli from this exam. 2. Mild bilateral lower lung atelectasis. 3. Several less than 5 mm bilateral pulmonary nodules, as above consider optional CT follow-up in one year. All labs, radiographs, diagnostic studies and EKGs were personally reviewed: Yes In addition, reports of radiographic and diagnostic studies were read: Yes Assessment and Plan - Diagnosis (1) Acute respiratory failure Qualifiers: Respiratory failure complication: hypoxia Qualified Code(s): J96.01 - Acute respiratory failure with hypoxia Is this a current diagnosis for this admission?: Yes Plan: This is presumed hypoxia by EMS impression. Patient was intubated on arrival at ED and not hypoxic. (2) COPD (chronic obstructive pulmonary disease) Qualifiers: COPD type: emphysema Emphysema type: centrilobular Qualified Code(s): J43.2 - Centrilobular emphysema Is this a current diagnosis for this admission?: Yes Plan: Certainly this is making his respiratory status more tenous and intubation more likely. (3) Alcohol abuse Is this a current diagnosis for this admission?: Yes Plan: A definite history contributing to current status. ETOH at presentation 235. Plan Summary: Extubated and needs to improve mental status. Watch for alcohol WD. Critical Time Critical Time (minutes): 35 Level of Care: ICU Anticipated discharge: Home Within: within 72 hours -: 1. The care of a critical patient is a dynamic process. This note is a medical billing representative synopsis but static in nature. The timeframe for treatments given in order is not necessarily the actual time these treatments may have been done. 2. This patient requires critical care secondary to ongoing requirements for therapy not offered or safe outside the critical care environment. Transfer to a lower level of care will result in altered life or limb morbidity and mortality. 3. Multidisciplinary rounds completed. 4. ABCDE bundle addressed.
[2019-04-20] MEDS ORDERED: GLUCAGON,HUMAN RECOMB 1 MG INJ SUBCUT PRN (20:52)
[2019-04-20] MEDS ORDERED: DEXTROSE 50%-WATER 25 GM/50 ML DISP.SYRIN IV PRN ×2 (20:52)
[2019-04-20] MEDS ORDERED: DEXTROSE 40% GEL 15 GM TUBE PO PRN ×2 (20:52)
[2019-04-21] MEDS: IPRATROPIUM/ALBUTEROL 0.5-2.5 MG/3 ML AMPUL NEB SCH ×4 (04:56→16:07)
[2019-04-21] MEDS ORDERED: METHYLPREDNISOLONE INJ 125 MG/2 ML SDV IV SCH (05:00)
[2019-04-21] MEDS: ACETAMINOPHEN 325 MG TABLET PO PRN ×2 (05:37→12:55)
[2019-04-21] MEDS: RINGERS SOLUTION,LACTATED 1,000 ML IV PRN ×2 (06:18→22:19)
[2019-04-21] MEDS: ASPIRIN 81 MG TABLET, CHEWABLE PO SCH (09:19)
[2019-04-21] MEDS: DOXYCYCLINE HYCLATE 100 MG TABLET PO SCH (09:19)
--- NOTE | 2019-04-21 15:57 | PDOC CRITICAL CARE PROG REPORT ---
General Date:: 04/21/19 Hospital Day:: 2 Resuscitation Status: Full Code Events in the past 12 to 24 Hours:: More awake and breathing easier. Review of systems relevant to events:: Respiratory Reason for ICU Addmission:: Respiratory Failure and on ventilator. - Medications: Medications reviewed and adjusted accordingly: Yes Vasopressors:: None Sedation:: None Physical Exam Vital Signs: Temp Pulse Resp BP Pulse Ox 100.5 F H 91 17 122/69 98 04/21/19 12:00 04/21/19 14:00 04/21/19 14:00 04/21/19 14:00 04/21/19 14:00 Intake & Output 04/20/19 04/21/19 04/22/19 06:59 06:59 06:59 Intake Total 99 1700 Output Total 350 2385 250 Balance -251 -685 -250 Weight 67.3 kg 68.1 kg Weight/Height Weight 68.1 kg Height 5 ft 10 in General appearance: PRESENT: no acute distress, well-developed, well-nourished Head exam: PRESENT: atraumatic, normocephalic Eye exam: PRESENT: conjunctiva pink, EOMI, PERRLA. ABSENT: scleral icterus Ear exam: PRESENT: normal external ear exam Mouth exam: PRESENT: moist, tongue midline Respiratory exam: PRESENT: clear to auscultation jazmine, decreased breath sounds. ABSENT: rales, rhonchi, wheezes Cardiovascular exam: PRESENT: RRR. ABSENT: diastolic murmur, rubs, systolic murmur GI/Abdominal exam: PRESENT: normal bowel sounds, soft. ABSENT: distended, guarding, mass, organolmegaly, rebound, tenderness Rectal exam: PRESENT: deferred Extremities exam: PRESENT: full ROM. ABSENT: calf tenderness, clubbing, pedal edema Musculoskeletal exam: PRESENT: full ROM, normal inspection Neurological exam: PRESENT: alert, awake, oriented to person, oriented to place, oriented to time, oriented to situation, CN II-XII grossly intact. ABSENT: motor sensory deficit Skin exam: PRESENT: dry, intact, warm. ABSENT: cyanosis, rash Laboratory/Radiographs Laboratory Results: 04/19/19 23:45 04/19/19 23:45 04/19/19 04/19/19 23:45 23:45 Troponin I < 0.012 NT-Pro-B Natriuret Pep 37 Impressions: Chest X-Ray 04/19/19 23:49 IMPRESSION: Lungs grossly clear. Satisfactory placement of supportive appliances copyright 2010 [employer]- All Rights Reserved Chest/Abdomen CTA 04/20/19 01:49 IMPRESSION: 1. Bolus timing is suboptimal for evaluation of pulmonary embolus with no evidence of a large or central pulmonary embolus and no definite pulmonary emboli on this exam but would be difficult to fully exclude small peripheral pulmonary emboli from this exam. 2. Mild bilateral lower lung atelectasis. 3. Several less than 5 mm bilateral pulmonary nodules, as above consider optional CT follow-up in one year. All labs, radiographs, diagnostic studies and EKGs were personally reviewed: Yes In addition, reports of radiographic and diagnostic studies were read: Yes Assessment and Plan - Diagnosis (1) Acute respiratory failure Qualifiers: Respiratory failure complication: hypoxia Qualified Code(s): J96.01 - Acute respiratory failure with hypoxia Is this a current diagnosis for this admission?: Yes Plan: Resolved (2) COPD (chronic obstructive pulmonary disease) Qualifiers: COPD type: emphysema Emphysema type: centrilobular Qualified Code(s): J43.2 - Centrilobular emphysema Is this a current diagnosis for this admission?: Yes Plan: Not very active but he is in some SOB with activity. (3) Alcohol abuse Is this a current diagnosis for this admission?: Yes Plan: No signs of WD (4) Muscular deconditioning Is this a current diagnosis for this admission?: Yes Plan: Get PT involved to mobilize. Plan Summary: Get PT involved. Mobilize more before discharge home. Critical Time Critical Time (minutes): 30 Level of Care: MEDICAL Anticipated discharge: Home Within: within 48 hours -: 1. The care of a critical patient is a dynamic process. This note is a member services representative synopsis but static in nature. The timeframe for treatments given in order is not necessarily the actual time these treatments may have been done. 2. This patient requires critical care secondary to ongoing requirements for therapy not offered or safe outside the critical care environment. Transfer to a lower level of care will result in altered life or limb morbidity and mortality. 3. Multidisciplinary rounds completed. 4. ABCDE bundle addressed.
[2019-04-21] MEDS ORDERED: IPRATROPIUM/ALBUTEROL 0.5-2.5 MG/3 ML AMPUL NEB PRN (16:07)
--- NOTE | 2019-04-21 18:51 | Progress Note ---
Provider Note Provider Note: ICU to hospitalist transfer Received signout from stage builder Dr Hull. Briefly, patient is a 58-year-old male with a history of COPD who was recently admitted to the ICU for COPD exacerbation. Patient was briefly intubated and extubated by the next day. Patient has been treated for COPD with frequent inhalers and steroids. Currently on prednisone. Patient subsequently downgraded to the [facility] floor. Apparently patient had some dizziness when he ambulated today and as such discharge was delayed and patient was transferred to the floor to improve his conditioning prior to discharge. Chart reviewed. Notably patient had a one- time low-grade fever of 100.5F. Per signout from stage builder, currently there is no other source of infection and was started on doxycycline for tooth infection. Other vitals are stable. Patient appears comfortable at this time of my encounter with patient. Patient denies any abdominal pain, urinary symptoms, but endorses mild cough. States that his breathing is well. Denies chest pain. Lungs are clear bilaterally without any wheezing. Will continue current treatment for COPD exacerbation. If patient spikes another fever, will need to repeat chest imaging, perform urinalysis and obtain blood cultures.
[2019-04-22] MEDS: DOXYCYCLINE HYCLATE 100 MG TABLET PO SCH (09:49)
[2019-04-22] MEDS ORDERED: ASPIRIN 81 MG TABLET, ENT COATED PO SCH (10:00)
[2019-04-22] MEDS ORDERED: PREDNISONE 20 MG TABLET PO SCH (10:00)
[2019-04-22] MEDS: RINGERS SOLUTION,LACTATED 1,000 ML IV PRN (10:56)
--- NOTE | 2019-04-22 16:04 | PDOC DISCHARGE SUMMARY ---
Impression - Admit/DC Date/PCP Admission Date/Primary Care Provider: 04/20/19 02:09 Discharge Date: 04/22/19 - Discharge Diagnosis (1) Acute respiratory failure Is this a current diagnosis for this admission?: Yes (2) Alcohol intoxication Is this a current diagnosis for this admission?: Yes (3) COPD (chronic obstructive pulmonary disease) Is this a current diagnosis for this admission?: Yes (4) Muscular deconditioning Is this a current diagnosis for this admission?: Yes (5) Pulmonary nodules Is this a current diagnosis for this admission?: Yes - Additional Information Resuscitation Status: Full Code Discharge Diet: Regular Discharge Activity: Activity As Tolerated Referrals: [facility] [Outside] Prescriptions: Prednisone [Deltasone 20 mg Tablet] 40 mg PO DAILY #5 tablet Doxycycline Hyclate [Vibramycin 100 mg Tablet] 100 mg PO DAILY 5 Days #5 tablet Home Medications: Aspirin [Aspir-Low] 81 mg PO DAILY 03/16/19 Doxycycline Hyclate [Vibramycin 100 mg Tablet] 100 mg PO DAILY 5 Days #5 tablet 04/22/19 Prednisone [Deltasone 20 mg Tablet] 40 mg PO DAILY #5 tablet 04/22/19 History of Present Illiness History of Present Illness: ERYN BARLOW is a 58 year old male Patient was admitted with difficulty breathing and shortness of breath. He was found to have agonal breathing and he was intubated. Please see admitting history and physical for full details Hospital Course Hospital Course: Patient was also found to be positive for alcohol and benzodiazepines on toxicology screen. He was admitted to the intensive care unit. He was managed by the tent worker. Patient was subsequently extubated and he appears to have been hemodynamically stable. He was sent up to the medical unit as he was found to be physically weak and deconditioned. He however did ambulate with physical therapy today and it is felt that he could be discharged home in stable condition. There is no evidence of alcohol withdrawal while in hospital Outpatient follow-up of several pulmonary nodules less than 5mm with imaging studies suggested as per Iris criteria Physical Exam Vital Signs: Temp Pulse Resp BP Pulse Ox 97.8 F 70 16 119/70 98 04/22/19 10:58 04/22/19 10:58 04/22/19 10:58 04/22/19 10:58 04/22/19 10:58 Intake & Output 04/21/19 04/22/19 04/23/19 06:59 06:59 06:59 Intake Total 1700 1380 946 Output Total 2385 1100 Balance -685 280 946 Weight 68.1 kg 69.6 kg General appearance: PRESENT: no acute distress, well-developed, well-nourished Head exam: PRESENT: atraumatic, normocephalic Eye exam: PRESENT: conjunctiva pink, EOMI, PERRLA. ABSENT: scleral icterus Ear exam: PRESENT: normal external ear exam Mouth exam: PRESENT: moist, tongue midline Neck exam: ABSENT: carotid bruit, JVD, lymphadenopathy, thyromegaly Respiratory exam: PRESENT: clear to auscultation jazmine. ABSENT: rales, rhonchi, wheezes Cardiovascular exam: PRESENT: RRR. ABSENT: diastolic murmur, rubs, systolic murmur Pulses: PRESENT: normal dorsalis pedis pul Vascular exam: PRESENT: normal capillary refill GI/Abdominal exam: PRESENT: normal bowel sounds, soft. ABSENT: distended, guarding, mass, organolmegaly, rebound, tenderness Rectal exam: PRESENT: deferred Extremities exam: PRESENT: full ROM. ABSENT: calf tenderness, clubbing, pedal edema Neurological exam: PRESENT: alert, awake, oriented to person, oriented to place, oriented to time, oriented to situation, CN II-XII grossly intact. ABSENT: motor sensory deficit Psychiatric exam: PRESENT: appropriate affect, normal mood. ABSENT: homicidal ideation, suicidal ideation Skin exam: PRESENT: dry, intact, warm. ABSENT: cyanosis, rash Results Laboratory Results: WBC 5.2 10^3/uL (4.0-10.5) 04/19/19 23:45 RBC 4.04 10^6/uL (4.35-5.55) L 04/19/19 23:45 Hgb 13.5 g/dL (13.5-17.0) 04/19/19 23:45 Hct 40.2 % (37.9-51.0) 04/19/19 23:45 MCV 100 fl (80-97) H 04/19/19 23:45 MCH 33.5 pg (27.0-33.4) H 04/19/19 23:45 MCHC 33.7 g/dL (32.0-36.0) 04/19/19 23:45 RDW 14.2 % (11.5-14.0) H 04/19/19 23:45 Plt Count 185 10^3/uL (150-450) 04/19/19 23:45 Lymph % (Auto) 46.8 % (13-45) H 04/19/19 23:45 [place] % (Auto) 6.9 % (3-13) 04/19/19 23:45 Eos % (Auto) 2.7 % (0-6) 04/19/19 23:45 Baso % (Auto) 0.9 % (0-2) 04/19/19 23:45 Absolute Neuts (auto) 2.2 10^3/uL (1.7-8.2) 04/19/19 23:45 Absolute Lymphs (auto) 2.4 10^3/uL (0.5-4.7) 04/19/19 23:45 Absolute Monos (auto) 0.4 10^3/uL (0.1-1.4) 04/19/19 23:45 Absolute Eos (auto) 0.1 10^3/uL (0.0-0.6) 04/19/19 23:45 Absolute Basos (auto) 0.0 10^3/uL (0.0-0.2) 04/19/19 23:45 Seg Neutrophils % 42.7 % (42-78) 04/19/19 23:45 Carbonic Acid 1.35 mmol/L (1.05-1.35) 04/20/19 01:14 HCO3/H2CO3 Ratio 17:1 04/20/19 01:14 ABG pH 7.33 (7.35-7.45) L 04/20/19 01:14 ABG pCO2 44.7 mmHg (35-45) 04/20/19 01:14 ABG pO2 76.8 mmHg (80-100) L 04/20/19 01:14 ABG HCO3 23.3 mmol/L (20-24) 04/20/19 01:14 ABG Total CO2 24.6 mmol/L (23-27) 04/20/19 01:14 ABG O2 Saturation 94.5 % (94-98) 04/20/19 01:14 ABG Base Excess -2.7 mmol/L 04/20/19 01:14 FiO2 60% 04/20/19 01:14 Sodium 140.2 mmol/L (137-145) 04/19/19 23:45 Potassium 3.5 mmol/L (3.6-5.0) L 04/19/19 23:45 Chloride 108 mmol/L (98-107) H 04/19/19 23:45 Carbon Dioxide 22 mmol/L (22-30) 04/19/19 23:45 Anion Gap 10 (5-19) 04/19/19 23:45 BUN 5 mg/dL (7-20) L 04/19/19 23:45 Creatinine 0.66 mg/dL (0.52-1.25) 04/19/19 23:45 Est GFR ( Amer) > 60 (>60) 04/19/19 23:45 Est GFR (MDRD) Non-Af > 60 (>60) 04/19/19 23:45 Glucose 104 mg/dL (75-110) 04/19/19 23:45 POC Glucose 101 mg/dL (70-110) 04/20/19 06:13 Calcium 8.6 mg/dL (8.4-10.2) 04/19/19 23:45 Total Bilirubin 0.5 mg/dL (0.2-1.3) 04/19/19 23:45 Direct Bilirubin 0.0 mg/dL (0.0-0.4) 04/19/19 23:45 Neonat Total Bilirubin Not Reportable 04/19/19 23:45 Neonat Direct Bilirubin Not Reportable 04/19/19 23:45 Neonat Indirect Bili Not Reportable 04/19/19 23:45 AST 27 U/L (17-59) 04/19/19 23:45 ALT 16 U/L (<50) 04/19/19 23:45 Alkaline Phosphatase 67 U/L (38-126) 04/19/19 23:45 Troponin I < 0.012 ng/mL 04/19/19 23:45 NT-Pro-B Natriuret Pep 37 pg/mL (<125) 04/19/19 23:45 Total Protein 5.9 g/dL (6.3-8.2) L 04/19/19 23:45 Albumin 3.3 g/dL (3.5-5.0) L 04/19/19 23:45 Urine Color STRAW 04/20/19 00:11 Urine Appearance CLEAR 04/20/19 00:11 Urine pH 7.0 (5.0-9.0) 04/20/19 00:11 Ur Specific [place] 1.004 04/20/19 00:11 Urine Protein 30 mg/dL (NEGATIVE) H 04/20/19 00:11 Urine Glucose (UA) NEGATIVE mg/dL (NEGATIVE) 04/20/19 00:11 Urine Ketones NEGATIVE mg/dL (NEGATIVE) 04/20/19 00:11 Urine Blood NEGATIVE (NEGATIVE) 04/20/19 00:11 Urine Nitrite NEGATIVE (NEGATIVE) 04/20/19 00:11 Urine Bilirubin NEGATIVE (NEGATIVE) 04/20/19 00:11 Urine Urobilinogen NEGATIVE mg/dL (<2.0) 04/20/19 00:11 Ur Leukocyte Esterase NEGATIVE (NEGATIVE) 04/20/19 00:11 Urine WBC (Auto) 1 /HPF 04/20/19 00:11 Urine RBC (Auto) 0 /HPF 04/20/19 00:11 U Hyaline Cast (Auto) 1 /LPF 04/20/19 00:11 Urine Mucus (Auto) RARE /LPF 04/20/19 00:11 Urine Ascorbic Acid NEGATIVE (NEGATIVE) 04/20/19 00:11 Urine Opiates Screen NEGATIVE 04/20/19 00:11 Urine Methadone Screen NEGATIVE 04/20/19 00:11 Ur Barbiturates Screen NEGATIVE 04/20/19 00:11 Ur Phencyclidine Scrn NEGATIVE 04/20/19 00:11 Ur Amphetamines Screen NEGATIVE 04/20/19 00:11 U Benzodiazepines Scrn UNCONFIRMED POSITIVE 04/20/19 00:11 Urine Cocaine Screen NEGATIVE 04/20/19 00:11 U Marijuana (THC) Screen NEGATIVE 04/20/19 00:11 Serum Alcohol 235 mg/dL (NONE DETECTED) 04/19/19 23:45 04/19/19 04/19/19 23:45 23:45 Troponin I < 0.012 NT-Pro-B Natriuret Pep 37 Impressions: Chest X-Ray 04/19/19 23:49 IMPRESSION: Lungs grossly clear. Satisfactory placement of supportive appliances copyright 2011 [facility] [employer]- All Rights Reserved Chest/Abdomen CTA 04/20/19 01:49 IMPRESSION: 1. Bolus timing is suboptimal for evaluation of pulmonary embolus with no evidence of a large or central pulmonary embolus and no definite pulmonary emboli on this exam but would be difficult to fully exclude small peripheral pulmonary emboli from this exam. 2. Mild bilateral lower lung atelectasis. 3. Several less than 5 mm bilateral pulmonary nodules, as above consider optional CT follow-up in one year. Plan Health Concerns: Alcohol abuse and has been counseled on the need to abstain from alcohol Time Spent: Greater than 30 Minutes Stroke Is this a Stroke Patient?: No Acute Heart Failure - Is this a Heart Failure Patient?: No
[2019-04-22 16:52] VITALS: BP 125/71
== END 2019-04-22 17:55 | disposition home or self-care (01) | DRG 208 ==
LOC: ER 23:44 → EH 04-20 02:09 → ICU 04-20 02:48 → 5 04-21 18:12
PROVIDERS: ADMIT Anesthesiology; ATTEND Internal Medicine
PROC: 5A1935Z Respiratory Ventilation, Less than 24 Consecutive Hours (ICD-10-PCS; principal; 2019-04-20)
DX: J96.01 Acute respiratory failure with hypoxia (principal); F10.129 Alcohol abuse with intoxication, unspecified; J43.2 Centrilobular emphysema; I10 Essential (primary) hypertension; R82.5 Elevated urine levels of drugs, medicaments and biological substances; Y90.7 Blood alcohol level of 200-239 mg/100 ml; E78.5 Hyperlipidemia, unspecified; R91.8 Other nonspecific abnormal finding of lung field; E11.9 Type 2 diabetes mellitus without complications; Z90.49 Acquired absence of other specified parts of digestive tract; Z78.1 Physical restraint status; M19.90 Unspecified osteoarthritis, unspecified site; Z79.51 Long term (current) use of inhaled steroids; Z79.82 Long term (current) use of aspirin; I25.2 Old myocardial infarction
CPT/HCPCS: 36415; 51702; 71045; 71275; 80053; 80307; 81001; 82803; 82962; 83880; 84484; 85025; 93005; 93010; 94002; 94640; 96374; 99231; 99291; 99292; J2060; J2250; J2930; J3490; J7120; J7512; J7620

== ENCOUNTER 2019-04-27 21:52 | Emergency (ER) | payer SELFPAY ==
[2019-04-27 22:39] LABS: ABSOLUTE BASOPHILS # (AUTO) 0.1 10^3/uL (0.0-0.2); ABSOLUTE EOSINOPHILS # (AUTO) 0.1 10^3/uL (0.0-0.6); ABSOLUTE LYMPHOCYTES (AUTO) 1.5 10^3/uL (0.5-4.7); ABSOLUTE MONOCYTES (AUTO) 0.4 10^3/uL (0.1-1.4); ABSOLUTE NEUT (AUTO) 2.4 10^3/uL (1.7-8.2); BASOPHILS % (AUTO) 1.3 % (0-2); EOSINOPHILS % (AUTO) 2.9 % (0-6); HEMATOCRIT 37.6 % (37.9-51.0); HEMOGLOBIN 12.9 g/dL (13.5-17.0); LYMPHOCYTES % (AUTO) 33.2 % (13-45); MEAN CORPUSCULAR HEMOGLOBIN 34.3 pg (27.0-33.4); MEAN CORPUSCULAR HGB CONC 34.3 g/dL (32.0-36.0); MEAN CORPUSCULAR VOLUME 100 fl (80-97); MONOCYTES % (AUTO) 8.9 % (3-13); PLATELET COUNT 165 10^3/uL (150-450); RED BLOOD COUNT 3.76 10^6/uL (4.35-5.55); RED CELL DISTRIBUTION WIDTH 14.5 % (11.5-14.0); SEGMENTED NEUTROPHILS % (AUTO) 53.7 % (42-78); TOTAL CELLS COUNTED % (AUTO) 100 %; WHITE BLOOD COUNT 4.6 10^3/uL (4.0-10.5)
[2019-04-27 22:52] LABS: ALBUMIN 3.4 g/dL (3.5-5.0); ALCOHOL 205 mg/dL (NONE DETECTED); ALKALINE PHOSPHATASE 65 U/L (38-126); ANION GAP 9 (5-19); ASPARTATE AMINO TRANSFERASE 29 U/L (17-59); BILIRUBIN,DIRECT 0.2 mg/dL (0.0-0.4); BILIRUBIN,TOTAL 0.5 mg/dL (0.2-1.3); BLOOD UREA NITROGEN 7 mg/dL (7-20); CALCIUM 9.1 mg/dL (8.4-10.2); CARBON DIOXIDE 24 mmol/L (22-30); CHLORIDE 105 mmol/L (98-107); GLUCOSE 81 mg/dL (75-110); TOTAL PROTEIN 6.2 g/dL (6.3-8.2)
[2019-04-27 23:35] LABS: APPEARANCE,URINE CLEAR; BILIRUBIN,URINE NEGATIVE (NEGATIVE); COLOR,URINE STRAW; GLUCOSE, URINE NEGATIVE (NEGATIVE); KETONES,URINE NEGATIVE (NEGATIVE); LEUKOCYTE ESTERASE,URINE NEGATIVE (NEGATIVE); NITRITE,URINE NEGATIVE (NEGATIVE); PROTEIN,URINE NEGATIVE (NEGATIVE); URINE SPECIFIC GRAVITY 1.002; UROBILINOGEN,URINE NEGATIVE mg/dL (<2.0)
[2019-04-27 23:56] LABS: URINE AMPHETAMINES SCREEN NEGATIVE; URINE BARBITURATES SCREEN NEGATIVE; URINE COCAINE SCREEN NEGATIVE; URINE MARIJUANA (THC) SCREEN NEGATIVE; URINE METHADONE SCREEN NEGATIVE; URINE PHENCYCLIDINE SCREEN NEGATIVE
[2019-04-27 23:58] LABS: URINE BENZODIAZEPINES SCREEN UNCONFIRMED POSITIVE
[2019-04-28] MEDS ORDERED: IPRATROPIUM/ALBUTEROL 0.5-2.5 MG/3 ML AMPUL NEB ONE (00:36)
--- NOTE | 2019-04-28 00:41 | ER Document Report ---
ED General - General Chief Complaint: ETOH Abuse Stated Complaint: AMS/ETOH Time Seen by Provider: 04/28/19 00:10 Primary Care Provider: TODD SORTO MD [COMMUNITY BASED STAFF] - Follow up as needed KISHORE VASQUEZ MD [HONORARY] - Follow up as needed Mode of Arrival: Medic Information source: Patient, Emergency Med Personnel TRAVEL OUTSIDE OF THE [place] IN LAST 30 DAYS: No - HPI Onset: This morning Onset/Duration: Gradual Quality of pain: No pain Severity: Moderate Pain Level: Denies Associated symptoms: Other - alcohol intoxication, memory loss of this morning due to drinking Exacerbated by: Denies Relieved by: Denies Similar symptoms previously: Yes - just discharged after being admitted for altered mental status/intoxication Recently seen / treated by doctor: Yes - patient was just discharged on 04/22/19 Notes: 58 year old male alcoholic with a history of HTN, HLD, DM, COPD, CVA who was just admitted to the hospital for altered mental status in the setting of being intoxicated (he had been intubated and admitted to the ICU but was discharged from a medical floor on 04/22/19) brought in by EMS for altered mental status and aggressive behavior in the setting of alcohol intoxication. The patient reports drinking 6-7 beers to me and EMS apparently administer 2.5mg Versed to calm the patient down during transport. The patient does not known why he is in the ER and he does not remember much of the evening. The patient has no real complaints at this time and he would like to go home. - Related Data Allergies/Adverse Reactions: No Known Allergies Allergy (Verified 08/11/18 12:14) Past Medical History - General Information source: Patient, Emergency Med Personnel - Social History Smoking Status: Current Every Day Smoker Frequency of alcohol use: Heavy Drug Abuse: None Lives with: Alone Family History: Reviewed & Not Pertinent, CAD, DM, Hyperlipidemia, Hypertension, Malignancy Patient has suicidal ideation: No Patient has homicidal ideation: No - Past Medical History Cardiac Medical History: Reports: Hx Heart Attack, Hx Hypercholesterolemia, Hx Hypertension Pulmonary Medical History: Reports: Hx Asthma, Hx Bronchitis, Hx COPD, Hx Pneumonia Neurological Medical History: Reports: Hx Cerebrovascular Accident Endocrine Medical History: Reports: Hx Diabetes Mellitus Type 2 Renal/ Medical History: Denies: Hx Peritoneal Dialysis Musculoskeletal Medical History: Reports Hx Arthritis, Reports Hx Musculoskeletal Trauma Skin Medical History: Reports Hx Cellulitis Traumatic Medical History: Reports: Hx Fractures - Right ankle and leg Past Surgical History: Reports: Hx Appendectomy, Hx Orthopedic Surgery - orif left leg - Immunizations Immunizations up to date: Yes Hx Diphtheria, Pertussis, Tetanus Vaccination: Yes - PT UNSURE Review of Systems - Review of Systems Constitutional: No symptoms reported EENT: No symptoms reported Cardiovascular: No symptoms reported Respiratory: No symptoms reported Gastrointestinal: No symptoms reported Genitourinary: No symptoms reported Male Genitourinary: No symptoms reported Musculoskeletal: No symptoms reported Skin: No symptoms reported Hematologic/Lymphatic: No symptoms reported Neurological/Psychological: Other - Altered Mental Status, Alcohol Intoxication -: Yes All other systems reviewed and negative Physical Exam - Vital signs Vitals: Temp Pulse Resp BP Pulse Ox 97.8 F 82 18 102/71 98 04/27/19 22:03 04/27/19 22:03 04/27/19 22:03 04/27/19 22:03 04/27/19 22:03 - Notes Notes: GENERAL: Poorly groomed, smells of alcohol, well-nourished and in no acute distress. HEAD: Atraumatic, normocephalic. EYES: Pupils equal round and reactive to light, extraocular movements intact, sclera anicteric, conjunctiva are normal. ENT: Nares patent, oropharynx clear without exudates. Moist mucous membranes. NECK: Normal range of motion, supple without lymphadenopathy or JVD. LUNGS: Breath sounds clear to auscultation bilaterally and equal. No wheezes rales or rhonchi. HEART: Regular rate and rhythm without murmurs, rubs or gallops. ABDOMEN: Soft, nontender, normoactive bowel sounds. No guarding, no rebound. No masses appreciated. EXTREMITIES: Normal range of motion, no pitting or edema. No clubbing or cyanosis. NEUROLOGICAL: Cranial nerves II through XII grossly intact. Normal speech, normal gait. PSYCH: Normal mood, normal affect. Denies SI or HI. Endorses heavy alcohol use today. SKIN: Warm, Dry, normal turgor, no rashes or lesions noted. Course - Re-evaluation Re-evalutation: 04/28/19 00:47 The patient is intoxicated but reasonable at this point in his ER visit. The patient was apparently aggressive with EMS but he was not aggressive in the ER. EMS had given the patient 2.5mg of Versed IV prior to ER arrival and that is the only substance found on Tox screening in his system other then alcohol. Patient has no way of getting home at this hour. Will allow him to sleep/rest in the ER until he is clinically more sober and has a means of getting home. Patient is in no distress and denies SI or HI. - Vital Signs Vital signs: Temp Pulse Resp BP Pulse Ox 97.8 F 88 18 102/70 100 04/27/19 22:03 04/28/19 01:21 04/28/19 01:21 04/28/19 01:21 04/28/19 01:21 - Laboratory Result Diagrams: 04/27/19 22:28 04/27/19 22:28 Laboratory results interpreted by me: 04/27/19 04/27/19 22:28 22:28 RBC 3.76 L Hgb 12.9 L Hct 37.6 L MCV 100 H MCH 34.3 H RDW 14.5 H Total Protein 6.2 L Albumin 3.4 L Discharge - Discharge Clinical Impression: Alcohol abuse Altered mental status Qualifiers: Altered mental status type: unspecified Qualified Code(s): R41.82 - Altered mental status, unspecified Disposition: HOME, SELF-CARE Instructions: Acute Alcohol Intoxication ([facility]), Chronic Alcoholism ([facility]) Additional Instructions: Finish your previously prescribed medications from your recent admission. Follow up with your primary care doctor or one of the primary care doctors listed in your paperwork. Also consider follow up with outpatient mental health. Drink p lenty of water in the days to come. Referrals: TODD SORTO MD [COMMUNITY BASED STAFF] - Follow up as needed KISHORE VASQUEZ MD [HONORARY] - Follow up as needed
[2019-04-28 01:22] VITALS: BP 102/70
== END 2019-04-28 01:35 | disposition home or self-care (01) ==
LOC: ER 21:52
DX: R41.82 Altered mental status, unspecified (principal); F10.10 Alcohol abuse, uncomplicated; F17.200 Nicotine dependence, unspecified, uncomplicated; E78.00 Pure hypercholesterolemia, unspecified; I10 Essential (primary) hypertension; J44.9 Chronic obstructive pulmonary disease, unspecified; E11.9 Type 2 diabetes mellitus without complications; Z86.73 Personal history of transient ischemic attack (TIA), and cerebral infarction without residual deficits; I25.2 Old myocardial infarction
CPT/HCPCS: 36415; 80307 ×2; 85025; 80053; 81001; J7620; 94640; 99285

== ENCOUNTER 2019-05-16 14:53 | Emergency (ER) | payer SELFPAY ==
[2019-05-16 15:51] LABS: ABSOLUTE EOSINOPHILS # (AUTO) 0.1 10^3/uL (0.0-0.6); ABSOLUTE MONOCYTES (AUTO) 0.4 10^3/uL (0.1-1.4); BASOPHILS % (AUTO) 0.9 % (0-2); EOSINOPHILS % (AUTO) 2.5 % (0-6); HEMATOCRIT 42.7 % (37.9-51.0); HEMOGLOBIN 14.3 g/dL (13.5-17.0); LYMPHOCYTES % (AUTO) 27.5 % (13-45); MEAN CORPUSCULAR HGB CONC 33.6 g/dL (32.0-36.0); MONOCYTES % (AUTO) 11.1 % (3-13); PLATELET COUNT 168 10^3/uL (150-450); RED BLOOD COUNT 4.09 10^6/uL (4.35-5.55); RED CELL DISTRIBUTION WIDTH 14.9 % (11.5-14.0); TOTAL CELLS COUNTED % (AUTO) 100 %; WHITE BLOOD COUNT 3.5 10^3/uL (4.0-10.5)
--- NOTE | 2019-05-16 15:54 | ER Document Report ---
ED General - General TRAVEL OUTSIDE OF THE [place] IN LAST 30 DAYS: No <NARCISA MEJIA - Last Filed: 05/16/19 19:50> <PATEL LAYTON - Last Filed: 05/17/19 01:34> - General Chief Complaint: ETOH Abuse Stated Complaint: ETOH ABUSE Time Seen by Provider: 05/16/19 15:28 Notes: History taken from EMS report due to pt sleeping secondary to Versed and Ativan. 58-year-old male with history of alcohol abuse presents for SI. Patient was drinking with a friend when he started to moan and roll on the floor. Friend called EMS. When EMS arrived on scene patient states he does not want to live any longer due to his recently passing away. Patient was given Versed 5 mg IM by EMS initially and was placed in restraints due to combativeness. On transport to ER patient became more combative and was given Ativan 1 mg. Patient is currently obtunded. (NARCISA MEJIA) - Related Data Allergies/Adverse Reactions: No Known Allergies Allergy (Verified 08/11/18 12:14) Past Medical History - Social History Smoking Status: Unknown if Ever Smoked Frequency of alcohol use: Heavy Drug Abuse: None Family History: Reviewed & Not Pertinent, CAD, DM, Hyperlipidemia, Hypertension, Malignancy Patient has suicidal ideation: Yes Patient has homicidal ideation: No - Past Medical History Cardiac Medical History: Reports: Hx Heart Attack, Hx Hypercholesterolemia, Hx Hypertension Pulmonary Medical History: Reports: Hx Asthma, Hx Bronchitis, Hx COPD, Hx Pneumonia Neurological Medical History: Reports: Hx Cerebrovascular Accident Endocrine Medical History: Reports: Hx Diabetes Mellitus Type 2 Renal/ Medical History: Denies: Hx Peritoneal Dialysis Musculoskeletal Medical History: Reports Hx Arthritis, Reports Hx Musculoskeletal Trauma Skin Medical History: Reports Hx Cellulitis Traumatic Medical History: Reports: Hx Fractures - Right ankle and leg Past Surgical History: Reports: Hx Appendectomy, Hx Orthopedic Surgery - orif left leg - Immunizations Immunizations up to date: Yes Hx Diphtheria, Pertussis, Tetanus Vaccination: Yes - PT UNSURE <NARCISA MEJIA - Last Filed: 05/16/19 19:50> Review of Systems - Review of Systems -: Yes ROS unobtainable due to patient's medical condition <NARCISA MEJIA - Last Filed: 05/16/19 19:50> Physical Exam <NARCISA MEJIA - Last Filed: 05/16/19 19:50> - Vital signs Vitals: Temp Pulse BP Pulse Ox 97.4 F 62 135/63 H 100 05/16/19 15:01 05/16/19 15:01 05/16/19 15:01 05/16/19 15:01 - Notes Notes: GENERAL: Well-appearing, well-nourished and in no acute distress. HEAD: Atraumatic, normocephalic. Lungs: No tachypnea. No accessory muscle use. NEUROLOGICAL: Pt is obtunded. PSYCH: Suicidal. SKIN: Warm, Dry, normal turgor, no rashes or lesions noted. (NARCISA MEJIA) Course - Laboratory Result Diagrams: 05/16/19 15:26 05/16/19 15:26 <NARCISA MEJIA - Last Filed: 05/16/19 19:50> - Laboratory Result Diagrams: 05/16/19 15:26 05/16/19 15:26 <PATEL LAYTON - Last Filed: 05/17/19 01:34> - Re-evaluation Re-evalutation: 05/16/19 15:53 patient presents for SI. Patient is currently obtunded secondary to IM Versed and Ativan that was given by EMS. Patient shows no signs of acute respiratory distress. Patient is resting comfortably in bed. We will continue to monitor and lab work was initiated to medically clear patient for psychiatric evaluation. 05/16/19 18:01 Pt continues be obtunded. Positive for cocaine. Alcohol level 161. 05/16/19 19:50 Pt continues to be obtunded. No signs of respiratory distress. (NARCISA MEJIA) 05/17/19 01:29 I evaluated the patient in the ER since I had seen him before. The patient apparently endorsed SI while drinking and using cocaine. The patient needed to be sedated by EMS to bring him to the ER. Psych therefore could not perform an evaluation of the patient since he was sedated when they tried to evaluate the patient. The patient was awake when I spoke with him but drowsy. He told me he had been drinking and doing drugs but that he currently denies SI of any kind. The patient has been seen for substance abuse in the past in the this ER. The patient denied SI to the nurse working during my shift as well. The patient is tired likely from the drugs he did and from the sedation he was given by EMS. The plan is for the patient to sleep the night to be reassessed in the morning when he is completely sober. The patient at present is denying SI and I suspect this will remain the case now that he is more sober. No IVC papers needed. (PATEL LAYTON) - Vital Signs Vital signs: Temp Pulse Resp BP Pulse Ox 98.1 F 62 15 120/64 98 05/16/19 19:11 05/16/19 15:01 05/16/19 23:01 05/16/19 23:00 05/16/19 18:01 - Laboratory Laboratory results interpreted by me: 05/16/19 05/16/19 15:26 15:26 WBC 3.5 L RBC 4.09 L MCV 104 H D MCH 35.0 H RDW 14.9 H Chloride 109 H Carbon Dioxide 20 L BUN 4 L Salicylates < 1.0 L Acetaminophen < 10 L Discharge <NARCISA MEJIA - Last Filed: 05/16/19 19:50> <PATEL LAYTON - Last Filed: 05/17/19 01:34> - Discharge Clinical Impression: Suicidal ideation, Cocaine abuse Alcohol intoxication Qualifiers: Complication of substance-induced condition: uncomplicated Qualified Code(s): F10.920 - Alcohol use, unspecified with intoxication, uncomplicated Condition: Stable Disposition: PSYCH HOSP/UNIT
[2019-05-16 16:00] LABS: MEAN CORPUSCULAR VOLUME 104 fl (80-97)
[2019-05-16 16:07] LABS: ALBUMIN 3.9 g/dL (3.5-5.0); ALCOHOL 161 mg/dL (NONE DETECTED); ALKALINE PHOSPHATASE 64 U/L (38-126); ANION GAP 11 (5-19); ASPARTATE AMINO TRANSFERASE 25 U/L (17-59); BILIRUBIN,DIRECT 0.2 mg/dL (0.0-0.4); BILIRUBIN,TOTAL 0.7 mg/dL (0.2-1.3); BLOOD UREA NITROGEN 4 mg/dL (7-20); CALCIUM 9.2 mg/dL (8.4-10.2); CARBON DIOXIDE 20 mmol/L (22-30); CHLORIDE 109 mmol/L (98-107); GLUCOSE 75 mg/dL (75-110); POTASSIUM 4.4 mmol/L (3.6-5.0); TOTAL PROTEIN 6.9 g/dL (6.3-8.2)
[2019-05-16 16:10] LABS: APPEARANCE,URINE CLEAR; BILIRUBIN,URINE NEGATIVE (NEGATIVE); COLOR,URINE STRAW; GLUCOSE, URINE NEGATIVE (NEGATIVE); KETONES,URINE NEGATIVE (NEGATIVE); LEUKOCYTE ESTERASE,URINE NEGATIVE (NEGATIVE); NITRITE,URINE NEGATIVE (NEGATIVE); PROTEIN,URINE NEGATIVE (NEGATIVE); URINE SPECIFIC GRAVITY 1.002; UROBILINOGEN,URINE NEGATIVE mg/dL (<2.0)
--- NOTE | 2019-05-16 16:11 | PSYCHOLOGICAL NOTE ---
Psych Note - Psych Note Date seen by psych provider: 05/16/19 Time seen by psych provider: 16:00 Psych Note: Per chart review and verbal report from nurse and attending physician, patient was given Ativan and Versed. Patient was aggressive and noncompliant. EMS had to restrain patient prior to arrival to ED. Clinician attempted to evaluate, but was unable due to patient's current state.
[2019-05-16 16:15] LABS: ACETAMINOPHEN < 10 ug/mL (10-30); SALICYLATE < 1.0 mg/dL (2.0-20.0)
[2019-05-16 16:20] LABS: URINE AMPHETAMINES SCREEN NEGATIVE; URINE BARBITURATES SCREEN NEGATIVE; URINE MARIJUANA (THC) SCREEN NEGATIVE; URINE METHADONE SCREEN NEGATIVE; URINE PHENCYCLIDINE SCREEN NEGATIVE
[2019-05-16 16:26] LABS: URINE BENZODIAZEPINES SCREEN UNCONFIRMED POSITIVE; URINE COCAINE SCREEN UNCONFIRMED POSITIVE
--- NOTE | 2019-05-16 17:31 | EKG REPORT ---
SEVERITY:- ABNORMAL ECG - SINUS RHYTHM ST ELEVATION SUGGESTS PERICARDITIS CORELATE CILINICALLY : Confirmed by: Deja Starr MD 16-May-2019 17:31:23
[2019-05-17 06:29] VITALS: BP 118/66
--- NOTE | 2019-05-17 07:41 | PSYCHOLOGICAL NOTE ---
Psych Note - Psych Note Date seen by psych provider: 05/17/19 Time seen by psych provider: 07:05 Psych Note: Patient is a 58-year-old male who presents to ED via EMS. Patient has a significant history of ETOH abuse. Patient's friends called EMS because they had been drinking alcohol heavily today and observed patient moaning and rolling on the floor. Patient has seen by medical staff at [facility] 13 times since 03/18/2019. Patient's urine drug screen is typically positive for high ETOH, cocaine, and benzodiazapine. A search of patient's name in the [place] Controlled Substance Database does not reflect patient has a prescription for a benzodiazapine. Patient states he is experiencing "sharp pain in the left side." Patient states he has medical conditions that are causing pain, and he has been to 7 Doctors who cannot identity the source of the pain. Patient states his medical conditions are not related to his chronic ETOH abuse. Patient denies suicidal and homicidal ideations. Patient declines substance abuse treatment. 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 Clinician checked in with patient. Clinician explained in detail [facility], [facility], and [facility] mobile crisis. Patient stated he would take resources, but declined to engage in treatment. Clinician encouraged patient to consider mental health services to process through his grief and frustration with his medical concerns, to which patient declined. Patient is alert and oriented to person, place, time and circumstance. Mood is normal with congruent affect. Patient denies suicidal and homicidal ideations. Delusions are absent and behavior is congruent with an intact reality based presentation (i.e., organized and linear through processes). There is no observed behavior that suggests patient is responding to internal stimuli. Patient is able to engage in organized, rational thought processes. Patient is able to express needs and wants in a logical manner. Patient denies current auditory and visual hallucinations. Eye contact is appropriate. Conversational speech is within normal rate, tone, and prosody. Intellectual ability appears to be within average range. Attention and concentration are fair. Insight, judgment and impulse control are currently poor. Impression/Plan: Patient is cleared from acute psychiatric services. Patient denies suicidal and homicidal ideations. There is no observed behavior that suggests patient is responding to internal stimuli. Patient engaged in organized, rational, linear thought processes and was able to express needs and wants in a logical manner. Patient declined behavioral health assistance and substance abuse treatment. Patient was provided with mental health resource list and substance abuse treatment resource list with the contact information for [facility], [facility], and A highlighted. Dr. Donahue was consulted on the care and management of this patient; attending physician is in agreement with recommendations and disposition.
--- NOTE | 2019-05-17 09:14 | ER Document Report ---
Doctor's Note Notes: 05/17/19 09:09 Pt was evaluated by psych team. Pt denies SI/HI currently. Pt given outpatient resources by psych team. Pt sees [facility] as [facility]. Pt is alert & oriented. Nontoxic, well appearing. Vitals currently reassuring. Pt voices understanding and agrees with plan of care for discharge.
== END 2019-05-17 09:37 | disposition home or self-care (01) ==
LOC: ER 14:53
DX: R45.851 Suicidal ideations (principal); F10.120 Alcohol abuse with intoxication, uncomplicated; Y90.6 Blood alcohol level of 120-199 mg/100 ml; F14.10 Cocaine abuse, uncomplicated; Z63.4 Disappearance and death of family member; I10 Essential (primary) hypertension; J44.9 Chronic obstructive pulmonary disease, unspecified; E11.9 Type 2 diabetes mellitus without complications
CPT/HCPCS: 36415; 80053; 80307; 81001; 85025; 93005; 93010; 99285

== ENCOUNTER 2019-06-24 14:34 | Emergency (ER) | payer OTHER ==
[2019-06-24 15:47] LABS: ABSOLUTE BASOPHILS # (AUTO) 0.1 10^3/uL (0.0-0.2); ABSOLUTE EOSINOPHILS # (AUTO) 0.1 10^3/uL (0.0-0.6); ABSOLUTE MONOCYTES (AUTO) 0.4 10^3/uL (0.1-1.4); HEMOGLOBIN 14.8 g/dL (13.5-17.0); TOTAL CELLS COUNTED % (AUTO) 100 %
--- NOTE | 2019-06-24 15:48 | ER Document Report ---
ED General - General Chief Complaint: Breathing Difficulty Stated Complaint: POSSIBLE ETOH Time Seen by Provider: 06/24/19 15:13 Mode of Arrival: Medic Information source: Patient Notes: 8-year-old man presents to the emergency department history of COPD, depression, alcohol abuse, substance abuse. Today became very dyspneic and called 911, he was given nebulizer treatment in route with some improvement. States that he was working in the yard when he became dyspneic. He has been having some pain in his left chest and left shoulder since late March. He notes that the pain has been unrelieved. TRAVEL OUTSIDE OF THE [place] IN LAST 30 DAYS: No - Related Data Allergies/Adverse Reactions: No Known Allergies Allergy (Verified 08/11/18 12:14) Past Medical History - Social History Smoking Status: Unknown if Ever Smoked Frequency of alcohol use: Heavy Family History: Reviewed & Not Pertinent, CAD, DM, Hyperlipidemia, Hypertension, Malignancy Patient has suicidal ideation: No Patient has homicidal ideation: No - Past Medical History Cardiac Medical History: Reports: Hx Heart Attack, Hx Hypercholesterolemia, Hx Hypertension Pulmonary Medical History: Reports: Hx Asthma, Hx Bronchitis, Hx COPD, Hx Pneumonia Neurological Medical History: Reports: Hx Cerebrovascular Accident Endocrine Medical History: Reports: Hx Diabetes Mellitus Type 2 Renal/ Medical History: Denies: Hx Peritoneal Dialysis Musculoskeletal Medical History: Reports Hx Arthritis, Reports Hx Musculoskeletal Trauma Skin Medical History: Reports Hx Cellulitis Traumatic Medical History: Reports: Hx Fractures - Right ankle and leg Past Surgical History: Reports: Hx Appendectomy, Hx Orthopedic Surgery - orif left leg - Immunizations Immunizations up to date: Yes Hx Diphtheria, Pertussis, Tetanus Vaccination: Yes - PT UNSURE Review of Systems - Review of Systems Notes: Constitutional: Negative for fever. HENT: Negative for sore throat. Eyes: Negative for visual changes. Cardiovascular: Negative for chest pain. Respiratory: + shortness of breath. Gastrointestinal: Negative for abdominal pain, vomiting or diarrhea. Genitourinary: Negative for dysuria. Musculoskeletal: + Left chest and left shoulder pain. Skin: Negative for rash. Neurological: Negative for headaches, weakness or numbness. 10 point ROS negative except as marked above and in HPI. Physical Exam - Vital signs Vitals: Resp Pulse Ox 18 96 06/24/19 14:47 06/24/19 14:47 - Notes Notes: PHYSICAL EXAMINATION: Physical Exam: General: Well-nourished well-developed 58-year-old man in no acute distress HEENT: NC/AT, pupils equal round and reactive to light, MM moist,nares clear, oropharynx clear, airway patent Neck: supple, no adenopathy, no masses. Good range of motion Lungs: clear, no wheezing, no rales no rhonchi CVS: Regular rate and rhythm no murmur gallop or rub Chest: Tenderness in the lateral chest wall and posterior left shoulder. Abdomen: Soft, active, nontender, no masses, no hepatosplenomegaly Ext: No edema, clubbing or cyanosis. Neuro: Alert and responsive, moving all 4 extremities on command, cranial nerves intact, no focal findings Skin: Intact no open lesions, no rash PSYCH: Normal mood, normal affect. Course - Re-evaluation Re-evalutation: 06/24/19 17:47 Patient apparently signed out AGAINST MEDICAL ADVICE, he could not wait to have a final disposition. - Vital Signs Vital signs: Temp Pulse Resp BP Pulse Ox 98.1 F 16 133/83 H 98 06/24/19 15:30 06/24/19 17:01 06/24/19 17:01 06/24/19 17:01 - Laboratory Result Diagrams: 06/24/19 14:58 06/24/19 14:58 Laboratory results interpreted by me: 06/24/19 14:58 RBC 4.27 L MCV 101 H MCH 34.7 H I have reviewed laboratory data and used this information for the treatment decisions regarding the patient. - Diagnostic Test Radiology reviewed: Image reviewed, Reports reviewed - Chest x-ray: No acute cardiopulmonary findings. - EKG Interpretation by Me EKG shows normal: Sinus rhythm - EKG sinus arrhythmia, rate 54-78. No acute ST or T wave abnormalities. Discharge - Discharge Clinical Impression: COPD exacerbation, Chest wall pain, Alcohol abuse Condition: Good Disposition: AGAINST MEDICAL ADVICE
[2019-06-24 15:54] LABS: ABSOLUTE LYMPHOCYTES (AUTO) 1.2 10^3/uL (0.5-4.7); ABSOLUTE NEUT (AUTO) 2.4 10^3/uL (1.7-8.2); BASOPHILS % (AUTO) 1.8 % (0-2); EOSINOPHILS % (AUTO) 1.6 % (0-6); HEMATOCRIT 42.9 % (37.9-51.0); LYMPHOCYTES % (AUTO) 29.1 % (13-45); MEAN CORPUSCULAR HEMOGLOBIN 34.7 pg (27.0-33.4); MEAN CORPUSCULAR HGB CONC 34.5 g/dL (32.0-36.0); MEAN CORPUSCULAR VOLUME 101 fl (80-97); MONOCYTES % (AUTO) 10.4 % (3-13); PLATELET COUNT 226 10^3/uL (150-450); RED BLOOD COUNT 4.27 10^6/uL (4.35-5.55); RED CELL DISTRIBUTION WIDTH 13.5 % (11.5-14.0); SEGMENTED NEUTROPHILS % (AUTO) 57.1 % (42-78); WHITE BLOOD COUNT 4.2 10^3/uL (4.0-10.5)
[2019-06-24 15:55] LABS: INTERNATIONAL RATION (INR) 1.06; PROTHROMBIN TIME 13.8 SEC (11.4-15.4)
[2019-06-24 16:10] LABS: ALBUMIN 3.7 g/dL (3.5-5.0); ALCOHOL 216 mg/dL (NONE DETECTED); ALKALINE PHOSPHATASE 75 U/L (38-126); ANION GAP 8 (5-19); ASPARTATE AMINO TRANSFERASE 38 U/L (17-59); BILIRUBIN,TOTAL 0.6 mg/dL (0.2-1.3); BLOOD UREA NITROGEN 7 mg/dL (7-20); CALCIUM 8.9 mg/dL (8.4-10.2); CARBON DIOXIDE 24 mmol/L (22-30); CHLORIDE 106 mmol/L (98-107); GLUCOSE 84 mg/dL (75-110); POTASSIUM 4.3 mmol/L (3.6-5.0); TOTAL PROTEIN 6.4 g/dL (6.3-8.2)
--- NOTE | 2019-06-24 16:21 | RADIOLOGY REPORT (SQ) ---
EXAM DESCRIPTION: CHEST SINGLE VIEW IMAGES COMPLETED DATE/TIME: 06/24/2019 4:13 pm REASON FOR STUDY: Shortness of breath COMPARISON: 04/20/2019 EXAM PARAMETERS: NUMBER OF VIEWS: One view. TECHNIQUE: Single frontal radiographic view of the chest acquired. RADIATION DOSE: NA LIMITATIONS: None. FINDINGS: LUNGS AND PLEURA: No opacities, masses or pneumothorax. No pleural effusion. MEDIASTINUM AND HILAR STRUCTURES: No masses. Contour normal. HEART AND VASCULAR STRUCTURES: Heart normal in size. Normal vasculature. BONES: No acute findings. HARDWARE: None in the chest. OTHER: No other significant finding. IMPRESSION: NO ACUTE RADIOGRAPHIC FINDING IN THE CHEST. TECHNICAL DOCUMENTATION: JOB ID: [id number] 2010 [employer]- All Rights Reserved Reading location - IP/workstation name: [email or web address]
[2019-06-24 16:34] LABS: APPEARANCE,URINE CLEAR; BILIRUBIN,URINE NEGATIVE (NEGATIVE); COLOR,URINE STRAW; GLUCOSE, URINE NEGATIVE (NEGATIVE); KETONES,URINE NEGATIVE (NEGATIVE); PROTEIN,URINE NEGATIVE (NEGATIVE); URINE SPECIFIC GRAVITY 1.004; UROBILINOGEN,URINE NEGATIVE mg/dL (<2.0)
[2019-06-24 16:53] LABS: URINE AMPHETAMINES SCREEN NEGATIVE; URINE BARBITURATES SCREEN NEGATIVE; URINE BENZODIAZEPINES SCREEN NEGATIVE; URINE COCAINE SCREEN NEGATIVE; URINE MARIJUANA (THC) SCREEN NEGATIVE; URINE METHADONE SCREEN NEGATIVE; URINE PHENCYCLIDINE SCREEN NEGATIVE
[2019-06-24 17:29] VITALS: BP 133/83
--- NOTE | 2019-06-24 21:50 | EKG REPORT ---
SEVERITY:- OTHERWISE NORMAL ECG - SINUS ARRHYTHMIA, RATE 54-78 : Confirmed by: Deja Starr MD 24-Jun-2019 21:48:27
== END 2019-06-24 15:37 | disposition left against medical advice (07) ==
LOC: ER 14:34
DX: J44.1 Chronic obstructive pulmonary disease with (acute) exacerbation (principal); R07.89 Other chest pain; R06.00 Dyspnea, unspecified; F32.9 Major depressive disorder, single episode, unspecified; E78.00 Pure hypercholesterolemia, unspecified; I10 Essential (primary) hypertension; E11.9 Type 2 diabetes mellitus without complications; Z86.73 Personal history of transient ischemic attack (TIA), and cerebral infarction without residual deficits; I25.2 Old myocardial infarction
CPT/HCPCS: 36415; 71045; 80053; 80307; 81001; 85025; 85610; 93005; 93010; 99281

== ENCOUNTER 2019-07-26 19:35 | Inpatient (IN) | payer SELFPAY ==
--- NOTE | 2019-07-26 20:20 | EKG REPORT ---
SEVERITY:- NORMAL ECG - SINUS RHYTHM : Confirmed by: Fabricio Robles MD 26-Jul-2019 20:19:17
[2019-07-26 20:42] LABS: ABSOLUTE EOSINOPHILS # (AUTO) 0.2 10^3/uL (0.0-0.6); ABSOLUTE LYMPHOCYTES (AUTO) 1.2 10^3/uL (0.5-4.7); ABSOLUTE MONOCYTES (AUTO) 0.5 10^3/uL (0.1-1.4); ABSOLUTE NEUT (AUTO) 2.9 10^3/uL (1.7-8.2); BASOPHILS % (AUTO) 0.7 % (0-2); EOSINOPHILS % (AUTO) 3.8 % (0-6); HEMOGLOBIN 14.3 g/dL (13.5-17.0); LYMPHOCYTES % (AUTO) 25.6 % (13-45); MEAN CORPUSCULAR HEMOGLOBIN 34.3 pg (27.0-33.4); MEAN CORPUSCULAR HGB CONC 34.2 g/dL (32.0-36.0); MEAN CORPUSCULAR VOLUME 100 fl (80-97); MONOCYTES % (AUTO) 9.4 % (3-13); PLATELET COUNT 189 10^3/uL (150-450); RED BLOOD COUNT 4.19 10^6/uL (4.35-5.55); RED CELL DISTRIBUTION WIDTH 13.3 % (11.5-14.0); SEGMENTED NEUTROPHILS % (AUTO) 60.5 % (42-78); TOTAL CELLS COUNTED % (AUTO) 100 %; WHITE BLOOD COUNT 4.8 10^3/uL (4.0-10.5)
--- NOTE | 2019-07-26 20:43 | RADIOLOGY REPORT (SQ) ---
CLINICAL INDICATION: Aletered mental status, bystander CPR in field. TECHNIQUE: A single portable AP view was obtained of the chest at 2028 hours. Additional repeat image COMPARISON: None available. FINDINGS: The cardiomediastinal silhouette is prominent. The lungs are grossly clear. No evidence of effusion or pneumothorax. The visualized bones are unremarkable. Chronic parenchymal lung change IMPRESSION: No evidence of active intrathoracic disease.
[2019-07-26 20:44] LABS: APPEARANCE,URINE CLEAR; BILIRUBIN,URINE NEGATIVE (NEGATIVE); COLOR,URINE YELLOW; GLUCOSE, URINE NEGATIVE (NEGATIVE); KETONES,URINE NEGATIVE (NEGATIVE); LEUKOCYTE ESTERASE,URINE NEGATIVE (NEGATIVE); NITRITE,URINE NEGATIVE (NEGATIVE); PROTEIN,URINE NEGATIVE (NEGATIVE); URINE SPECIFIC GRAVITY 1.004; UROBILINOGEN,URINE NEGATIVE mg/dL (<2.0)
[2019-07-26 20:58] LABS: ALKALINE PHOSPHATASE 77 U/L (38-126); ANION GAP 8 (5-19); ASPARTATE AMINO TRANSFERASE 46 U/L (17-59); BILIRUBIN,TOTAL 0.4 mg/dL (0.2-1.3); BLOOD UREA NITROGEN 6 mg/dL (7-20); CARBON DIOXIDE 23 mmol/L (22-30); CHLORIDE 101 mmol/L (98-107); GLUCOSE 86 mg/dL (75-110); POTASSIUM 4.9 mmol/L (3.6-5.0); TOTAL PROTEIN 6.6 g/dL (6.3-8.2)
[2019-07-26 21:05] LABS: URINE AMPHETAMINES SCREEN NEGATIVE; URINE BARBITURATES SCREEN NEGATIVE; URINE BENZODIAZEPINES SCREEN NEGATIVE; URINE COCAINE SCREEN NEGATIVE; URINE MARIJUANA (THC) SCREEN NEGATIVE; URINE METHADONE SCREEN NEGATIVE; URINE PHENCYCLIDINE SCREEN NEGATIVE
[2019-07-26 21:16] LABS: ALCOHOL 223 mg/dL (NONE DETECTED); CREATINE KINASE 185 U/L (55-170)
--- NOTE | 2019-07-26 21:35 | RADIOLOGY REPORT (SQ) ---
EXAM DESCRIPTION: CT HEAD WITHOUT IV CONTRAST COMPLETED DATE/TME: 07/26/2019 21:01 CLINICAL HISTORY: 58 years, Male, LLE weakness COMPARISON: Prior CT head from 05/30/2017 TECHNIQUE: Noncontrast CT head was acquired. Coronal and sagittal reformations were created. Images stored on PACS. All CT scanners at this facility use dose modulation, iterative reconstruction, and/or weight based dosing when appropriate to reduce radiation dose to as low as reasonably achievable (ALARA). [facility]: Dose Right [facility]: CareDose [facility]: Dose Right [facility]: Teradose 4D [facility]: [employer] LIMITATIONS: None. FINDINGS: Evaluation of the brain parenchyma reveals mild periventricular and patchy subcortical white matter low attenuation. MR focal area of hypodensity is noted about the right thalamus on image 19 of series 2. This was present on the previous CT head dated 05/30/2017, and most likely indicates a remote lacunar infarct. Ventricles and sulcal spaces are normal in size and configuration. Otherwise, no acute intracranial hemorrhage, mass effect, or extra-axial fluid is seen. Globes and orbits show no acute normality. Paranasal sinuses and mastoid air cells are clear. Calcifications are evident about the parasellar carotid arteries. No depressed skull fractures. IMPRESSION: No acute intracranial normality. Mild chronic microvascular ischemic change with remote lacunar infarct located within the right thalamus. TECHNICAL DOCUMENTATION: Quality ID # [id number]: Final reports with documentation of one or more dose reduction techniques (e.g., Automated exposure control, adjustment of the mA and/or kV according to patient size, use of iterative reconstruction technique) copyright 2011 [employer]- All Rights Reserved
--- NOTE | 2019-07-26 21:50 | ER Document Report ---
ED General - General Chief Complaint: ETOH Abuse Stated Complaint: ALTERED MENTAL STATUS Time Seen by Provider: 07/26/19 20:13 Primary Care Provider: [facility] [Primary Care Provider] - Follow up as needed TRAVEL OUTSIDE OF THE [place] IN LAST 30 DAYS: No - HPI Notes: 58-year-old male history of smoking, COPD, possible [place], alcohol abuse, stroke presents with few days of left-sided chest pain and shortness of breath that he says comes on occasionally unable to identify any alleviating or aggravating factors. Also had episode today where he was drinking with friends and then suddenly slumped over and was unresponsive. Bystanders said that he was pulseless and performed CPR, had pulse at time of EMS arrival to scene, unclear if patient was truly in cardiac arrest. Patient also complains of some left- sided flank pain that has been chronic times months and approximately 1 week of left lower extremity weakness. Able to ambulate but very unsteady gait secon jose to leg weakness. Patient says that few months ago his heart stopped and he was "shocked"and then admitted to ICU. Patient very poor historian. - Related Data Allergies/Adverse Reactions: No Known Allergies Allergy (Verified 08/11/18 12:14) Home Medications: Shivani Aspirin Past Medical History - General Information source: [facility] Records - Social History Smoking Status: Current Every Day Smoker Family History: Reviewed & Not Pertinent, CAD, DM, Hyperlipidemia, Hypertension, Malignancy Patient has homicidal ideation: No - Past Medical History Cardiac Medical History: Reports: Hx Heart Attack, Hx Hypercholesterolemia, Hx Hypertension Pulmonary Medical History: Reports: Hx Asthma, Hx Bronchitis, Hx COPD, Hx Pneumonia Neurological Medical History: Reports: Hx Cerebrovascular Accident Endocrine Medical History: Reports: Hx Diabetes Mellitus Type 2 Renal/ Medical History: Denies: Hx Peritoneal Dialysis Musculoskeletal Medical History: Reports Hx Arthritis, Reports Hx Musculoskeletal Trauma Skin Medical History: Reports Hx Cellulitis Traumatic Medical History: Reports: Hx Fractures - Right ankle and leg Past Surgical History: Reports: Hx Appendectomy, Hx Orthopedic Surgery - orif left leg - Immunizations Immunizations up to date: Yes Hx Diphtheria, Pertussis, Tetanus Vaccination: Yes - PT UNSURE Review of Systems - Review of Systems Notes: REVIEW OF SYSTEMS: CONSTITUTIONAL : Denies fever, +chills EENT: Denies recent cold/sinus symptoms, denies throat pain CARDIOVASCULAR: +chest pain, -CONNIE RESPIRATORY: +cough, +shortness of breath. GASTROINTESTINAL: Denies abdominal pain, nausea/vomiting. GENITOURINARY: Denies difficulty urinating, painful urination. MUSCULOSKELETAL: Denies neck pain, +back pain. SKIN: Denies rash or skin lesions. HEMATOLOGIC : Denies easy bruising or bleeding. LYMPHATIC: Denies swollen, enlarged glands. NEUROLOGICAL: Denies headache, denies change in gait. PSYCHIATRIC: -SI/HI, +stress 2/2 sister last week Physical Exam - Vital signs Vitals: Temp 97.6 F 07/26/19 19:36 - Notes Notes: PHYSICAL EXAMINATION: GENERAL: Comfortable appearing middle-aged male appearing older than stated age lying in stretcher in no acute distress HEAD: Atraumatic, normocephalic. EYES: Pupils equal round and appropriate constriction, sclera anicteric, conjunctiva are normal. ENT: nares patent, moist mucous membranes. NECK: Normal range of motion, supple without lymphadenopathy, no bruit LUNGS: Breath sounds clear to auscultation bilaterally and equal. No wheezes rales or rhonchi. Normal respiratory rate and effort HEART: Regular rate and rhythm without murmurs ABDOMEN: Soft, nontender, no guarding, no masses, no CVAT EXTREMITIES: Normal range of motion, no pitting or edema. No cyanosis. NEUROLOGICAL: Awake, alert, conversing appropriately, moves all extremities spontaneously. Cranial nerves II through XII intact bilaterally, normal [id number], bilateral upper extremity strength 5 out of 5, right lower extremity 5 out of 5, left lower extremity 4 out of 5. Able to stand PSYCH: Normal mood, normal affect. SKIN: Warm, Dry, normal turgor, no rashes or lesions noted. Course - Re-evaluation Re-evalutation: 07/26/19 21:52 Patient currently in no acute distress and normal vital signs, no events on monitor, very questionable whether patient had cardiac arrest prior to arrival, but given patient's extensive medical history, previous cardiac arrest, will admit for further work-up. Rule out COVID, PE, aortic dissection, subacute stroke, cauda equina. Monitor, troponin, BMP, dimer, chest x-ray, will obtain CTA chest versus dissection protocol, if no findings admit for MRI spine which may be deferred to inpatient team given no acute changes in weakness since 1 week ago. Will continue to monitor closely pending ED work-up. 07/26/19 23:23 Patient continues to be stable in the ED, vital signs remained stable on mon itor, patient at baseline as per daughter. On further discussion with patient left lower extremity weakness does not appear to be correlated with chest pain and and obtain CTA PE protocol due to higher clinical concern for PE and aortic dissection. Discussed case with Dr. Flaherty who has accepted patient to telemetry observation unit. I discussed the findings thus far with patient and she agrees to stay in hospital. Requested to speak to his neighbor which nurse facilitated. Patient denies having any other questions or concerns at this time. - Vital Signs Vital signs: Temp Pulse Resp BP Pulse Ox 97.6 F 71 18 118/65 98 07/26/19 19:50 07/26/19 19:50 07/26/19 19:50 07/26/19 19:50 07/26/19 20:05 - Laboratory Result Diagrams: 07/26/19 20:20 07/26/19 20:20 Laboratory results interpreted by me: 07/26/19 07/26/19 07/26/19 20:20 20:20 20:20 RBC 4.19 L MCV 100 H MCH 34.3 H D-Dimer Sodium 132.1 L BUN 6 L Creatine Kinase 185 H 07/26/19 20:20 RBC MCV MCH D-Dimer 0.77 H Sodium BUN Creatine Kinase Discharge - Discharge Clinical Impression: Syncope and collapse Condition: Good Disposition: ADMITTED OBSERVATION Admitting Provider: Reynold (Hospitalist) Unit Admitted: Telemetry [facility]errals: [facility] [Primary Care Provider] - Follow up as needed
[2019-07-26] MEDS ORDERED: ACETAMINOPHEN 325 MG TABLET PO PRN (23:25)
[2019-07-26] MEDS ORDERED: MAG HYDROX/AL HYDROX/SIMETH SUSP 30 ML UDCUP PO PRN (23:25)
[2019-07-26 23:33] LABS: A TYPE INFLUENZA AG NEGATIVE (NEGATIVE); B INFLUENZA AG NEGATIVE (NEGATIVE)
[2019-07-26 23:47] LABS: ABSOLUTE RETICS # 0.054 10^6/uL (0.028-0.122)
--- NOTE | 2019-07-27 00:13 | RADIOLOGY REPORT (SQ) ---
CLINICAL INDICATION: cp sob +dimer. . TECHNIQUE: CT arteriography was obtained of the chest with multiplanar MIP and/or 3-D angiographic reconstructions. This exam was performed according to our departmental dose-optimization program, which includes automated exposure control, adjustment of the mA and/or kV according to patient size and/or use of iterative reconstruction techniques. COMPARISON: April 20, 2019. CORRELATION: None. FINDINGS: Adequate contrast bolus. Average Hounsfield unit measurement within main pulmonary artery segment of 303. Artifact from venous opacification. There is no evidence of pulmonary embolus. Thoracic aorta is of normal caliber. The heart is prominent with coronary calcification. No pericardial effusion. No bulky mediastinal adenopathy. Small amount of venous air, presumed iatrogenic The lungs are grossly clear. No consolidation or edema. No effusion or pneumothorax. Chronic changes. Scarring medial segment right middle lobe Visualized abdominal contents are unremarkable. Vascular calcification Visualized bones are unremarkable. Old posttraumatic change IMPRESSION: No evidence of pulmonary embolus. Lungs grossly clear .
[2019-07-27 00:47] LABS: CHOLESTEROL 170.28 mg/dL (0-200); IRON(TIBC) 190.1 ug/dL (49-181); TRIGLYCERIDES 96 mg/dL (<150)
[2019-07-27 00:58] LABS: DIRECT LDL 76 mg/dL (<100)
--- NOTE | 2019-07-27 04:12 | PDOC H&P ---
History of Present Illness Admission Date/PCP: 07/26/19 23:37 [facility] Patient complains of: Altered mental status History of Present Illness: ERYN BARLOW is a 58 year old male with a past medical history of COPD, 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 Patient is a vague historian stating his heart stopped a few months ago and was resuscitated after CPR and defibrillation. He presents 1 hour after an episode of unresponsiveness after heavy drinking. This was witnessed by friends who believed he was pulseless and initiated CPR. EMS finds him awake but confused with unremarkable vitals. He is brought to the emergency room for evaluation. His extensive work-up is unremarkable with exception to a macrocytic anemia and alcohol level of 268. He is referred to the hospitalist for admission. He is awake and alert and conversational in no acute distress. Past Medical History Cardiac Medical History: Reports: Myocardial Infarction, Hyperlipidema, Hypertension Pulmonary Medical History: Reports: Asthma, Bronchitis, Chronic Obstructive Pulmonary Disease (COPD), Pneumonia Endocrine Medical History: Reports: Diabetes Mellitus Type 2 Musculoskeltal Medical History: Reports: Arthritis Psychiatric Medical History: Reports: Alcohol Dependency, Tobacco Dependency Denies: Depression Past Surgical History Past Surgical History: Reports: Appendectomy, Orthopedic Surgery - orif left leg Social History Information Source: Patient Lives with: Family Smoking Status: Current Every Day Smoker Electronic Cigarette use?: No Number of Years Smokin Last Time Smoked: 07/26/2019 Frequency of Alcohol Use: Heavy Hx Recreational Drug Use: No Drugs: None Hx Prescription Drug Abuse: No - Advance Directive Resuscitation Status: Full Code Family History Family History: CAD, DM, Hyperlipidemia, Hypertension, Malignancy Parental Family History Reviewed: Yes Children Family History Reviewed: Yes Sibling(s) Family History Reviewed.: Yes Medication/Allergy Home Medications: Aspirin [Aspir-Low] 81 mg PO DAILY 03/16/19 Allergies/Adverse Reactions: No Known Allergies Allergy (Verified 08/11/18 12:14) Review of Systems Constitutional: ABSENT: chills, fever(s), headache(s), weight gain, weight loss Eyes: ABSENT: visual disturbances Ears: ABSENT: hearing changes Cardiovascular: ABSENT: chest pain, dyspnea on exertion, edema, orthropnea, palpitations Respiratory: ABSENT: cough, hemoptysis Gastrointestinal: ABSENT: abdominal pain, constipation, diarrhea, hematemesis, hematochezia, nausea, vomiting Genitourinary: ABSENT: dysuria, hematuria Musculoskeletal: ABSENT: joint swelling Integumentary: ABSENT: rash, wounds Neurological: ABSENT: abnormal gait, abnormal speech, confusion, dizziness, focal weakness, syncope Psychiatric: ABSENT: anxiety, depression, homidical ideation, suicidal ideation Endocrine: ABSENT: cold intolerance, heat intolerance, polydipsia, polyuria Hematologic/Lymphatic: ABSENT: easy bleeding, easy bruising Physical Exam Vital Signs: Temp Pulse Resp BP Pulse Ox 98.6 F 86 17 110/74 97 07/27/19 01:28 07/27/19 02:10 07/27/19 01:28 07/27/19 01:28 07/27/19 02:26 Intake & Output 07/25/19 07/26/19 07/27/19 11:59 11:59 11:59 Weight 64.8 kg General appearance: PRESENT: no acute distress, well-developed, well-nourished Head exam: PRESENT: atraumatic, normocephalic Eye exam: PRESENT: conjunctiva pink, EOMI, PERRLA. ABSENT: scleral icterus Ear exam: PRESENT: normal external ear exam Mouth exam: PRESENT: moist, tongue midline Neck exam: ABSENT: carotid bruit, JVD, lymphadenopathy, thyromegaly Respiratory exam: PRESENT: clear to auscultation jazmine. ABSENT: rales, rhonchi, wheezes Cardiovascular exam: PRESENT: RRR. ABSENT: diastolic murmur, rubs, systolic murmur Pulses: PRESENT: normal dorsalis pedis pul Vascular exam: PRESENT: normal capillary refill GI/Abdominal exam: PRESENT: normal bowel sounds, soft. ABSENT: distended, guarding, mass, organolmegaly, rebound, tenderness Rectal exam: PRESENT: deferred Extremities exam: PRESENT: full ROM. ABSENT: calf tenderness, clubbing, pedal edema Neurological exam: PRESENT: alert, awake, oriented to person, oriented to place, oriented to time, oriented to situation, CN II-XII grossly intact. ABSENT: motor sensory deficit Psychiatric exam: PRESENT: appropriate affect, normal mood. ABSENT: homicidal ideation, suicidal ideation Skin exam: PRESENT: dry, intact, warm. ABSENT: cyanosis, rash Results Laboratory Results: 07/26/19 20:07/26/19 20:20 07/26/19 07/26/1907/25/20 20:20 20:20 20:20 WBC 4.8 RBC 4.19 L Hgb 14.3 Hct 42.0 MCV 100 H MCH 34.3 H MCHC 34.2 RDW 13.3 Plt Count 189 Seg Neutrophils % 60.5 Retic Count (auto) Sodium 132.1 L Potassium 4.9 Chloride 101 Carbon Dioxide 23 Anion Gap 8 BUN 6 L Creatinine 0.61 Est GFR ( Amer) > 60 Glucose 86 Calcium 9.0 Iron TIBC % Saturation Transferrin Ferritin Total Bilirubin 0.4 AST 46 Alkaline Phosphatase 77 Total Protein 6.6 Albumin 4.0 Triglycerides Cholesterol LDL Cholesterol Direct VLDL Cholesterol HDL Cholesterol Vitamin B12 Folate TSH Urine Color YELLOW Urine Appearance CLEAR Urine pH 5.0 Ur Specific [place] 1.004 Urine Protein NEGATIVE Urine Glucose (UA) NEGATIVE Urine Ketones NEGATIVE Urine Blood NEGATIVE Urine Nitrite NEGATIVE Ur Leukocyte Esterase NEGATIVE Urine WBC (Auto) 0 Urine RBC (Auto) 1 07/26/19 07/26/19 07/26/19 20:20 20:20 20:20 WBC RBC Hgb Hct MCV MCH MCHC RDW Plt Count Seg Neutrophils % Retic Count (auto) 1.30 Sodium Potassium Chloride Carbon Dioxide Anion Gap BUN Creatinine Est GFR ( Amer) Glucose Calcium Iron 190.1 H TIBC 304 % Saturation 63 Transferrin Ferritin 277.00 Total Bilirubin AST Alkaline Phosphatase Total Protein Albumin Triglycerides 96 Cholesterol 170.28 LDL Cholesterol Direct 76 VLDL Cholesterol 19.0 HDL Cholesterol 96 Vitamin B12 237.0 L Folate 11.80 TSH 1.45 Urine Color Urine Appearance Urine pH Ur Specific [place] Urine Protein Urine Glucose (UA) Urine Ketones Urine Blood Urine Nitrite Ur Leukocyte Esterase Urine WBC (Auto) Urine RBC (Auto) 07/26/19 20:20 WBC RBC Hgb Hct MCV MCH MCHC RDW Plt Count Seg Neutrophils % Retic Count (auto) Sodium Potassium Chloride Carbon Dioxide Anion Gap BUN Creatinine Est GFR ( Amer) Glucose Calcium Iron TIBC % Saturation Transferrin 238.16 Ferritin Total Bilirubin AST Alkaline Phosphatase Total Protein Albumin Triglycerides Cholesterol LDL Cholesterol Direct VLDL Cholesterol HDL Cholesterol Vitamin B12 Folate TSH Urine Color Urine Appearance Urine pH Ur Specific [place] Urine Protein Urine Glucose (UA) Urine Ketones Urine Blood Urine Nitrite Ur Leukocyte Esterase Urine WBC (Auto) Urine RBC (Auto) 07/26/19 07/26/19 07/26/19 20:20 20:20 20:20 Creatine Kinase 185 H Troponin I < 0.012 NT-Pro-B Natriuret Pep 36 Impressions: Chest X-Ray 07/26/19 20:06 IMPRESSION: No evidence of active intrathoracic disease. Head CT 07/26/19 21:01 IMPRESSION: No acute intracranial normality. Mild chronic microvascular ischemic change with remote lacunar infarct located within the right thalamus. TECHNICAL DOCUMENTATION: Quality ID # [id number]: Final reports with documentation of one or more dose reduction techniques (e.g., Automated exposure control, adjustment of the mA and/or kV according to patient size, use of iterative reconstruction technique) copyright 2011 [email or web address]- All Rights Reserved Chest/Abdomen CTA 07/26/19 22:15 IMPRESSION: No evidence of pulmonary embolus. Lungs grossly clear . Assessment and Plan - Diagnosis (1) Syncope and collapse Is this a current diagnosis for this admission?: Yes Plan: Likely secondary to alcohol intoxication, IMCU observation, follow-up orthostatic blood pressures, serial cardiac enzymes (2) Alcohol abuse Is this a current diagnosis for this admission?: Yes Plan: Thiamine folate, no history of alcohol withdrawal DTs. (3) Alcohol intoxication Qualifiers: Complication of substance-induced condition: with unspecified complication Is this a current diagnosis for this admission?: Yes Plan: Supportive care and education (4) Macrocytic anemia Is this a current diagnosis for this admission?: Yes Plan: Likely B12 deficient given alcoholism. Follow-up anemia labs - Time Time Spent with patient: 25-34 minutes - Inpatient Certification Medical Necessity: Need Close Monitoring Due to Risk of Patient Decompensation
[2019-07-27] MEDS ORDERED: THIAMINE HCL INJ 200 MG/2 ML VIAL IV PRN (04:30)
[2019-07-27] MEDS ORDERED: FOLIC ACID INJ 5 MG/1 ML 10 ML VIAL IV PRN (04:31)
[2019-07-27 05:45] LABS: ABSOLUTE EOSINOPHILS # (AUTO) 0.1 10^3/uL (0.0-0.6); ABSOLUTE LYMPHOCYTES (AUTO) 0.8 10^3/uL (0.5-4.7); ABSOLUTE MONOCYTES (AUTO) 0.5 10^3/uL (0.1-1.4); ABSOLUTE NEUT (AUTO) 3.4 10^3/uL (1.7-8.2); BASOPHILS % (AUTO) 0.9 % (0-2); EOSINOPHILS % (AUTO) 2.6 % (0-6); HEMATOCRIT 41.4 % (37.9-51.0); HEMOGLOBIN 14.2 g/dL (13.5-17.0); MEAN CORPUSCULAR HEMOGLOBIN 34.1 pg (27.0-33.4); MEAN CORPUSCULAR HGB CONC 34.2 g/dL (32.0-36.0); MEAN CORPUSCULAR VOLUME 100 fl (80-97); MONOCYTES % (AUTO) 10.4 % (3-13); PLATELET COUNT 188 10^3/uL (150-450); RED BLOOD COUNT 4.15 10^6/uL (4.35-5.55); RED CELL DISTRIBUTION WIDTH 13.3 % (11.5-14.0); SEGMENTED NEUTROPHILS % (AUTO) 69.1 % (42-78); TOTAL CELLS COUNTED % (AUTO) 100 %; WHITE BLOOD COUNT 4.9 10^3/uL (4.0-10.5)
[2019-07-27] MEDS: THIAMINE HCL 100 MG, FOLIC ACID 1 MG in NORMAL SALINE 250 ML IV ONE ×2 (05:50→06:17)
[2019-07-27] MEDS: CYANOCOBALAMIN (VITAMIN B-12) INJ 1000 MCG/1 ML VIAL IM ONE ×2 (05:50→06:16)
[2019-07-27] MEDS ORDERED: HEPARIN SOD (PORCINE) 5,000 UNIT/ML 1 ML VIAL SUBCUT SCH (06:00)
[2019-07-27 06:11] LABS: ANION GAP 8 (5-19); BLOOD UREA NITROGEN 6 mg/dL (7-20); CALCIUM 9.5 mg/dL (8.4-10.2); CARBON DIOXIDE 23 mmol/L (22-30); CHLORIDE 105 mmol/L (98-107); GLUCOSE 83 mg/dL (75-110); POTASSIUM 4.4 mmol/L (3.6-5.0)
[2019-07-27] MEDS ORDERED: THIAMINE HCL INJ 200 MG/2 ML VIAL ONE (06:11)
[2019-07-27] MEDS ORDERED: CYANOCOBALAMIN (VITAMIN B-12) INJ 1000 MCG/1 ML VIAL ONE (06:11)
[2019-07-27] MEDS ORDERED: MAG HYDROX/AL HYDROX/SIMETH SUSP 30 ML UDCUP PO PRN (08:00)
[2019-07-27] MEDS ORDERED: ASPIRIN 81 MG TABLET, ENT COATED PO SCH (10:00)
--- NOTE | 2019-07-27 11:00 | PDOC DISCHARGE SUMMARY ---
Impression - Admit/DC Date/PCP Admission Date/Primary Care Provider: 07/26/19 23:37 [facility] Discharge Date: 07/27/19 - Discharge Diagnosis (1) Loss of consciousness Is this a current diagnosis for this admission?: Yes (2) Alcohol intoxication Is this a current diagnosis for this admission?: Yes (3) Orthostatic hypotension Is this a current diagnosis for this admission?: Yes (4) Vitamin B12 deficiency Is this a current diagnosis for this admission?: Yes (5) Macrocytosis without anemia Is this a current diagnosis for this admission?: Yes - Additional Information Resuscitation Status: Full Code Discharge Diet: Regular Referrals: [facility] [Outside] (PATIENT WILL HAVE TO CALL CLINIC AND ESTABLISH CARE SO A TELEMED CONFERENCE CALL CAN BE SCHEDULED.) Prescriptions: Cyanocobalamin (Vitamin B-12) [Vitamin B-12] 1,000 mcg PO DAILY #30 capsule Home Medications: Aspirin [Aspir-Low] 81 mg PO DAILY 03/16/19 Cyanocobalamin (Vitamin B-12) [Vitamin B-12] 1,000 mcg PO DAILY #30 capsule 07/27/19 History of Present Illiness History of Present Illness: According to admitting provider: ERYN BARLOW is a 58 year old male with a past medical history of COPD, 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 Patient is a vague historian stating his heart stopped a few months ago and was resuscitated after CPR and defibrillation. He presents 1 hour after an episode of unresponsiveness after heavy drinking. This was witnessed by friends who believed he was pulseless and initiated CPR. EMS finds him awake but confused with unremarkable vitals. He is brought to the emergency room for evaluation. His extensive work-up is unremarkable with exception to a macrocytic anemia and alcohol level of 268. He is referred to the hospitalist for admission. He is awake and alert and conversational in no acute distress. Hospital Course Hospital Course: Patient was admitted to the hospital for evaluation of loss of consciousness. It was reported that CPR was initiated by a neighbor after finding patient unconscious. However it is uncertain and actually unlikely that patient truly ever lost a pulse. On arrival of the emergency response service, patient was found to be awake but confused. In the ER, patient's alcohol level was elevated. Patient states that he drank about 10 beers yesterday. EKG showed no evidence of arrhythmia. No arrhythmia was documented to be noted on telemetry in the ER yesterday. Extensive blood work and lab studies including urinalysis, urine drug screen, CBC, CMP, iron studies, TSH, B12, folic acid, influenza, COVID-19, troponin, BNP were all unremarkable with exception of mild microcytosis without anemia and vitamin B12 deficiency secondary to chronic alcohol use. Orthostatic vital signs were positive and patient received IV fluids. Repeat orthostatics were negative this morning and patient is completely sober this morning. It is very much likely that patient never lost a pulse and was simply unconscious secondary to alcohol intoxication. It is also possible that patient could have had a syncopal episode due to orthostatic hypotension from dehydration from alcohol binge episode. Patient is completely stable at this time with normal vital signs and is being discharged safely with counseling on alcohol cessation and B12 supplements. Physical Exam Vital Signs: Temp Pulse Resp BP Pulse Ox 98.1 F 83 18 136/78 H 96 07/27/19 07:42 07/27/19 07:42 07/27/19 07:42 07/27/19 07:42 07/27/19 07:42 Intake & Output 07/26/19 07/27/19 07/28/19 06:59 06:59 06:59 Intake Total 251.2 Output Total 250 Balance 1.2 Weight 64.8 kg General appearance: PRESENT: no acute distress, cooperative Neck exam: ABSENT: JVD Respiratory exam: PRESENT: clear to auscultation jazmine, unlabored. ABSENT: crackles, wheezes Cardiovascular exam: PRESENT: RRR, +S1, +S2. ABSENT: diastolic murmur, gallop, irregular rhythm, systolic murmur, tachycardia Neurological exam: PRESENT: alert, awake, oriented to person, oriented to place, oriented to time, oriented to situation. ABSENT: CN II-XII grossly intact, aphasic Results Laboratory Results: WBC 4.9 10^3/uL (4.0-10.5) 07/27/19 05:16 RBC 4.15 10^6/uL (4.35-5.55) L 07/27/19 05:16 Hgb 14.2 g/dL (13.5-17.0) 07/27/19 05:16 Hct 41.4 % (37.9-51.0) 07/27/19 05:16 MCV 100 fl (80-97) H 07/27/19 05:16 MCH 34.1 pg (27.0-33.4) H 07/27/19 05:16 MCHC 34.2 g/dL (32.0-36.0) 07/27/19 05:16 RDW 13.3 % (11.5-14.0) 07/27/19 05:16 Plt Count 188 10^3/uL (150-450) 07/27/19 05:16 Lymph % (Auto) 17.0 % (13-45) 07/27/19 05:16 [place] % (Auto) 10.4 % (3-13) 07/27/19 05:16 Eos % (Auto) 2.6 % (0-6) 07/27/19 05:16 Baso % (Auto) 0.9 % (0-2) 07/27/19 05:16 Reticulocyte # 0.054 10^6/uL (0.028-0.122) 07/26/19 20:20 Absolute Neuts (auto) 3.4 10^3/uL (1.7-8.2) 07/27/19 05:16 Absolute Lymphs (auto) 0.8 10^3/uL (0.5-4.7) 07/27/19 05:16 Absolute Monos (auto) 0.5 10^3/uL (0.1-1.4) 07/27/19 05:16 Absolute Eos (auto) 0.1 10^3/uL (0.0-0.6) 07/27/19 05:16 Absolute Basos (auto) 0.0 10^3/uL (0.0-0.2) 07/27/19 05:16 Seg Neutrophils % 69.1 % (42-78) 07/27/19 05:16 Retic Count (auto) 1.30 % (0.66-2.85) 07/26/19 20:20 D-Dimer 0.77 ug/mL (0.00-0.50) H 07/26/19 20:20 Sodium 136.3 mmol/L (137-145) L 07/27/19 05:16 Potassium 4.4 mmol/L (3.6-5.0) 07/27/19 05:16 Chloride 105 mmol/L (98-107) 07/27/19 05:16 Carbon Dioxide 23 mmol/L (22-30) 07/27/19 05:16 Anion Gap 8 (5-19) 07/27/19 05:16 BUN 6 mg/dL (7-20) L 07/27/19 05:16 Creatinine 0.64 mg/dL (0.52-1.25) 07/27/19 05:16 Est GFR ( Amer) > 60 (>60) 07/27/19 05:16 Est GFR (MDRD) Non-Af > 60 (>60) 07/27/19 05:16 Glucose 83 mg/dL (75-110) 07/27/19 05:16 Calcium 9.5 mg/dL (8.4-10.2) 07/27/19 05:16 Iron 190.1 ug/dL (49-181) H 07/26/19 20:20 TIBC 304 ug/dL (250-450) 07/26/19 20:20 % Saturation 63 % 07/26/19 20:20 Transferrin 238.16 mg/dL (206.00-381.00) 07/26/19 20:20 Ferritin 277.00 ng/mL (17.9-464.0) 07/26/19 20:20 Total Bilirubin 0.4 mg/dL (0.2-1.3) 07/26/19 20:20 Direct Bilirubin 0.0 mg/dL (0.0-0.4) 07/26/19 20:20 Neonat Total Bilirubin Not Reportable 07/26/19 20:20 Neonat Direct Bilirubin Not Reportable 07/26/19 20:20 Neonat Indirect Bili Not Reportable 07/26/19 20:20 AST 46 U/L (17-59) 07/26/19 20:20 ALT 28 U/L (<50) 07/26/19 20:20 Alkaline Phosphatase 77 U/L (38-126) 07/26/19 20:20 Creatine Kinase 185 U/L (55-170) H 07/26/19 20:20 Troponin I < 0.012 ng/mL 07/26/19 20:20 NT-Pro-B Natriuret Pep 36 pg/mL (<125) 07/26/19 20:20 Total Protein 6.6 g/dL (6.3-8.2) 07/26/19 20:20 Albumin 4.0 g/dL (3.5-5.0) 07/26/19 20:20 Triglycerides 96 mg/dL (<150) 07/26/19 20:20 Cholesterol 170.28 mg/dL (0-200) 07/26/19 20:20 LDL Cholesterol Direct 76 mg/dL (<100) 07/26/19 20:20 VLDL Cholesterol 19.0 mg/dL (10-31) 07/26/19 20:20 HDL Cholesterol 96 mg/dL (>40) 07/26/19 20:20 Vitamin B12 237.0 pg/mL (239-931) L 07/26/19 20:20 Folate 11.80 ng/mL (>2.76) 07/26/19 20:20 TSH 1.45 uIU/mL (0.47-4.68) 07/26/19 20:20 Urine Color YELLOW 07/26/19 20:20 Urine Appearance CLEAR 07/26/19 20:20 Urine pH 5.0 (5.0-9.0) 07/26/19 20:20 Ur Specific [place] 1.004 07/26/19 20:20 Urine Protein NEGATIVE mg/dL (NEGATIVE) 07/26/19 20:20 Urine Glucose (UA) NEGATIVE mg/dL (NEGATIVE) 07/26/19 20:20 Urine Ketones NEGATIVE mg/dL (NEGATIVE) 07/26/19 20:20 Urine Blood NEGATIVE (NEGATIVE) 07/26/19 20:20 Urine Nitrite NEGATIVE (NEGATIVE) 07/26/19 20:20 Urine Bilirubin NEGATIVE (NEGATIVE) 07/26/19 20:20 Urine Urobilinogen NEGATIVE mg/dL (<2.0) 07/26/19 20:20 Ur Leukocyte Esterase NEGATIVE (NEGATIVE) 07/26/19 20:20 Urine WBC (Auto) 0 /HPF 07/26/19 20:20 Urine RBC (Auto) 1 /HPF 07/26/19 20:20 Squamous Epi Cells Auto <1 /HPF 07/26/19 20:20 Urine Mucus (Auto) RARE /LPF 07/26/19 20:20 Urine Ascorbic Acid NEGATIVE (NEGATIVE) 07/26/19 20:20 Urine Opiates Screen NEGATIVE 07/26/19 20:20 Urine Methadone Screen NEGATIVE 07/26/19 20:20 Ur Barbiturates Screen NEGATIVE 07/26/19 20:20 Ur Phencyclidine Scrn NEGATIVE 07/26/19 20:20 Ur Amphetamines Screen NEGATIVE 07/26/19 20:20 U Benzodiazepines Scrn NEGATIVE 07/26/19 20:20 Urine Cocaine Screen NEGATIVE 07/26/19 20:20 U Marijuana (THC) Screen NEGATIVE 07/26/19 20:20 Serum Alcohol 223 mg/dL (NONE DETECTED) 07/26/19 20:20 Influenza A (Rapid) NEGATIVE (NEGATIVE) 07/26/19 22:51 Influenza B (Rapid) NEGATIVE (NEGATIVE) 07/26/19 22:51 SARS-CoV-2 (PCR) NEGATIVE (NEGATIVE) 07/26/19 23:32 07/26/19 07/26/19 20:20 20:20 Troponin I < 0.012 NT-Pro-B Natriuret Pep 36 Impressions: Chest X-Ray 07/26/19 20:06 IMPRESSION: No evidence of active intrathoracic disease. Head CT 07/26/19 21:01 IMPRESSION: No acute intracranial normality. Mild chronic microvascular ischemic change with remote lacunar infarct located within the right thalamus. TECHNICAL DOCUMENTATION: Quality ID # [id number]: Final reports with documentation of one or more dose reduction techniques (e.g., Automated exposure control, adjustment of the mA and/or kV according to patient size, use of iterative reconstruction technique) copyright 2011 [employer]- All Rights Reserved Chest/Abdomen CTA 07/26/19 22:15 IMPRESSION: No evidence of pulmonary embolus. Lungs grossly clear . Plan Time Spent: Less than 30 Minutes Stroke Is this a Stroke Patient?: No Acute Heart Failure - Is this a Heart Failure Patient?: No
[2019-07-27 12:39] VITALS: BP 128/75
[2019-07-28] MEDS ORDERED: THIAMINE HCL 100 MG, FOLIC ACID 1 MG in NORMAL SALINE 250 ML IV SCH (10:00)
[2019-07-28] MEDS ORDERED: CYANOCOBALAMIN (VITAMIN B-12) INJ 1000 MCG/1 ML VIAL IM SCH (10:00)
== END 2019-07-27 13:04 | disposition home or self-care (01) | DRG 897 ==
LOC: ER 19:35 → EH 23:37 → 4S 07-27 02:05
PROVIDERS: ADMIT Internal Medicine; ATTEND Internal Medicine
DX: F10.129 Alcohol abuse with intoxication, unspecified (principal); R55 Syncope and collapse; D53.9 Nutritional anemia, unspecified; F17.210 Nicotine dependence, cigarettes, uncomplicated; J44.9 Chronic obstructive pulmonary disease, unspecified; E11.65 Type 2 diabetes mellitus with hyperglycemia; R41.82 Altered mental status, unspecified; E78.5 Hyperlipidemia, unspecified; I10 Essential (primary) hypertension; E53.8 Deficiency of other specified B group vitamins; Y90.7 Blood alcohol level of 200-239 mg/100 ml; Z86.73 Personal history of transient ischemic attack (TIA), and cerebral infarction without residual deficits; Z03.818 Encounter for observation for suspected exposure to other biological agents ruled out
CPT/HCPCS: 36415; 70450; 71045; 71275; 80048; 80053; 80061; 80307; 81001; 82550; 82607; 82728; 82746; 83540; 83550; 83880; 84443; 84466; 84484; 85025; 85045; 85379; 87635; 87804; 93005; 93010; 99285; J3411; J3420; J3490; J7050

== ENCOUNTER 2019-09-07 17:45 | Emergency (ER) | payer MEDICAID, OTHER ==
[2019-09-07 18:05] VITALS: BP 136/80
--- NOTE | 2019-09-07 18:13 | ER Document Report ---
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 Patient taken to bathroom, patient refused to use urinal my notes 58-year-old Karina Kothari arrives with chief complaint of COPD breathing problems despite having 4-5 nebulizer treatments per day. By medical history on computer it appears he has been admitted here on 07/26/[address] Gannon because of syncope and collapse. Patient has a history of ethanol abuse chest pain and COPD. Patient reports his symptoms have been present since 15 March and he has been here at this hospital least 4 5 times and would like some answers for why he has COPD. Patient has full sentences he sitting in 3 hallway; by medical records patient has a history of cocaine abuse alcohol abuse COPD positive smo ker past medical history of CVA diabetes reactive airway disease Patient has been seen multiple times in the ER.. And has been seen this year by multiple providers to include Dr. Miguel Angel Burton and Dr. Whatley for similar complaints but in April was seen by BABAR Burton because of suicidal ideation cocaine and alcohol abuse and depression after his recently passed . Today patient does not appear to have any sensorium changes and has some mild agitation but does not appear to have overt depression or suicidal or homicidal thoughts. Patient reports he is scheduled to see a supervisor white sugar soon and used to see community care but now sees on his low pulmonology and [facility]. 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 [place] [employer] construction and [employer]. 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 Babar hutton smokes 1/2 packs of cigarettes per day. He has been doing this since he was a teenager. He denies any exposure to COVID-19 coronavirus. He denies any fevers or chills. He denies any green sputum or white phlegm sore throat nuchal rigidity cephalgia extremity problems skin rash sore throat TRAVEL OUTSIDE OF THE [place] IN LAST 30 DAYS: No - HPI Onset: Just prior to arrival Onset/Duration: Constant, Persistent, Worse Quality of pain: Achy Severity: Mild Pain Level: 1 Associated symptoms: Shortness of breath Exacerbated by: Denies Relieved by: Denies Similar symptoms previously: Yes Recently seen / treated by doctor: Yes - Related Data Allergies/Adverse Reactions: No Known Allergies Allergy (Verified 09/07/19 18:29) Past Medical History - General Information source: Patient - Social History Smoking Status: Current Every Day Smoker Cigarette use (# per day): Yes Chew tobacco use (# tins/day): No Smoking Education Provided: Yes Frequency of alcohol use: Heavy Drug Abuse: Cocaine Lives with: Alone Family History: Reviewed & Not Pertinent, CAD, DM, Hyperlipidemia, Hypertension, Malignancy Patient has suicidal ideation: No Patient has homicidal ideation: No - Past Medical History Cardiac Medical History: Reports: Hx Heart Attack, Hx Hypercholesterolemia, Hx Hypertension Pulmonary Medical History: Reports: Hx Asthma, Hx Bronchitis, Hx COPD, Hx Pneumonia Neurological Medical History: Reports: Hx Cerebrovascular Accident Endocrine Medical History: Reports: Hx Diabetes Mellitus Type 2 Renal/ Medical History: Denies: Hx Peritoneal Dialysis Musculoskeletal Medical History: Reports Hx Arthritis, Reports Hx Musculoskeletal Trauma Skin Medical History: Reports Hx Cellulitis Psychiatric Medical History: Denies: Hx Depression Traumatic Medical History: Reports: Hx Fractures - Right ankle and leg Past Surgical History: Reports: Hx Appendectomy, Hx Orthopedic Surgery - orif left leg - Immunizations Immunizations up to date: Yes Hx Diphtheria, Pertussis, Tetanus Vaccination: Yes - PT UNSURE Review of Systems - Review of Systems Constitutional: See HPI, Weakness EENT: No symptoms reported Cardiovascular: See HPI, Chest pain Respiratory: See HPI, Short of breath Gastrointestinal: No symptoms reported Genitourinary: No symptoms reported Male Genitourinary: No symptoms reported Musculoskeletal: No symptoms reported Skin: No symptoms reported Hematologic/Lymphatic: No symptoms reported Neurological/Psychological: No symptoms reported Physical Exam - Vital signs Vitals: Temp Pulse Resp BP Pulse Ox 97.7 F 65 18 136/80 H 99 09/07/19 18:03 09/07/19 18:03 09/07/19 18:03 09/07/19 18:03 09/07/19 18:03 Interpretation: Normal - General General appearance: Alert - HEENT Head: Normocephalic, Atraumatic Eyes: Normal Pupils: PERRL Pharynx: Normal Neck: Normal - Respiratory Respiratory status: No respiratory distress Chest status: Nontender Breath sounds: Normal Chest palpation: Normal - Cardiovascular Rhythm: Regular Heart sounds: Normal auscultation Murmur: No - Abdominal Inspection: Normal Distension: No distension Bowel sounds: Normal Tenderness: Nontender Organomegaly: No organomegaly - Rectal Hemorrhoids: Other - deferred - Genitourinary Tenderness: Other - deferred - Back Back: Normal - Extremities General upper extremity: Normal inspection, Nontender, Normal color, Normal ROM, Normal temperature General lower extremity: Normal inspection, Nontender, Normal color, Normal ROM, Normal temperature, Normal weight bearing. No: Maria A's sign - Neurological Neuro grossly intact: Yes Cognition: Normal Orientation: AAOx4 Eden Coma Scale Eye Opening: Spontaneous Lesvia Coma Scale Verbal: Oriented Lesvia Coma Scale Motor: Obeys Commands Eden Coma Scale Total: 15 Speech: Normal Motor strength normal: LUE, RUE, LLE, RLE Sensory: Normal - Psychological Associated symptoms: Normal affect - Skin Skin Temperature: Warm Skin Moisture: Dry Course - Vital Signs Vital signs: Temp Pulse Resp BP Pulse Ox 98.7 F 65 18 136/80 H 99 09/07/19 18:30 09/07/19 18:03 09/07/19 18:03 09/07/19 18:03 09/07/19 18:03 Critical Care Note - Critical Care Note Total time excluding time spent on procedures (mins): 60 Comments: Patient advised Shelley SHAH that he wants to leave.. He was offered Decadron IM and B12 IM and vitamin pill p.o. and he consents to this. Discharge - Discharge Clinical Impression: COPD exacerbation, Alcohol abuse, Tobacco abuse CAD (coronary artery disease) Qualifiers: Coronary Disease-Associated Artery/Lesion type: unspecified vessel or lesion type [place] vs. transplanted heart: [place] heart Associated angina: without angina Qualified Code(s): I25.10 - Atherosclerotic heart disease of [place] coronary artery without angina pectoris Condition: Good Disposition: AGAINST MEDICAL ADVICE Additional Instructions: Continue with appointment with supervisor white sugar and with behavioral technician and with your private doctor. You have COPD as a smoker. Return to ER as needed take her usual medicines. Referrals: [facility] [Primary Care Provider] - Follow up as needed
[2019-09-07] MEDS ORDERED: DEXAMETHASONE SOD PHOS INJ 10 MG/1 ML VIAL IM ONE (18:49)
[2019-09-07] MEDS ORDERED: VITAMIN B COMPLEX TABLET PO ONE (18:49)
[2019-09-07] MEDS ORDERED: CYANOCOBALAMIN (VITAMIN B-12) INJ 1000 MCG/1 ML VIAL IM ONE (18:49)
--- NOTE | 2019-09-07 18:52 | RADIOLOGY REPORT (SQ) ---
EXAM DESCRIPTION: CHEST SINGLE VIEW IMAGES COMPLETED DATE/TIME: 09/07/2019 6:37 pm REASON FOR STUDY: sob COMPARISON: 07/26/2019 EXAM PARAMETERS: NUMBER OF VIEWS: One view. TECHNIQUE: Single frontal radiographic view of the chest acquired. RADIATION DOSE: NA LIMITATIONS: None. FINDINGS: LUNGS AND PLEURA: Mild hyperexpansion of the lungs. No infiltrate, effusion, or mass. MEDIASTINUM AND HILAR STRUCTURES: No masses. Contour normal. HEART AND VASCULAR STRUCTURES: Heart normal in size. Normal vasculature. BONES: No acute findings. HARDWARE: None in the chest. OTHER: No other significant finding. IMPRESSION: Mild chronic lung changes with no acute cardiopulmonary finding. TECHNICAL DOCUMENTATION: JOB ID: [id number] 2010 [employer]- All Rights Reserved Reading location - IP/workstation name: [email or web address]
== END 2019-09-07 19:17 | disposition left against medical advice (07) ==
LOC: ER 17:45
DX: J44.1 Chronic obstructive pulmonary disease with (acute) exacerbation (principal); I25.10 Atherosclerotic heart disease of native coronary artery without angina pectoris; F10.10 Alcohol abuse, uncomplicated; F17.210 Nicotine dependence, cigarettes, uncomplicated; R07.9 Chest pain, unspecified; R06.02 Shortness of breath; R45.1 Restlessness and agitation; I25.2 Old myocardial infarction; I10 Essential (primary) hypertension; E11.9 Type 2 diabetes mellitus without complications
CPT/HCPCS: 99291; 96372; 71045; J3420; J1100; J3490

== ENCOUNTER 2019-10-14 17:48 | Emergency (ER) | payer MEDICAID ==
[2019-10-14 19:16] LABS: APPEARANCE,URINE CLEAR; BILIRUBIN,URINE NEGATIVE (NEGATIVE); COLOR,URINE STRAW; GLUCOSE, URINE NEGATIVE (NEGATIVE); KETONES,URINE NEGATIVE (NEGATIVE); LEUKOCYTE ESTERASE,URINE NEGATIVE (NEGATIVE); NITRITE,URINE NEGATIVE (NEGATIVE); PROTEIN,URINE NEGATIVE (NEGATIVE); URINE SPECIFIC GRAVITY 1.002; UROBILINOGEN,URINE NEGATIVE mg/dL (<2.0)
[2019-10-14 19:34] LABS: URINE AMPHETAMINES SCREEN NEGATIVE; URINE BARBITURATES SCREEN NEGATIVE; URINE MARIJUANA (THC) SCREEN NEGATIVE; URINE METHADONE SCREEN NEGATIVE; URINE PHENCYCLIDINE SCREEN NEGATIVE
[2019-10-14 19:35] LABS: URINE BENZODIAZEPINES SCREEN UNCONFIRMED POSITIVE; URINE COCAINE SCREEN UNCONFIRMED POSITIVE
[2019-10-14] MEDS ORDERED: HALOPERIDOL LACTATE INJ 5 MG/1 ML VIAL IM ONE (19:49)
[2019-10-14] MEDS ORDERED: LORAZEPAM INJ 2 MG/1 ML VIAL IV ONE ×2 (20:10)
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
[2019-10-14 20:53] LABS: ABSOLUTE EOSINOPHILS # (AUTO) 0.2 10^3/uL (0.0-0.6); ABSOLUTE LYMPHOCYTES (AUTO) 0.9 10^3/uL (0.5-4.7); ABSOLUTE MONOCYTES (AUTO) 0.3 10^3/uL (0.1-1.4); ABSOLUTE NEUT (AUTO) 1.5 10^3/uL (1.7-8.2); BASOPHILS % (AUTO) 0.9 % (0-2); EOSINOPHILS % (AUTO) 5.2 % (0-6); HEMATOCRIT 41.8 % (37.9-51.0); HEMOGLOBIN 14.2 g/dL (13.5-17.0); MEAN CORPUSCULAR HEMOGLOBIN 34.2 pg (27.0-33.4); MEAN CORPUSCULAR HGB CONC 33.9 g/dL (32.0-36.0); MEAN CORPUSCULAR VOLUME 101 fl (80-97); MONOCYTES % (AUTO) 10.3 % (3-13); PLATELET COUNT 191 10^3/uL (150-450); RED BLOOD COUNT 4.15 10^6/uL (4.35-5.55); RED CELL DISTRIBUTION WIDTH 13.3 % (11.5-14.0); SEGMENTED NEUTROPHILS % (AUTO) 51.6 % (42-78); TOTAL CELLS COUNTED % (AUTO) 100 %; WHITE BLOOD COUNT 2.9 10^3/uL (4.0-10.5)
[2019-10-14 21:10] LABS: ALBUMIN 3.9 g/dL (3.5-5.0); ALCOHOL 229 mg/dL (NONE DETECTED); ALKALINE PHOSPHATASE 61 U/L (38-126); ANION GAP 7 (5-19); ASPARTATE AMINO TRANSFERASE 52 U/L (17-59); BILIRUBIN,TOTAL 0.4 mg/dL (0.2-1.3); BLOOD UREA NITROGEN 5 mg/dL (7-20); CARBON DIOXIDE 24 mmol/L (22-30); CHLORIDE 101 mmol/L (98-107); GLUCOSE 83 mg/dL (75-110); POTASSIUM 4.2 mmol/L (3.6-5.0); TOTAL PROTEIN 6.4 g/dL (6.3-8.2)
--- NOTE | 2019-10-14 21:12 | RADIOLOGY REPORT (SQ) ---
CLINICAL INDICATION: dyspnea. TECHNIQUE: A single portable AP view was obtained of the chest at 2053 hours. COMPARISON: September 07, 2019. FINDINGS: The cardiomediastinal silhouette is stable. The lungs are grossly clear. No evidence of effusion or pneumothorax. Mild presumed chronic interstitial change. IMPRESSION: No evidence of active intrathoracic disease.
[2019-10-14 22:23] LABS: NT PRO BNP 35 pg/mL (<125)
[2019-10-14 22:24] LABS: TROPONIN I < 0.012 ng/mL
[2019-10-15] MEDS ORDERED: NORMAL SALINE 1000 ML 1,000 ML IV ONE (00:28)
--- NOTE | 2019-10-15 06:47 | ER Document Report ---
Doctor's Note Notes: 10/15/19 06:47 Patient turned over to me after being cleared by Dr. Santiago pending psych eval when patient is sober in a.m. Dr. Shaw has assumed care of this patient.
[2019-10-15 11:33] VITALS: BP 141/70
--- NOTE | 2019-10-15 17:58 | EKG REPORT ---
SEVERITY:- NORMAL ECG - SINUS RHYTHM : Confirmed by: Deja Starr MD 15-Oct-2019 17:57:58
--- NOTE | 2019-10-15 17:58 | EKG REPORT ---
SEVERITY:- NORMAL ECG - SINUS RHYTHM : Confirmed by: Deja Starr MD 15-Oct-2019 17:58:02
== END 2019-10-15 11:48 | disposition home or self-care (01) ==
LOC: ER 17:48
DX: R55 Syncope and collapse (principal); F10.929 Alcohol use, unspecified with intoxication, unspecified; F12.10 Cannabis abuse, uncomplicated; J44.9 Chronic obstructive pulmonary disease, unspecified; R07.9 Chest pain, unspecified; F17.200 Nicotine dependence, unspecified, uncomplicated; I10 Essential (primary) hypertension; E11.9 Type 2 diabetes mellitus without complications
CPT/HCPCS: 93005 ×2; 99285; 96372; 96361; 96374; 36415; 80307 ×2; 85025; 80053; 81001; 84484; 83880; 71045; 93010 ×2; J1630; J2060; J7030

== ENCOUNTER 2019-10-27 19:09 | Emergency (ER) | payer MEDICAID ==
--- NOTE | 2019-10-27 19:36 | EKG REPORT ---
SEVERITY:- NORMAL ECG - SINUS RHYTHM : Confirmed by: Cristino Perez MD 27-Oct-2019 19:36:27
[2019-10-27 20:00] VITALS: BP 132/88
--- NOTE | 2019-10-27 20:29 | ER Document Report ---
ED General - General Chief Complaint: Chest Pain Stated Complaint: WEAKNESS Time Seen by Provider: 10/27/19 19:46 Primary Care Provider: [facility] [NO LOCAL MD] - Follow up as needed TRAVEL OUTSIDE OF THE [place] IN LAST 30 DAYS: No - HPI Notes: Chief complaint: Chest pain and alcohol intoxication History of present illness: Mr. Barrett is a 58-year-old male with a history of alcoholism, cocaine abuse, severe COPD and CAD who was previously admitted to the ICU and intubated for respiratory failure in April of this year. He lives alone. He continues to drink heavily and smokes in excess of 1 pack cigarettes per day. He apparently developed back and chest pain at home this afternoon and called his neighbor stating that he needed help. When they arrive d they found him lying on the kitchen floor and they called EMS. When EMS arrived the patient initially declined transport and said he was fine denying any symptoms. When EMS got ready to leave he again said he was having some chest pain and decided he would come to the hospital be rechecked. I note that I saw this patient approximately 2 weeks ago in this emergency department with an identical presentation. At that time he tried to walk out of the emergency department and did not have any family or friends here to take him home. We ultimately placed him on medical hold and IVC to him overnight to get a cardiac work-up which all turned out to be negative. He went home the next day. Upon arrival here patient has a normal EKG unchanged from baseline. He once again has announced that he wants to go home. This time he is alert and oriented x3 although he does have a strong odor of alcohol present some mild slurring of speech. He has a family member here who is willing to take him home and he wishes to sign out AMA. He denies any ongoing pain or other symptoms. - Related Data Allergies/Adverse Reactions: No Known Allergies Allergy (Verified 10/27/19 19:44) Home Medications: aspirin. doxycyline. prednisone. albuterol Past Medical History - General Information source: Patient, Emergency Med Personnel, [facility] Records - Social History Smoking Status: Current Every Day Smoker Frequency of alcohol use: Heavy Drug Abuse: Cocaine Family History: Reviewed & Not Pertinent, CAD, DM, Hyperlipidemia, Hypertension, Malignancy - Past Medical History Cardiac Medical History: Reports: Hx Heart Attack, Hx Hypercholesterolemia, Hx Hypertension Pulmonary Medical History: Reports: Hx Asthma, Hx Bronchitis, Hx COPD, Hx Pneumonia Neurological Medical History: Reports: Hx Cerebrovascular Accident Endocrine Medical History: Reports: Hx Diabetes Mellitus Type 2 Renal/ Medical History: Denies: Hx Peritoneal Dialysis Musculoskeletal Medical History: Reports Hx Arthritis, Reports Hx Musculoskeletal Trauma Skin Medical History: Reports Hx Cellulitis Psychiatric Medical History: Denies: Hx Depression Traumatic Medical History: Reports: Hx Fractures - Right ankle and leg Past Surgical History: Reports: Hx Appendectomy, Hx Orthopedic Surgery - orif left leg - Immunizations Immunizations up to date: Yes Hx Diphtheria, Pertussis, Tetanus Vaccination: Yes - PT UNSURE Review of Systems - Review of Systems Notes: Constitutional: Negative for fever. HENT: Negative for sore throat. Eyes: Negative for visual changes. Cardiovascular: Earlier chest pain now resolved. Respiratory: Negative for shortness of breath. Gastrointestinal: Negative for abdominal pain, vomiting or diarrhea. Genitourinary: Negative for dysuria. Musculoskeletal: Negative for back pain. Skin: Negative for rash. Neurological: Negative for headaches, focal weakness or numbness. 10 point ROS negative except as marked above and in HPI. Physical Exam - Vital signs Vitals: Temp Resp BP Pulse Ox 98.0 F 16 103/76 98 10/27/19 19:40 10/27/19 19:40 10/27/19 19:40 10/27/19 19:40 - Notes Notes: GENERAL: Male patient approximately stated age appearing in no acute distress. Strong odor of alcohol present. Mild slurring of speech. SKIN: Good turgor no rashes. HEAD: Normocephalic atraumatic. EYES: PERRLA. EOMI. Conjunctivae and sclerae clear. EARS: CANALS AND TMS CLEAR. NOSE: CLEAR. MOUTH: Moist mucosa. Good dentition. No stridor or edema. No drooling. NECK: Supple. No masses or thyromegaly. No adenopathy. Carotids 2+ without bruits. No JVD. BACK: Symmetrical without tenderness. CHEST: Respirations unlabored. Breath sounds clear and symmetrical. HEART: Regular rhythm. No murmur gallop or rub. ABDOMEN: Soft nontender without masses, organomegaly or rebound. Bowel sounds normally active. No bruits. GENITALIA: Deferred. EXTREMITIES: No edema. No calf tenderness. Cap refill less than 1.5 seconds. Dorsalis pedis and posterior tibial pulses 3+ and symmetrical. NEUROLOGICAL: GCS 15. Alert and oriented x3. Normal gait. Fluent speech. Cranial nerves II through XII intact. Sensorimotor and cerebellar normal. Normal tone. PSYCHIATRIC: Mildly belligerent affect. Course - Re-evaluation Re-evalutation: 10/27/19 21:06 Initial EKG is normal and unchanged from baseline. He wishes to leave AMA and is signing himself out. He has a responsible family member who will oversee his situation at home and return him here for new or worsening symptoms. - Vital Signs Vital signs: Temp Pulse Resp BP Pulse Ox 98.0 F 22 H 132/88 H 97 10/27/19 19:40 10/27/19 19:44 10/27/19 19:44 10/27/19 19:44 - Laboratory Result Diagrams: 10/27/19 19:23 10/27/19 19:23 Laboratory results interpreted by me: 10/27/19 19:23 WBC 3.6 L RBC 4.02 L MCV 102 H MCH 33.9 H - EKG Interpretation by Me Additional EKG results interpreted by me: 10/27/19 21:07 Twelve-lead EKG from 1924 hrs. reviewed contemporaneously by me showing normal sinus rhythm with a rate of 75 and a normal QRS axis of +71 degrees. Intervals are normal. There are no acute ST/T wave changes and the tracing is unchanged from prior study of 10/15/2019. Impression normal EKG. Indication for current study: Chest pain. Discharge - Discharge Clinical Impression: Chest pain Qualifiers: Chest pain type: unspecified Qualified Code(s): R07.9 - Chest pain, unspecified Disposition: AGAINST MEDICAL ADVICE [facility]: [facility] [NO [facility]AL MD] - Follow up as needed
[2019-10-27 20:37] LABS: ABSOLUTE EOSINOPHILS # (AUTO) 0.1 10^3/uL (0.0-0.6); ABSOLUTE LYMPHOCYTES (AUTO) 1.2 10^3/uL (0.5-4.7); ABSOLUTE MONOCYTES (AUTO) 0.4 10^3/uL (0.1-1.4); ABSOLUTE NEUT (AUTO) 1.8 10^3/uL (1.7-8.2); BASOPHILS % (AUTO) 1.2 % (0-2); EOSINOPHILS % (AUTO) 3.3 % (0-6); HEMATOCRIT 41.1 % (37.9-51.0); HEMOGLOBIN 13.7 g/dL (13.5-17.0); LYMPHOCYTES % (AUTO) 33.3 % (13-45); MEAN CORPUSCULAR HEMOGLOBIN 33.9 pg (27.0-33.4); MEAN CORPUSCULAR HGB CONC 33.3 g/dL (32.0-36.0); MEAN CORPUSCULAR VOLUME 102 fl (80-97); PLATELET COUNT 168 10^3/uL (150-450); RED BLOOD COUNT 4.02 10^6/uL (4.35-5.55); RED CELL DISTRIBUTION WIDTH 13.6 % (11.5-14.0); SEGMENTED NEUTROPHILS % (AUTO) 51.2 % (42-78); TOTAL CELLS COUNTED % (AUTO) 100 %; WHITE BLOOD COUNT 3.6 10^3/uL (4.0-10.5)
--- NOTE | 2019-10-27 20:38 | RADIOLOGY REPORT (SQ) ---
CLINICAL INDICATION: cp. TECHNIQUE: A single portable AP view was obtained of the chest at 1956 hours. COMPARISON: September 14, 2019. FINDINGS: The cardiomediastinal silhouette is top normal but stable. The lungs are grossly clear. No evidence of effusion or pneumothorax. The visualized bones are unremarkable. Chronic change IMPRESSION: No evidence of active intrathoracic disease.
[2019-10-27 20:54] LABS: ALCOHOL 278 mg/dL (NONE DETECTED); ALKALINE PHOSPHATASE 56 U/L (38-126); ASPARTATE AMINO TRANSFERASE 82 U/L (17-59); BILIRUBIN,TOTAL 0.4 mg/dL (0.2-1.3); BLOOD UREA NITROGEN 7 mg/dL (7-20); CALCIUM 8.9 mg/dL (8.4-10.2); GLUCOSE 82 mg/dL (75-110); POTASSIUM 5.1 mmol/L (3.6-5.0); TOTAL PROTEIN 6.6 g/dL (6.3-8.2)
[2019-10-27 20:59] LABS: CARBON DIOXIDE 27 mmol/L (22-30); CHLORIDE 102 mmol/L (98-107)
[2019-10-27 21:14] LABS: ANION GAP 4 (5-19)
[2019-10-27 21:19] LABS: APPEARANCE,URINE CLEAR; BILIRUBIN,URINE NEGATIVE (NEGATIVE); COLOR,URINE STRAW; GLUCOSE, URINE NEGATIVE (NEGATIVE); KETONES,URINE NEGATIVE (NEGATIVE); LEUKOCYTE ESTERASE,URINE NEGATIVE (NEGATIVE); NITRITE,URINE NEGATIVE (NEGATIVE); PROTEIN,URINE NEGATIVE (NEGATIVE); URINE SPECIFIC GRAVITY 1.004; UROBILINOGEN,URINE NEGATIVE mg/dL (<2.0)
[2019-10-27 21:42] LABS: URINE AMPHETAMINES SCREEN NEGATIVE; URINE BARBITURATES SCREEN NEGATIVE; URINE BENZODIAZEPINES SCREEN NEGATIVE; URINE COCAINE SCREEN NEGATIVE; URINE MARIJUANA (THC) SCREEN NEGATIVE; URINE METHADONE SCREEN NEGATIVE; URINE PHENCYCLIDINE SCREEN NEGATIVE
--- NOTE | 2019-10-29 15:25 | EKG REPORT ---
SEVERITY:- ABNORMAL ECG - PROBABLE SINUS RHYTHM NONSPECIFIC INTRAVENTRICULAR CONDUCTION DELAY : Confirmed by: Cristino Perez MD 29-Oct-2019 15:25:19
== END 2019-10-27 20:20 | disposition left against medical advice (07) ==
LOC: ER 19:09
DX: R07.9 Chest pain, unspecified (principal); F10.20 Alcohol dependence, uncomplicated; F14.10 Cocaine abuse, uncomplicated; R47.81 Slurred speech; J44.9 Chronic obstructive pulmonary disease, unspecified; I25.10 Atherosclerotic heart disease of native coronary artery without angina pectoris; I10 Essential (primary) hypertension; I25.2 Old myocardial infarction; E11.9 Type 2 diabetes mellitus without complications; F17.210 Nicotine dependence, cigarettes, uncomplicated; Z79.82 Long term (current) use of aspirin; Z79.899 Other long term (current) drug therapy; Z79.52 Long term (current) use of systemic steroids; Z79.2 Long term (current) use of antibiotics; Z82.49 Family history of ischemic heart disease and other diseases of the circulatory system; Z53.20 Procedure and treatment not carried out because of patient's decision for unspecified reasons
CPT/HCPCS: 36415; 71045; 80053; 80307; 81001; 83735; 84484; 85025; 93005; 93010; 99285

== ENCOUNTER 2019-11-23 17:11 | Emergency (ER) | payer MEDICAID ==
[2019-11-23 17:21] VITALS: BP 113/76
[2019-11-23] MEDS ORDERED: KETOROLAC TROMETHAMINE INJ/PF 30 MG/1 ML SDV IV ONE (17:28)
[2019-11-23] MEDS ORDERED: LORAZEPAM INJ 2 MG/1 ML VIAL IV ONE (17:28)
[2019-11-23] MEDS ORDERED: NORMAL SALINE 1000 ML 1,000 ML IV PRN (17:28)
--- NOTE | 2019-11-23 17:30 | ER Document Report ---
ED Medical Screen (RME) - General Chief Complaint: ETOH Abuse Stated Complaint: ALCOHOL USE Time Seen by Provider: 11/23/19 17:21 Mode of Arrival: Medic Information source: Patient, Emergency Med Personnel Notes: 58-year-old Karina Kothari who has been here many times because of alcohol abuse arrives via EMS after complaining of respiratory distress. Upon EMS arrival he was found intoxicated on the floor. Patient reports he been having left-sided chest pain all morning and saw Dr. 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 Patient denies any trauma fever chills cough or cold or abuse. He does advise he has been drinking a little. He denies any nausea vomiting shortness of breath cough or cold symptoms. TRAVEL OUTSIDE OF THE [place] IN LAST 30 DAYS: No - HPI Onset: This morning Onset/Duration: Sudden, Persistent Quality of pain: Achy Severity: Moderate Pain Level: 2 Associated Symptoms: Chest pain, Shortness of breath Exacerbated by: Movement Relieved by: Remaining still Similar symptoms previously: Yes - Related Data Allergies/Adverse Reactions: No Known Allergies Allergy (Verified 10/27/19 19:44) Past Medical History - General Information source: Patient, Emergency Med Personnel - Social History Cigarette use (# per day): Yes Chew tobacco use (# tins/day): No Frequency of alcohol use: Heavy Drug Abuse: None Lives with: Family - Past Medical History Cardiac Medical History: Reports: Hx Heart Attack, Hx Hypercholesterolemia, Hx Hypertension Pulmonary Medical History: Reports: Hx Asthma, Hx Bronchitis, Hx COPD, Hx Pneumonia Neurological Medical History: Reports: Hx Cerebrovascular Accident Endocrine Medical History: Reports: Hx Diabetes Mellitus Type 2 Renal/ Medical History: Denies: Hx Peritoneal Dialysis Musculoskeltal Medical History: Reports Hx Arthritis, Reports Hx Musculoskeletal Trauma Skin Medical History: Reports Hx Cellulitis Psychiatric Medical History: Denies: Hx Depression Traumatic Medical History: Reports: Hx Fractures - Right ankle and leg Past Surgical History: Reports: Hx Appendectomy, Hx Orthopedic Surgery - orif left leg - Immunizations Immunizations up to date: Yes Hx Diphtheria, Pertussis, Tetanus Vaccination: Yes - PT UNSURE Review of Systems - Review of Systems Constitutional: See HPI, Weakness EENT: No symptoms reported Cardiovascular: No symptoms reported Respiratory: No symptoms reported Gastrointestinal: No symptoms reported Genitourinary: No symptoms reported Male Genitourinary: No symptoms reported Musculoskeletal: No symptoms reported Skin: See HPI, Dryness Hematologic/Lymphatic: No symptoms reported Neurological/Psychological: See HPI, Weakness, Other - Alcohol intoxication Physical Exam - Vital signs Vitals: Temp Pulse Resp BP Pulse Ox 98.1 F 92 20 113/76 100 11/23/19 17:18 11/23/19 17:18 11/23/19 17:18 11/23/19 17:18 11/23/19 17:18 Interpretation: Normal - General General appearance: Alert - HEENT Head: Normocephalic, Atraumatic Eyes: Normal Pupils: PERRL Mouth/Lips: Normal Mucous membranes: Dry Pharynx: Normal Neck: Normal - Respiratory Respiratory status: No respiratory distress Chest status: Tender - Left-sided chest tenderness on palpation Breath sounds: Normal Chest palpation: Normal - Cardiovascular Rhythm: Regular Heart sounds: Normal auscultation Murmur: No - Abdominal Inspection: Normal Distension: No distension Bowel sounds: Normal Tenderness: Nontender Organomegaly: No organomegaly - Rectal Prostate: Other - deferred - Genitourinary Scrotum: Other - deferred - Back Back: Normal - Extremities General upper extremity: Normal inspection General lower extremity: Normal inspection - Neurological Neuro grossly intact: Yes Cognition: Normal Orientation: AAOx4 [place] Coma Scale Eye Opening: Spontaneous [place] Coma Scale Verbal: Oriented [place] Coma Scale Motor: Obeys Commands [place] Coma Scale Total: 15 Speech: Normal Motor strength normal: LUE, RUE, LLE, RLE Sensory: Normal - Psychological Associated symptoms: Anxious - Skin Skin Temperature: Warm Skin Moisture: Dry Course - Vital Signs Vital signs: Temp Pulse Resp BP Pulse Ox 98.1 F 92 20 113/76 100 11/23/19 17:18 11/23/19 17:18 11/23/19 17:18 11/23/19 17:18 11/23/19 17:18 Doctor's Discharge - Discharge Clinical Impression: Alcohol abuse, Tobacco abuse, History of coronary artery disease, Chest pain at rest
== END 2019-11-23 18:11 | disposition left against medical advice (07) ==
LOC: ER 17:11
DX: F10.129 Alcohol abuse with intoxication, unspecified (principal); R07.9 Chest pain, unspecified; R06.02 Shortness of breath; F17.210 Nicotine dependence, cigarettes, uncomplicated; E11.9 Type 2 diabetes mellitus without complications; E78.00 Pure hypercholesterolemia, unspecified; I10 Essential (primary) hypertension; I25.2 Old myocardial infarction; Z86.73 Personal history of transient ischemic attack (TIA), and cerebral infarction without residual deficits
CPT/HCPCS: 99281

== ENCOUNTER 2019-12-04 15:30 | Emergency (ER) | payer MEDICAID, OTHER ==
[2019-12-04 15:57] LABS: ABSOLUTE BASOPHILS # (AUTO) 0.1 10^3/uL (0.0-0.2); ABSOLUTE EOSINOPHILS # (AUTO) 0.1 10^3/uL (0.0-0.6); ABSOLUTE LYMPHOCYTES (AUTO) 0.8 10^3/uL (0.5-4.7); ABSOLUTE MONOCYTES (AUTO) 0.5 10^3/uL (0.1-1.4); ABSOLUTE NEUT (AUTO) 3.1 10^3/uL (1.7-8.2); BASOPHILS % (AUTO) 1.2 % (0-2); EOSINOPHILS % (AUTO) 2.5 % (0-6); HEMATOCRIT 43.1 % (37.9-51.0); HEMOGLOBIN 14.6 g/dL (13.5-17.0); LYMPHOCYTES % (AUTO) 17.4 % (13-45); MEAN CORPUSCULAR HEMOGLOBIN 34.9 pg (27.0-33.4); MEAN CORPUSCULAR HGB CONC 33.9 g/dL (32.0-36.0); MEAN CORPUSCULAR VOLUME 103 fl (80-97); MONOCYTES % (AUTO) 11.3 % (3-13); PLATELET COUNT 170 10^3/uL (150-450); RED BLOOD COUNT 4.19 10^6/uL (4.35-5.55); RED CELL DISTRIBUTION WIDTH 13.6 % (11.5-14.0); SEGMENTED NEUTROPHILS % (AUTO) 67.6 % (42-78); TOTAL CELLS COUNTED % (AUTO) 100 %; WHITE BLOOD COUNT 4.6 10^3/uL (4.0-10.5)
--- NOTE | 2019-12-04 16:11 | ER Document Report ---
ED General - General Stated Complaint: UNRESPONSIVE Time Seen by Provider: 12/04/19 15:59 Mode of Arrival: Medic Information source: Patient Notes: Patient is a 58-year-old male presenting to emergency room for complaint of unresponsiveness. Patient presented to emergency room via EMS with EMS reporting that patient was found unresponsive in his vehicle by a bystander. Reports CPR was in progress upon their arrival, however patient did have a pulse. EMS reports upon their arrival patient was unresponsive with an initial respiratory rate of 4 breaths/min. EMS reports administering 2 mg of Narcan with patient becoming alert. Patient currently presents alert and oriented x3 in no acute distress. Reports intermittent chest tightness and shortness of breath, reporting symptoms have been present for the past year. Patient denies acute concerns. Patient denies recent fevers, nausea, vomiting, diarrhea, we akness, or sensory changes. Patient reports daily alcohol use of 6 beers per day. Reports drinking 2 beers today. Patient denies recreational drug use. Patient sitting on stretcher. Breath even and unlabored on room air. Speaking in clear and complete sentences. Patient moving all extremities without difficulty. TRAVEL OUTSIDE OF THE [place] IN LAST 30 DAYS: No - Related Data Allergies/Adverse Reactions: No Known Allergies Allergy (Verified 10/27/19 19:44) Past Medical History - General Information source: Patient - Social History Smoking Status: Current Every Day Smoker Frequency of alcohol use: Occasional Drug Abuse: None - denies Family History: Reviewed & Not Pertinent, CAD, DM, Hyperlipidemia, Hypertension, Malignancy - Past Medical History Cardiac Medical History: Reports: Hx Heart Attack, Hx Hypercholesterolemia, Hx Hypertension Pulmonary Medical History: Reports: Hx Asthma, Hx Bronchitis, Hx COPD, Hx Pneumonia Neurological Medical History: Reports: Hx Cerebrovascular Accident Endocrine Medical History: Reports: Hx Diabetes Mellitus Type 2 Renal/ Medical History: Denies: Hx Peritoneal Dialysis Musculoskeletal Medical History: Reports Hx Arthritis, Reports Hx Musculoskeletal Trauma Skin Medical History: Reports Hx Cellulitis Psychiatric Medical History: Denies: Hx Depression Traumatic Medical History: Reports: Hx Fractures - Right ankle and leg Past Surgical History: Reports: Hx Appendectomy, Hx Orthopedic Surgery - orif left leg - Immunizations Immunizations up to date: Yes Hx Diphtheria, Pertussis, Tetanus Vaccination: Yes - PT UNSURE Review of Systems - Review of Systems Constitutional: No symptoms reported EENT: No symptoms reported Cardiovascular: No symptoms reported Respiratory: No symptoms reported Gastrointestinal: See HPI Genitourinary: No symptoms reported Male Genitourinary: No symptoms reported Musculoskeletal: No symptoms reported Skin: No symptoms reported Hematologic/Lymphatic: No symptoms reported Neurological/Psychological: No symptoms reported Physical Exam - Vital signs Vitals: Resp BP Pulse Ox 27 H 151/99 H 98 12/04/19 15:37 12/04/19 15:37 12/04/19 15:37 - Notes Notes: PHYSICAL EXAMINATION: GENERAL: Well-appearing, well-nourished and in no acute distress. HEAD: Atraumatic, normocephalic. EYES: Pupils equal round and reactive to light, extraocular movements intact, sclera anicteric, conjunctiva are normal. ENT: Nares patent, oropharynx clear without exudates. Moist mucous membranes. NECK: Normal range of motion, supple without lymphadenopathy LUNGS: Breath sounds clear to auscultation bilaterally and equal. No wheezes rales or rhonchi. HEART: Regular rate and rhythm without murmurs ABDOMEN: Soft, nontender, nondistended abdomen. No guarding, no rebound. No masses appreciated. Musculoskeletal: Normal range of motion, no pitting or edema. No cyanosis. NEUROLOGICAL: Cranial nerves grossly intact. Normal speech, normal gait. Normal sensory, motor exams PSYCH: Normal mood, normal affect. SKIN: Warm, Dry, normal turgor, no rashes or lesions noted. Course - Re-evaluation Re-evalutation: Patient appears well, nontoxic. Apparently he was unresponsive for EMS, he was given Narcan and then became alert. At the time of our initial evaluation patient is alert, oriented, speaking in full complete sentences. He denies use of any drugs. He does have a history of EtOH abuse as well as drug abuse. He is homeless. He does complain of midsternal chest pain, states this pain has been going on for about a year, there is nothing new about the pain today. His work-up today was reassuring, normal troponin, no change on his EKG. He will be discharged home at this time. He does have a friend who is coming to pick him up. - Vital Signs Vital signs: Temp Pulse Resp BP Pulse Ox 18 137/87 H 98 12/04/19 18:01 12/04/19 18:01 12/04/19 18:01 - Laboratory Result Diagrams: 12/04/19 15:45 12/04/19 15:45 Laboratory results interpreted by me: 12/04/19 12/04/19 15:45 15:45 RBC 4.19 L MCV 103 H MCH 34.9 H Sodium 132.1 L Carbon Dioxide 20 L BUN 3 L - Diagnostic Test Radiology reviewed: Image reviewed, Reports reviewed - EKG Interpretation by Me EKG shows normal: Sinus rhythm, [place], Intervals, QRS Complexes Additional EKG results interpreted by me: Rate 75, QTc 434, there is some ST segment elevations however this is not in co nsecutive leads. There are no reciprocal changes. This is unchanged from his previous EKG on file here. Discharge - Discharge Clinical Impression: Homelessness Chest pain Qualifiers: Chest pain type: unspecified Qualified Code(s): R07.9 - Chest pain, unspecified Condition: Stable Disposition: HOME, SELF-CARE Additional Instructions: Your work-up today showed no life-threatening findings. Please keep the follow- up appointment you have with Dr. Burton for next month. Please consider utilizing the homeless nursing home for your sheltering needs. Return to the emergency department with any new or worsening concerns.
[2019-12-04 16:16] LABS: ALBUMIN 3.9 g/dL (3.5-5.0); ALKALINE PHOSPHATASE 65 U/L (38-126); ANION GAP 10 (5-19); ASPARTATE AMINO TRANSFERASE 41 U/L (17-59); BILIRUBIN,DIRECT 0.2 mg/dL (0.0-0.4); BILIRUBIN,TOTAL 0.7 mg/dL (0.2-1.3); BLOOD UREA NITROGEN 3 mg/dL (7-20); CALCIUM 9.7 mg/dL (8.4-10.2); CARBON DIOXIDE 20 mmol/L (22-30); CHLORIDE 102 mmol/L (98-107); GLUCOSE 87 mg/dL (75-110); POTASSIUM 3.8 mmol/L (3.6-5.0); TOTAL PROTEIN 6.4 g/dL (6.3-8.2)
--- NOTE | 2019-12-04 16:42 | RADIOLOGY REPORT (SQ) ---
EXAM DESCRIPTION: CHEST SINGLE VIEW IMAGES COMPLETED DATE/TIME: 12/04/2019 4:27 pm REASON FOR STUDY: chest tightness COMPARISON: 10/28/2019 EXAM PARAMETERS: NUMBER OF VIEWS: One view. TECHNIQUE: Single frontal radiographic view of the chest acquired. RADIATION DOSE: NA LIMITATIONS: None. FINDINGS: LUNGS AND PLEURA: No opacities, masses or pneumothorax. No pleural effusion. MEDIASTINUM AND HILAR STRUCTURES: No masses. Contour normal. HEART AND VASCULAR STRUCTURES: Heart normal in size. Normal vasculature. BONES: No acute findings. HARDWARE: None in the chest. OTHER: No other significant finding. IMPRESSION: NO ACUTE RADIOGRAPHIC FINDING IN THE CHEST. TECHNICAL DOCUMENTATION: JOB ID: [id number] 2010 [employer]- All Rights Reserved Reading location - IP/workstation name: [email or web address]
[2019-12-04 18:11] LABS: URINE AMPHETAMINES SCREEN NEGATIVE; URINE BARBITURATES SCREEN NEGATIVE; URINE BENZODIAZEPINES SCREEN NEGATIVE; URINE COCAINE SCREEN NEGATIVE; URINE MARIJUANA (THC) SCREEN NEGATIVE; URINE METHADONE SCREEN NEGATIVE; URINE PHENCYCLIDINE SCREEN NEGATIVE
[2019-12-04 18:20] VITALS: BP 137/87
--- NOTE | 2019-12-04 21:02 | EKG REPORT ---
SEVERITY:- BORDERLINE ECG - SINUS OR ECTOPIC ATRIAL RHYTHM BORDERLINE ST ELEVATION, ANTERIOR LEADS : Confirmed by: Catalino Hsu 04-Dec-2019 21:01:41
== END 2019-12-04 18:20 | disposition home or self-care (01) ==
LOC: ER 15:30
DX: R07.9 Chest pain, unspecified (principal); R06.02 Shortness of breath; R10.10 Upper abdominal pain, unspecified; Z59.0 Homelessness; F17.200 Nicotine dependence, unspecified, uncomplicated; I25.2 Old myocardial infarction; I10 Essential (primary) hypertension; J44.9 Chronic obstructive pulmonary disease, unspecified; E11.9 Type 2 diabetes mellitus without complications
CPT/HCPCS: 36415; 71045; 80053; 80307; 84484; 85025; 93005; 93010; 99285

== ENCOUNTER 2019-12-05 23:08 | Emergency (ER) | payer MEDICAID ==
[2019-12-06] MEDS ORDERED: NORMAL SALINE 1000 ML 1,000 ML IV ONE (00:56)
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
[2019-12-06 01:36] LABS: APPEARANCE,URINE CLEAR; BILIRUBIN,URINE NEGATIVE (NEGATIVE); COLOR,URINE YELLOW; GLUCOSE, URINE NEGATIVE (NEGATIVE); KETONES,URINE NEGATIVE (NEGATIVE); LEUKOCYTE ESTERASE,URINE NEGATIVE (NEGATIVE); NITRITE,URINE NEGATIVE (NEGATIVE); PROTEIN,URINE NEGATIVE (NEGATIVE); URINE SPECIFIC GRAVITY 1.003; UROBILINOGEN,URINE NEGATIVE mg/dL (<2.0)
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
[2019-12-06 01:42] LABS: ABSOLUTE EOSINOPHILS # (AUTO) 0.1 10^3/uL (0.0-0.6); ABSOLUTE LYMPHOCYTES (AUTO) 1.1 10^3/uL (0.5-4.7); ABSOLUTE MONOCYTES (AUTO) 0.4 10^3/uL (0.1-1.4); ABSOLUTE NEUT (AUTO) 1.9 10^3/uL (1.7-8.2); BASOPHILS % (AUTO) 1.2 % (0-2); EOSINOPHILS % (AUTO) 3.8 % (0-6); HEMATOCRIT 42.6 % (37.9-51.0); HEMOGLOBIN 14.6 g/dL (13.5-17.0); LYMPHOCYTES % (AUTO) 29.8 % (13-45); MEAN CORPUSCULAR HEMOGLOBIN 35.2 pg (27.0-33.4); MEAN CORPUSCULAR HGB CONC 34.2 g/dL (32.0-36.0); MEAN CORPUSCULAR VOLUME 103 fl (80-97); MONOCYTES % (AUTO) 11.6 % (3-13); PLATELET COUNT 164 10^3/uL (150-450); RED BLOOD COUNT 4.14 10^6/uL (4.35-5.55); RED CELL DISTRIBUTION WIDTH 13.7 % (11.5-14.0); SEGMENTED NEUTROPHILS % (AUTO) 53.6 % (42-78); TOTAL CELLS COUNTED % (AUTO) 100 %; WHITE BLOOD COUNT 3.6 10^3/uL (4.0-10.5)
[2019-12-06 01:58] LABS: ALBUMIN 4.1 g/dL (3.5-5.0); ALCOHOL 222 mg/dL (NONE DETECTED); ALKALINE PHOSPHATASE 69 U/L (38-126); ANION GAP 10 (5-19); ASPARTATE AMINO TRANSFERASE 56 U/L (17-59); BILIRUBIN,DIRECT 0.4 mg/dL (0.0-0.4); BILIRUBIN,TOTAL 0.8 mg/dL (0.2-1.3); BLOOD UREA NITROGEN 3 mg/dL (7-20); CALCIUM 9.1 mg/dL (8.4-10.2); CARBON DIOXIDE 23 mmol/L (22-30); CHLORIDE 98 mmol/L (98-107); GLUCOSE 90 mg/dL (75-110); POTASSIUM 4.4 mmol/L (3.6-5.0); TOTAL PROTEIN 6.7 g/dL (6.3-8.2)
[2019-12-06 01:58] LABS: URINE AMPHETAMINES SCREEN NEGATIVE; URINE BARBITURATES SCREEN NEGATIVE; URINE BENZODIAZEPINES SCREEN NEGATIVE; URINE COCAINE SCREEN NEGATIVE; URINE MARIJUANA (THC) SCREEN NEGATIVE; URINE METHADONE SCREEN NEGATIVE; URINE PHENCYCLIDINE SCREEN NEGATIVE
[2019-12-06 04:58] VITALS: BP 103/72
--- NOTE | 2019-12-06 20:25 | EKG REPORT ---
SEVERITY:- BORDERLINE ECG - SINUS RHYTHM, APCs BORDERLINE PROLONGED QT INTERVAL : Confirmed by: Catalino Hsu 06-Dec-2019 20:25:04
== END 2019-12-06 04:58 | disposition home or self-care (01) ==
LOC: ER 23:08
DX: F10.920 Alcohol use, unspecified with intoxication, uncomplicated (principal); R41.82 Altered mental status, unspecified; J44.1 Chronic obstructive pulmonary disease with (acute) exacerbation; R55 Syncope and collapse; R07.9 Chest pain, unspecified; E11.9 Type 2 diabetes mellitus without complications; E78.00 Pure hypercholesterolemia, unspecified; I10 Essential (primary) hypertension; I25.2 Old myocardial infarction
CPT/HCPCS: 93005; 99285; 96360; 80307 ×2; 85025; 80053; 81001; 71045; 70450; 93010; J7030

== ENCOUNTER 2019-12-21 17:46 | Emergency (ER) | payer MEDICAID ==
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
--- NOTE | 2019-12-21 19:19 | RADIOLOGY REPORT (SQ) ---
EXAM DESCRIPTION: CHEST 2 VIEWS IMAGES COMPLETED DATE/TIME: 12/21/2019 7:09 pm REASON FOR STUDY: chest pain dizziness COMPARISON: 12/06/2019 TECHNIQUE: Frontal and lateral radiographic views of the chest acquired. NUMBER OF VIEWS: Two view. LIMITATIONS: None. FINDINGS: LUNGS AND PLEURA: No pneumothorax. No consolidation or pleural effusion. MEDIASTINUM AND HILAR STRUCTURES: Stable. HEART AND VASCULAR STRUCTURES: Stable. BONES: No acute findings. HARDWARE: None in the chest. OTHER: No other significant finding. IMPRESSION: NO ACUTE FINDINGS. TECHNICAL DOCUMENTATION: JOB ID: [id number] [place]-72 2010 [employer]- All Rights Reserved Reading location - IP/workstation name: [employer]
--- NOTE | 2019-12-21 19:42 | RADIOLOGY REPORT (SQ) ---
EXAM DESCRIPTION: CT HEAD WITHOUT IMAGES COMPLETED DATE/TIME: 12/21/2019 7:30 pm REASON FOR STUDY: head injury dizziness unsteady positive etoh COMPARISON: 12/06/2019 TECHNIQUE: Axial images acquired through the brain without intravenous contrast. Images reviewed wi th bone, brain and subdural windows. Additional sagittal and coronal reconstructions were generated. Images stored on PACS. All CT scanners at this facility use dose modulation, iterative reconstruction, and/or weight based d osing when appropriate to reduce radiation dose to as low as reasonably achievable (ALARA). [facility]: Dose Right [facility]: CareDose [facility]: Dose Right [facility]: Teradose 4D [facility]: [email or web address] RADIATION DOSE: CT Rad equipment meets quality standard of care and radiation dose reduction techniq ues were employed. CTDIvol: 53.2 mGy. DLP: 1017 mGy-cm. mGy. LIMITATIONS: None. FINDINGS: VENTRICLES: Normal size and contour. CEREBRUM: No masses. No hemorrhage. No midline shift. No evidence for acute infarction. Normal gra y/white matter differentiation. No areas of low density in the white matter. CEREBELLUM: No masses. No hemorrhage. No alteration of density. No evidence for acute infarction. EXTRAAXIAL SPACES: No fluid collections. No masses. ORBITS AND GLOBE: No intra- or extraconal masses. Normal contour of globe without masses. CALVARIUM: No fracture. PARANASAL SINUSES: No fluid or mucosal thickening. SOFT TISSUES: No mass or hematoma. OTHER: No other significant finding. IMPRESSION: NORMAL BRAIN CT WITHOUT CONTRAST. EVIDENCE OF ACUTE STROKE: NO. COMMENT: Quality ID # [id number]: Final reports with documentation of one or more dose reduction techniques (e.g., Automated exposure control, adjustment of the mA and/or kV according to patient size, use of iterative reconstruction technique) TECHNICAL DOCUMENTATION: JOB ID: [id number] 2010 [employer]- All Rights Reserved Reading location - IP/workstation name: [email or web address]
[2019-12-21 19:43] LABS: ABSOLUTE EOSINOPHILS # (AUTO) 0.1 10^3/uL (0.0-0.6); ABSOLUTE MONOCYTES (AUTO) 0.3 10^3/uL (0.1-1.4); ABSOLUTE NEUT (AUTO) 1.6 10^3/uL (1.7-8.2); BASOPHILS % (AUTO) 1.5 % (0-2); EOSINOPHILS % (AUTO) 2.8 % (0-6); HEMATOCRIT 43.5 % (37.9-51.0); HEMOGLOBIN 14.9 g/dL (13.5-17.0); LYMPHOCYTES % (AUTO) 33.7 % (13-45); MEAN CORPUSCULAR HEMOGLOBIN 35.1 pg (27.0-33.4); MEAN CORPUSCULAR HGB CONC 34.2 g/dL (32.0-36.0); MEAN CORPUSCULAR VOLUME 103 fl (80-97); MONOCYTES % (AUTO) 10.4 % (3-13); PLATELET COUNT 119 10^3/uL (150-450); RED BLOOD COUNT 4.24 10^6/uL (4.35-5.55); RED CELL DISTRIBUTION WIDTH 13.8 % (11.5-14.0); SEGMENTED NEUTROPHILS % (AUTO) 51.6 % (42-78); TOTAL CELLS COUNTED % (AUTO) 100 %
[2019-12-21 19:49] LABS: INTERNATIONAL RATION (INR) 0.89; PROTHROMBIN TIME 12.3 SEC (11.4-15.4)
[2019-12-21 19:59] LABS: ALBUMIN 4.1 g/dL (3.5-5.0); ALKALINE PHOSPHATASE 68 U/L (38-126); ANION GAP 9 (5-19); ASPARTATE AMINO TRANSFERASE 99 U/L (17-59); BILIRUBIN,DIRECT 0.2 mg/dL (0.0-0.4); BILIRUBIN,TOTAL 0.7 mg/dL (0.2-1.3); BLOOD UREA NITROGEN 8 mg/dL (7-20); CALCIUM 9.2 mg/dL (8.4-10.2); CARBON DIOXIDE 28 mmol/L (22-30); CHLORIDE 104 mmol/L (98-107); CREATINE KINASE 160 U/L (55-170); GLUCOSE 98 mg/dL (75-110); POTASSIUM 4.6 mmol/L (3.6-5.0); TOTAL PROTEIN 6.7 g/dL (6.3-8.2)
[2019-12-21 20:12] LABS: ALCOHOL 342 mg/dL (NONE DETECTED)
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
[2019-12-21] MEDS ORDERED: RINGERS SOLUTION,LACTATED 1,000 ML IV ONE (21:40)
[2019-12-22 00:15] VITALS: BP 137/84
--- NOTE | 2019-12-22 17:39 | EKG REPORT ---
SEVERITY:- NORMAL ECG - SINUS RHYTHM : Confirmed by: Deja Starr MD 22-Dec-2019 17:37:27
== END 2019-12-22 00:15 | disposition home or self-care (01) ==
LOC: ER 17:46
DX: S09.90XA Unspecified injury of head, initial encounter (principal); R07.89 Other chest pain; Y04.2XXA Assault by strike against or bumped into by another person, initial encounter; F10.10 Alcohol abuse, uncomplicated; R42 Dizziness and giddiness; F17.210 Nicotine dependence, cigarettes, uncomplicated; E78.00 Pure hypercholesterolemia, unspecified; I10 Essential (primary) hypertension; J44.9 Chronic obstructive pulmonary disease, unspecified; Z86.73 Personal history of transient ischemic attack (TIA), and cerebral infarction without residual deficits; I25.2 Old myocardial infarction
CPT/HCPCS: 93005; 99285; 96360; 36415; 80307; 82550; 84443; 85025; 85610; 80053; 84484; 71046; 70450; 93010; J7120

== ENCOUNTER 2020-03-06 20:20 | Emergency (ER) | payer MEDICAID ==
[2020-03-06] MEDS ORDERED: ACETAMINOPHEN 325 MG TABLET PO ONE (20:53)
[2020-03-06] MEDS ORDERED: DIPH/PERTUSS(ACELL)/TETANUS VAC/PF 0.5 ML SYR (>=10YO) IM ONE (20:53)
--- NOTE | 2020-03-06 20:55 | ER Document Report ---
ED Medical Screen (RME) - General Chief Complaint: Fall Stated Complaint: FALL/HEAD PAIN Time Seen by Provider: 03/06/20 20:47 Primary Care Provider: PHILLIP MEJIA MD [Primary Care Provider] - Follow up as needed Notes: Patient states that he was on a ladder 7 feet of trimming limbs from a tree. Patient states that the limb kicked back and hit him in the head and knocked him out of the tree. Patient states he fell about 7 foot onto the ground. Patient states that he has had headache, neck and low back pain. Patient states he has had blurred vision primarily to the left eye although the right eye is occasio kiet blurred. Patient states that he does typically use reading glasses. Patient denies any nausea or vomiting. Patient denies any pain to his extremities. Patient does admit to drinking alcohol this evening. Patient has underlying history of asthma, COPD and depression. I have greeted and performed a rapid initial assessment of this patient. A comprehensive ED assessment and evaluation of the patient, analysis of test results and completion of the medical decision making process will be conducted by additional ED providers. TRAVEL OUTSIDE OF THE [place] IN LAST 30 DAYS: No - Related Data Allergies/Adverse Reactions: No Known Allergies Allergy (Verified 10/27/19 19:44) Past Medical History - Past Medical History Cardiac Medical History: Reports: Hx Heart Attack, Hx Hypercholesterolemia, Hx Hypertension Pulmonary Medical History: Reports: Hx Asthma, Hx Bronchitis, Hx COPD, Hx Pneumonia Neurological Medical History: Reports: Hx Cerebrovascular Accident Endocrine Medical History: Reports: Hx Diabetes Mellitus Type 2 Renal/ Medical History: Denies: Hx Peritoneal Dialysis Musculoskeltal Medical History: Reports Hx Arthritis, Reports Hx Musculoskeletal Trauma Skin Medical History: Reports Hx Cellulitis Psychiatric Medical History: Denies: Hx Depression Traumatic Medical History: Reports: Hx Fractures - Right ankle and leg Past Surgical History: Reports: Hx Appendectomy, Hx Orthopedic Surgery - orif left leg - Immunizations Immunizations up to date: Yes Hx Diphtheria, Pertussis, Tetanus Vaccination: Yes - PT UNSURE Physical Exam - General General appearance: Appears well, Alert Notes: Abrasions to forehead, c-collar in place, patient with lower lumbar midline tenderness - Respiratory Respiratory status: No respiratory distress Breath sounds: Normal Doctor's Discharge - Discharge Referrals: PHILLIP MEJIA MD [Primary Care Provider] - Follow up as needed
--- NOTE | 2020-03-06 21:46 | ER Document Report ---
ED Fall - General Chief Complaint: Fall Stated Complaint: FALL/HEAD PAIN Time Seen by Provider: 03/06/20 20:47 Primary Care Provider: PHILLIP MEJIA MD [Primary Care Provider] - Follow up in 3-5 days Notes: Patient is a 59-year-old male presents emergency department after a fall from a ladder. States this happened yesterday. States that he was trimming some tree branches yesterday and a limb had flung back and hit him on the left side of the head. He fell about 7 feet and landed on the ground. States that he has low back pain. He was able to walk. Patient is a drinker. Denies any extremity pain from the fall, but states he has chronic left knee pain that comes and goes. Denies any pain to the left knee at this time. States that he also has some blurred vision to his left eye since the incident. Denies any sensation of having anything in his eye. TRAVEL OUTSIDE OF THE [place] IN LAST 30 DAYS: No - Related data Allergies/Adverse Reactions: No Known Allergies Allergy (Verified 10/27/19 19:44) Past Medical History - General Information source: Patient - Social History Smoking Status: Current Every Day Smoker Family History: Reviewed & Not Pertinent, CAD, DM, Hyperlipidemia, Hypertension, Malignancy - Past Medical History Cardiac Medical History: Reports: Hx Heart Attack, Hx Hypercholesterolemia, Hx Hypertension Pulmonary Medical History: Reports: Hx Asthma, Hx Bronchitis, Hx COPD, Hx Pneumonia Neurological Medical History: Reports: Hx Cerebrovascular Accident Endocrine Medical History: Reports: Hx Diabetes Mellitus Type 2 Renal/ Medical History: Denies: Hx Peritoneal Dialysis Musculoskeletal Medical History: Reports Hx Arthritis, Reports Hx Musculoskeletal Trauma Skin Medical History: Reports Hx Cellulitis Psychiatric Medical History: Denies: Hx Depression Traumatic Medical History: Reports: Hx Fractures - Right ankle and leg Past Surgical History: Reports: Hx Appendectomy, Hx Orthopedic Surgery - orif left leg - Immunizations Immunizations up to date: Yes Hx Diphtheria, Pertussis, Tetanus Vaccination: Yes - PT UNSURE Review of Systems - Review of Systems Notes: REVIEW OF SYSTEMS: CONSTITUTIONAL : Denies recent illness. Denies recent unintentional weight loss. Denies fever, chills, or sweats. EENT: Denies ear, throat, or mouth pain, discharge, or symptoms. Denies nasal or sinus congestion. See HPI. CARDIOVASCULAR: Denies chest pain. RESPIRATORY: Denies shortness of breath, cough, congestion, difficulty breathing, or wheezing. GASTROINTESTINAL: Denies nausea, vomiting, and diarrhea. Denies abdominal pain. Denies constipation. GENITOURINARY: Denies difficulty urinating, burning, blood in urine, urgency or frequency. MUSCULOSKELETAL: See HPI. SKIN: Denies rash, itchiness, or lesions HEMATOLOGIC : Denies easy bruising or bleeding. LYMPHATIC: Denies swollen, painful, enlarged glands. NEUROLOGICAL: Denies no numbness or tingling denies weakness. Denies altered mental status. Denies alteration in speech. See HPI. PSYCHIATRIC: Denies stress, anxiety, alteration in sleep patterns, or depression. All other systems reviewed and negative. Physical Exam - Vital signs Vitals: Temp 98.3 F 03/06/20 20:21 - Notes Notes: PHYSICAL EXAMINATION: GENERAL: Appears well, healthy, well-nourished, no acute distress. HEAD: Normocephalic, abrasions noted to left forehead. EYES: PERRL, conjunctiva normal, all extraocular movements intact, sclera nonicteric ENT: Moist mucous membranes. NECK: Supple, no noticeable swelling, redness, rash. Normal range of motion. LUNGS: Equal breath sounds bilaterally and clear to auscultation. No wheezes rales or rhonchi. CARDIOVASCULAR: S1-S2, regular rate, regular rhythm. Radial pulses 2+, normal. ABDOMEN: Normoactive bowel sounds. Soft, nontender, no guarding, no rebound t enderness, and no masses palpated. EXTREMITIES: Normal strength and range of motion, no pitting or edema. No cyanosis. NEUROLOGICAL: Moves all extremities upon command. Strength 5/5 in all extrem ities. PSYCH: Normal mood, normal affect. SKIN: Warm, dry. No rash, lesions, ulcerations noted. Normal skin turgor. BACK: Tenderness noted to the left side of the mid to lower back. Course - Re-evaluation Re-evalutation: 03/06/20 22:30 CT of the head is unremarkable. CT of the cervical spine is also unremarkable. Chest x-ray is negative. Lumbar spine x-ray is also negative. On images, the patient has chronic disease, hematology is unremarkable. Chemistries are also unremarkable. Alcohol is 86. Patient will be instructed on taking Tylenol as needed for pain relief. Follow-up precautions were given. Verbal discharge instructions were given to the patient. They verbalized understanding. They are stable for discharge. - Vital Signs Vital signs: Temp Pulse Resp BP Pulse Ox 98.3 F 17 129/80 H 98 03/06/20 22:45 03/06/20 22:45 03/06/20 22:45 03/06/20 22:45 - Laboratory Results Result Diagrams: 03/06/20 21:48 03/06/20 21:48 Laboratory Results Interpreted: 03/06/20 21:48 RBC 4.24 L MCV 101 H Critical Laboratory Results Reviewed: No Critical Results - Radiology Results Critical Radiology Results Reviewed: No Critical Results Discharge - Discharge Clinical Impression: Fall Qualifiers: Encounter type: initial encounter Qualified Code(s): W19.XXXA - Unspecified fall, initial encounter Headache Qualifiers: Headache type: post-traumatic Headache chronicity pattern: acute headache Intractability: not intractable Qualified Code(s): G44.319 - Acute post- traumatic headache, not intractable Concussion Qualifiers: Encounter type: initial encounter Loss of consciousness presence/duration: without LOC Qualified Code(s): S06.0X0A - Concussion without loss of consciousness, initial encounter Condition: Stable Disposition: HOME, SELF-CARE Additional Instructions: You were seen today in the emergency department after a fall. Your images do not show any acute fractures. You can take Tylenol 1000 mg every 6 hours as needed for pain. Follow-up with your primary care provider in regards to this visit. Make sure that you rest. Get plenty of rest. Concussion You have suffered a concussion -- a temporary loss of certain brain functions due to a mild brain injury. The recovery is usually rapid and complete. The temporary problems occurring with a concussion can include loss of consciousness, dizziness, nausea, vomiting, and confusion. Repeat concussions can cause brain damage. In the future, avoid activities that will cause a blow to your head. Wear a helmet for sports such as snowboarding, biking, or skating. It's important that someone be with you for the first 24 hours. During this time, do not exercise or drive a vehicle. Do not take any pain medication stronger than acetaminophen unless prescribed by the physician. Any significant changes should be reported immediately to the physician. Signs of a problem may include: (1) Mental confusion (2) Incoordination or staggering (3) Repeated or forceful vomiting (4) Clear or bloody drainage from ear, mouth, or nose (5) Severe headache, not relieved by acetaminophen or prescribed pain medication (6) Failure to improve in 24 hours Referrals: PHILLIP MEJIA MD [Primary Care Provider] - Follow up in 3-5 days
--- NOTE | 2020-03-06 21:57 | RADIOLOGY REPORT (SQ) ---
EXAM DESCRIPTION: CT CERVICAL SPINE WITHOUT 03/06/2020 8:52 PM [employer] CLINICAL HISTORY: 59 years Male, fall from tree, neck pain; ; COMPARISON: Prior CT head dated 12/21/2019 Technical factors: This exam was performed according to our departmental dose-optimization program, which includes automated exposure control, adjustment of the mA and/or kV according to patient size and/or use of iterative reconstruction technique. No intravenous contrast was administered. FINDINGS: Limited evaluation of the posterior fossa structures reveals no suspicious abnormality. Tiny ossific densities located adjacent to the left occipital condyle appear unchanged from the previous CT head dated 12/21/2019, considered chronic. Otherwise, occipital condyles are normal. Lateral masses of C1 and C2 align properly. Base and tip of the dens are intact. Craniocervical alignment is maintained. Cervical vertebral body heights and alignments are maintained. Mild to moderate multilevel cervical spondylosis is evident, designated by intervertebral disc space narrowing, hypertrophic endplate spurring, and facet arthropathy. Multilevel uncovertebral joint hypertrophy is also noted, contributing to moderate bilateral neural foraminal stenosis at C3-C4, severe left neural foraminal stenosis at C4-C5, mild bilateral neural foraminal stenosis at C5-C6, and mild left neural foraminal stenosis at C6-C7. Limited evaluation of both lung apices reveals biapical scarring. Mild upper zone predominant emphysematous changes are also noted. Paravertebral soft tissues show no suspicious abnormality. However, there are calcifications about the bilateral carotid vessels. IMPRESSION: No acute fracture or malalignment. [id number] multilevel cervical spondylosis.
--- NOTE | 2020-03-06 21:59 | RADIOLOGY REPORT (SQ) ---
EXAM DESCRIPTION: CT HEAD WITHOUT CLINICAL HISTORY: 59 years Male Hit on the head, fell out of tree TECHNIQUE: Noncontrast CT head. All CT scans at this facility use dose modulation, iterative reconstruction, and/or weight based dosing when appropriate to reduce radiation dose to as low as reasonably achievable. COMPARISON: Status post fall FINDINGS: Ortega matter, white matter, ventricles, and cisterns are within normal limits. No acute hemorrhage or mass effect. Visualized portions of paranasal sinuses are clear. Minimal scattered nonspecific fluid within the left mastoid air cells. Visualized portions of the calvarium are within normal limits. There is evidence of a frontal scalp hematoma. IMPRESSION: 1. No acute intracranial findings.
[2020-03-06 22:05] LABS: ABSOLUTE BASOPHILS # (AUTO) 0.1 10^3/uL (0.0-0.2); ABSOLUTE EOSINOPHILS # (AUTO) 0.2 10^3/uL (0.0-0.6); ABSOLUTE LYMPHOCYTES (AUTO) 1.4 10^3/uL (0.5-4.7); ABSOLUTE MONOCYTES (AUTO) 0.4 10^3/uL (0.1-1.4); ABSOLUTE NEUT (AUTO) 3.2 10^3/uL (1.7-8.2); BASOPHILS % (AUTO) 1.5 % (0-2); HEMATOCRIT 42.7 % (37.9-51.0); HEMOGLOBIN 14.2 g/dL (13.5-17.0); MEAN CORPUSCULAR HEMOGLOBIN 33.4 pg (27.0-33.4); MEAN CORPUSCULAR HGB CONC 33.2 g/dL (32.0-36.0); MEAN CORPUSCULAR VOLUME 101 fl (80-97); MONOCYTES % (AUTO) 8.1 % (3-13); PLATELET COUNT 187 10^3/uL (150-450); RED BLOOD COUNT 4.24 10^6/uL (4.35-5.55); RED CELL DISTRIBUTION WIDTH 13.3 % (11.5-14.0); SEGMENTED NEUTROPHILS % (AUTO) 59.4 % (42-78); TOTAL CELLS COUNTED % (AUTO) 100 %; WHITE BLOOD COUNT 5.3 10^3/uL (4.0-10.5)
--- NOTE | 2020-03-06 22:05 | RADIOLOGY REPORT (SQ) ---
EXAM DESCRIPTION: L SPINE WHOLE [facility]: XR LUMBAR SPINE ANTEROPOSTERIOR, LATERAL, AND OBLIQUES Views: 5 CLINICAL HISTORY: 59 years Male; fall from tree, low back pain; COMPARISON: None. FINDINGS: There is straightening of the normal lumbar lordosis, but no focal subluxation. Vertebral heights are preserved. Mild facet arthropathy in the lower lumbar spine. No suspicious lytic or blastic lesions. No acute fractures. IMPRESSION: 1. No acute fracture or subluxation
--- NOTE | 2020-03-06 22:12 | RADIOLOGY REPORT (SQ) ---
CHEST X-RAY 2 view on 03/06/2020 at 9:31 PM CLINICAL INDICATION: Fall from tree, per protocol for mechanism of injury COMPARISON: 12/21/2019 FINDINGS: The lungs are clear. Cardiac, hilar and mediastinal contours are within normal limits. Pulmonary vascularity is within normal limits. No bony abnormality is noted. IMPRESSION: No active disease.
[2020-03-06 22:16] LABS: ALCOHOL 86 mg/dL (NONE DETECTED); ANION GAP 9 (5-19); BLOOD UREA NITROGEN 8 mg/dL (7-20); CALCIUM 9.3 mg/dL (8.4-10.2); CARBON DIOXIDE 23 mmol/L (22-30); CHLORIDE 106 mmol/L (98-107); GLUCOSE 99 mg/dL (75-110); POTASSIUM 3.7 mmol/L (3.6-5.0)
[2020-03-06 22:50] VITALS: BP 129/80
== END 2020-03-06 22:58 | disposition home or self-care (01) ==
LOC: ER 20:20
DX: S06.0X0A Concussion without loss of consciousness, initial encounter (principal); M54.5 Low back pain; W18.09XA Striking against other object with subsequent fall, initial encounter; Y93.H9 Activity, other involving exterior property and land maintenance, building and construction; M47.812 Spondylosis without myelopathy or radiculopathy, cervical region; G44.319 Acute post-traumatic headache, not intractable; H53.8 Other visual disturbances; F17.200 Nicotine dependence, unspecified, uncomplicated; I10 Essential (primary) hypertension; I25.2 Old myocardial infarction; J44.9 Chronic obstructive pulmonary disease, unspecified; E11.9 Type 2 diabetes mellitus without complications; Z23 Encounter for immunization
CPT/HCPCS: 99285; 90471; 36415; 80307; 85025; 80048; 71046; 72110; 70450; 72125; 90715; J3490

== ENCOUNTER 2020-03-21 13:27 | Emergency (ER) | payer MEDICAID | END 2020-03-21 16:29 | disposition left against medical advice (07) | LOC: ER 13:27 | DX: Z53.21 Procedure and treatment not carried out due to patient leaving prior to being seen by health care provider (principal) ==